=== PATIENT | male | born 1965 | race Caucasian/White ===

== ENCOUNTER → 2019-09-02 09:09 | Outpatient (CLI) | payer OTHER, SELFPAY ==
--- NOTE | 2019-09-02 | DI.MRI.S_ITS ---
PROCEDURE: MR PELIS WO/W CON INDICATIONS: PROSTATE CANCER TECHNIQUE: Coronal HASTE, axial T1 FSE with fat saturation, 3-plane nonbreath-hold T2 FSE. After the administration of contrast, dynamic axial, delayed axial and coronal VIBE or 2-D FLASH with fat saturation through the pelvis. Optional diffusion weighted imaging and ADC may be performed. COMPARISON: [facility], [place], [place] BONE SCAN WHOLE BODY, 08/22/2019, 12:28. [facility], CT, CT CHEST ABDOMEN PELVIS WITH CONTRAST, 08/26/2019, 12:52. FINDINGS: Image quality: Diffusion weighted and dynamic contrast enhanced images are diagnostic. Prostate: Gland size is 5.0 x 4.0 x 4.8 cm; ellipsoid gland volume is 50 mL. There is heterogeneous enlargement of the transition zone compatible with BPH. Lesion size(s): Lesion 1: 1.7 x 1.4 x 2.4 cm. Lesion location(s) (sector): Lesion 1: Left posterior peripheral zone within the mid prostate extending into the apex. Lesion description: Lesion 1: There is a lobulated lesion with indistinct margins. No definite extracapsular periprostatic invasion. No definite seminal vesicle invasion. T2 weighted imaging (T2WI) morphology score: Lesion 1: 5. Diffusion weighted imaging (DWI) morphology score: Lesion 1: 5. Dynamic contrast enhancement (DCE): Lesion 1: Present. Lesion PI-RADS score: Genitourinary system: Bladder wall thickness is normal. Distal ureters are non distended. Bowel and peritoneum: No pathologic free pelvic fluid. Inferior colon and small bowel loops are normal in caliber. Nodes and vessels: No pelvic or inguinal adenopathy by size criteria. Iliac vessels are normal in caliber. Soft tissues: No inguinal hernias. Bones: Marrow demonstrates normal overall signal, without suspicious lesions to suggest metastases. IMPRESSION: 1. PI-RADS 5 lesion within the left posterior peripheral zone in the mid-prostate extending into the apex consistent with patient's history of prostate cancer. No definite extracapsular periprostatic invasion. 2. No evidence of lymphadenopathy or metastatic disease in the pelvis. Dictated by: Max Daniel M.D. on 09/02/2019 at 15:58 Approved by: Max Daniel M.D. on 09/02/2019 at 16:11
== END ==
PROVIDERS: Visit Provider Specialist
DX: C61 Malignant neoplasm of prostate (principal)
CPT/HCPCS: 72197; A9579

== ENCOUNTER 2019-09-15 14:18 | Emergency (ER) | payer OTHER, SELFPAY ==
[2019-09-15 14:25] VITALS: BP 197/109; PULSE 94; RESP 18; TEMP 36.8; O2SAT 97
--- NOTE | 2019-09-15 14:32 | PC.NURSE ---
nasal clamp placed at time of triage
--- NOTE | 2019-09-15 16:30 | ED.EPISTAXIS ---
HPI - Epistaxis General Chief complaint: Nasal Problem Stated complaint: nose bleed 2 hours wont stop Time Seen by Provider: 09/15/19 15:40 Source: patient Mode of arrival: Ambulatory History of Present Illness HPI Narrative: Patient comes emergency department complaining of a nose bleed that started 2 hours ago in 1 stop. He denies trauma to his nose. He has chronic allergies but states they are not worse than usual, and that he has never had this happen before. Patient denies being on any anticoagulants. He has a history of hypertension, but states it is reasonably well controlled usually. No headache. No fevers. No other complaints at this time. No easy bruising or bleeding anywhere else. Related Data Previous Rx's Medication Instructions Recorded olopatadine [Patanol] 1 gtt OP BID #5 gtt 08/22/13 lisinopril-hydrochlorothiazide 1 tab PO QDAY #60 tab 09/06/16 omeprazole 20 mg PO Q DAY #60 cap 09/06/16 Allergies Allergy/AdvReac Type Severity Reaction Status Date / Time No Known Drug Allergies Allergy Verified 09/15/19 14:45 Review of Systems Constitutional Constitutional: Denies chills, Denies fatigue, Denies fever(s), Denies frequent falls, Denies lethargy and Denies weakness Eyes Eyes: Denies change in vision, Denies eye discharge, Denies irritation and Denies loss of vision ENT Ears, Nose, Mouth, and Throat: Denies change in voice, Denies dizziness, Reports epistaxis, Denies neck pain, Denies sore throat and Denies throat swelling Cardiovascular Cardiovascular: Denies chest pain, Denies irregular heart rhythm, Denies lightheadedness, Denies palpitations, Denies dyspnea, Denies dyspnea on exertion and Denies orthopnea Respiratory Respiratory: Denies cough, Denies dyspnea, Denies dyspnea on exertion and Denies wheezing Gastrointestinal Gastrointestinal: Denies abdominal pain, Denies change in bowel habits, Denies diarrhea, Denies nausea and Denies vomiting Genitourinary Genitourinary: Denies hematuria, Denies flank pain, Denies urinary incontinence and Denies urinary urgency Musculoskeletal Musculoskeletal: Denies back pain, Denies muscle weakness, Denies neck pain, Denies numbness and Denies tingling Integumentary/Breasts Skin/Breast: Denies pruritus, Denies erythema, Denies rash and Denies wounds Neurologic Neurologic: Denies behavioral changes, Denies confusion, Denies dizziness, Denies frequent falls, Denies loss of vision, Denies numbness, Denies tingling and Denies weakness Psychiatric Psychiatric: Denies anxiety, Denies behavioral changes, Denies confusion, Denies depression, Denies homicidal ideation and Denies suicidal ideation Endocrine Endocrine: Denies fatigue, Denies flushing and Denies palpitations Hematologic/Lymphatic Hematologic/Lymphatic: Denies easy bruising Allergic/Immunologic Allergic/Immunologic: Denies urticaria, Denies throat swelling and Denies wheezing Patient History Medical History Prostate cancer (Acute) Surgical History Status post appendectomy Social History Smoking Status: Never smoker Substance Use Type: does not use Exam Narrative Exam Narrative: Nose, continued: Blood appears to be coming from higher source in the left naris, which is not able to be visualized on exam. Initial Vital Signs Initial Vital Signs: Vital Signs Temperature 98.2 F 09/15/19 14:25 Pulse Rate 94 H 09/15/19 14:25 Respiratory Rate 18 09/15/19 14:25 Blood Pressure 197/109 H 09/15/19 14:25 Pulse Oximetry 97 09/15/19 14:25 Const General: cooperative and well developed Nutritional Appearance: well nourished Orientation: alert, awake, oriented x3 and not confused [facility] Head: normocephalic and atraumatic Ears: external ears normal Nose: external nose normal and epistaxis (Moderate, L naris) Face and sinus: face symmetric and No dry mucous membranes Mouth: oral mucosae normal and moist mucous membranes Teeth and gingiva: dentition normal Eyes General: appearance normal, both eyes and all related structures Eyelids: eyelids normal Conjunctivae: conjunctivae normal Sclera: sclerae normal Pupils: PERRL EOM: EOM intact bilaterally Neck Neck: normal visual inspection, trachea midline, No lymphadenopathy, No midline deformity and No JVD Lymphatic: No lymphedema Chest Chest: normal inspection of the chest Resp Effort & Inspection: normal respiratory effort, able to speak in complete sentences, no respiratory distress and no use of accessory muscles Back/Spine/Pelvis Back: No CVA tenderness Cervical Spine: cervical ROM normal and No pain with cervical ROM Thoracic/Lumbar Spine: thoracic and lumbar spine normal to inspection Skin General: no rashes or lesions noted, No jaundice and No petechiae Neuro General: alert, oriented x3, gait normal and no focal motor deficits Speech: speech normal Extrem General: full ROM Psych Appearance: well kempt Mental Status: mental status grossly normal Attitude: cooperative Thought Content: normal and suicidality Judgment: judgment good Course Course Course Narrative: Patient was initially treated with nasal packing with a rhino rocket 4.5 cm, which initially achieved hemostasis, but patient's bleeding began again approximately 15 minutes later. This time, a 7.5 cm rhino rocket was placed, and infused with TXA and oxymetazoline. Patient was without further bleeding after this. We have discussed home management the symptoms the need for follow-up with ENT in the next 3-4 days. Patient is agreeable to the plan. We have discussed the usual indications for return. Orders Ordered: Discontinued Medications Oxymetazoline HCl (Afrin) 2 sprays NASAL NOW ONE Stop: 09/15/19 15:48 Tranexamic Acid (Cyklokapron) 2,000 mg INJ INTRA-OP ONE Stop: 09/15/19 16:55 Vital Signs Vital signs: Vital Signs - 8 hr 09/15/19 14:25 Temperature 98.2 F Pulse Rate 94 H Respiratory Rate 18 Blood Pressure 197/109 H Pulse Oximetry 97 MDM - Epistaxis Medical Records Attestation: I reviewed the patient's medical records. Discharge Plan Departure Patient Disposition: Home Clinical Impression: Epistaxis Discharge Date/Time: 09/15/19 18:40 Instructions: DI for Nosebleed Activity Restrictions/Additional Instructions: Please follow up with ENT this week to have her packing removed and nose rechecked. Prescriptions: No Action olopatadine [Patanol] 5 ML drops 1 gtt OP BID Qty: 5 RF: 3 omeprazole 20 MG capsule,delayed release(DR/EC) 20 mg PO Q DAY Qty: 60 RF: 0 lisinopril-hydrochlorothiazide 20 MG/25 MG tablet 1 tab PO QDAY Qty: 60 RF: 0 Referrals: Mario Madison MD [Physician] -
[2019-09-15 18:40] VITALS: BP 179/101; PULSE 74; RESP 20; O2SAT 98
== END 2019-09-15 18:40 | disposition home or self-care (01) ==
PROVIDERS: Emergency Provider Emergency Medicine
DX: R04.0 Epistaxis (principal)
CPT/HCPCS: 30903; 99282

== ENCOUNTER → 2020-02-09 10:36 | Outpatient (CLI) | payer OTHER, SELFPAY ==
--- NOTE | 2020-02-09 | DI.CT.S_ITS ---
PROCEDURE: CT CHEST ABD PEL W CON INDICATIONS: Malignant neoplasm of prostate TECHNIQUE: After the administration of oral and intravenous contrast, 5 mm thick sections acquired from the lung apices to the symphysis. 5 mm coronal and sagittal reformats were performed, with additional 7 mm coronal MIP reformats through the lungs. For radiation dose reduction, the following was used: automated exposure control, adjustment of mA and/or kV according to patient size. COMPARISON: [facility], CT, CT CHEST ABDOMEN PELVIS WITH CONTRAST, 08/26/2019, 12:52. FINDINGS: Image quality: Excellent. CHEST: Lungs and pleura: No acute airspace opacities. Small amount of peripheral scar inferiorly and laterally in the left lower lobe. No suspicious nodules or masses. No pleural effusions or pneumothorax. Central and peripheral airways appear patent and normal in caliber. Mediastinum: Heart size is normal. No pericardial effusion. No mediastinal or hilar adenopathy by size criteria. Thoracic aorta and central pulmonary arteries are normal in size. Esophagus is normal in caliber. No hiatal hernia. Chest wall: No axillary or supraclavicular adenopathy by size criteria. Thyroid gland is normal. ABDOMEN: Solid organs: Liver is normal in size and enhancement. Gallbladder is normal. Biliary system is non dilated. Pancreas enhances normally. Spleen is normal in size and enhancement. No adrenal nodules. Kidneys demonstrate normal size and enhancement, without hydronephrosis. Peritoneum and bowel: Bowel loops demonstrate normal wall thickness and caliber. No free fluid or air. Nodes and vessels: No retroperitoneal or mesenteric adenopathy by size criteria. Aorta and inferior vena cava are normal in size. Miscellaneous: No ventral hernias. PELVIS: Genitourinary: Bladder wall thickness is normal. Interval prostatectomy. Miscellaneous: There is a left inguinal fluid collection measuring 3.7 x 2.5 cm. The overlying distal left rectus sheath demonstrates moderate inflammatory changes. There is slight increase in size of left inguinal lymph nodes, probably reactive.No inguinal hernias. Bones: Small sclerotic bone lesions in the left glenoid, left T7 vertebral body lamina, L5 vertebral body, bilateral iliac bones, right superior acetabulum, left femoral head appear stable, slightly more sclerotic. No vertebral body compression fractures. IMPRESSION: 1. Interval prostatectomy with small left inguinal fluid collection, likely a lymphocele or seroma. There is adjacent left inguinal adenopathy, presumably reactive. 2. Multiple small scattered sclerotic bone lesions are stable size, but have become slightly more sclerotic. This may be technical in nature. Correlate with bone scan. Osseous metastases are not excluded. Dictated by: Brittany Baker M.D. on 02/09/2020 at 13:47 Approved by: Brittany Baker M.D. on 02/09/2020 at 14:04
--- NOTE | 2020-02-09 | DI.NM.S_ITS ---
PROCEDURE: [place] BONE SCAN WHOLE BODY RADIOPHARMACEUTICAL: 20.2 mCi Tc-99m MDP IV. INDICATIONS: Malignant neoplasm of prostate TECHNIQUE: Delayed whole-body scintigrams were obtained approximately 3-4 hours after intravenous injection of radiotracer. Anterior and posterior views were acquired from vertex to feet. COMPARISON: [facility], [place], [place] BONE SCAN WHOLE BODY, 08/22/2019, 12:28. [facility], CT, CT CHEST ABD PEL W CON, 02/09/2020, 11:30. FINDINGS: As was previously seen on posterior imaging at the midthoracic spine there is right greater than left isotope uptake, equivalent on the current study with reference to the study from 08/22/19. CT scanning obtained 02/09/20 allows visualization of this area in greater detail, documenting right greater than left degenerative osteophytic spurring as the underlying cause. Additionally, there is left greater than right facet osteoarthritis at the L5-S1 articulation, also seen by posterior bone scan imaging and unchanged from the prior bone scan. Degenerative changes greater at the right a.c. joint and on the left, at the right patellofemoral joint on the left. IMPRESSION: Stable degenerative changes as discussed, with benefits of CT scanning for correlation on the current nuclear medicine bone scan. No suspicion for development of osseous metastatic disease, no change management specialist time. Dictated by: Rodolfo Unger M.D. on 02/09/2020 at 15:52 Approved by: Rodolfo Unger M.D. on 02/09/2020 at 15:56
== END ==
PROVIDERS: PCP Student in an Organized Health Care Education/Training Program; Referring Provider Specialist; Visit Provider Specialist
DX: C61 Malignant neoplasm of prostate (principal); M89.9 Disorder of bone, unspecified; R59.0 Localized enlarged lymph nodes; M47.817 Spondylosis without myelopathy or radiculopathy, lumbosacral region
CPT/HCPCS: 71260; 74177; 78306; A9503; Q9967

== ENCOUNTER → 2020-07-23 11:34 | Outpatient (CLI) | payer OTHER, SELFPAY ==
[2020-07-23 13:31] LABS: TSH w/ Reflex to FT4 1.04 uIU/mL (0.47-4.68)
== END ==
PROVIDERS: PCP Family Medicine; Referring Provider Family Medicine; Visit Provider Family Medicine
DX: Z13.29 Encounter for screening for other suspected endocrine disorder (principal); M25.559 Pain in unspecified hip; M16.0 Bilateral primary osteoarthritis of hip; M47.816 Spondylosis without myelopathy or radiculopathy, lumbar region
CPT/HCPCS: 36415; 84443

== ENCOUNTER → 2020-07-23 11:48 | Outpatient (CLI) | payer OTHER, SELFPAY ==
--- NOTE | 2020-07-23 11:50 | DI.RAD.S_ITS ---
PROCEDURE: XR HIP W PEL IF DONE LT MIN 4V INDICATIONS: hip pain TECHNIQUE: AP pelvis with lateral view(s) of the left and right hip(s). COMPARISON: None. FINDINGS: Bones: No fracture. Small right os acetabulum incidentally noted. Lower lumbar spondylosis and facet arthropathy. Mild bilateral hip joint degeneration. Soft tissues: The visualized bowel gas pattern is normal. No suspicious soft tissue calcifications. IMPRESSION: Mild bilateral hip joint degeneration. Dictated by: Dario Olivia M.D. on 07/23/2020 at 13:32 Approved by: Dario Olivia M.D. on 07/23/2020 at 13:34
== END ==
PROVIDERS: PCP Family Medicine; Referring Provider Family Medicine; Visit Provider Family Medicine
DX: M25.559 Pain in unspecified hip (principal); M16.0 Bilateral primary osteoarthritis of hip; M47.816 Spondylosis without myelopathy or radiculopathy, lumbar region; Z13.29 Encounter for screening for other suspected endocrine disorder
CPT/HCPCS: 36415; 73522; 84443

== ENCOUNTER → 2020-08-10 12:15 | Outpatient (CLI) | payer OTHER, SELFPAY ==
[2020-08-12 16:12] LABS: Prostate Specific Antigen 0.423 ng/mL (0.10-4.00)
== END ==
PROVIDERS: PCP Family Medicine; Referring Provider Specialist; Visit Provider Specialist
DX: C61 Malignant neoplasm of prostate (principal)
CPT/HCPCS: 36415; 84153

== ENCOUNTER → 2021-02-14 14:44 | Outpatient (CLI) | payer OTHER, SELFPAY ==
[2021-02-14 15:51] LABS: Prostate Specific Antigen < 0.064 ng/mL (0.10-4.00)
== END ==
PROVIDERS: PCP Family Medicine; Referring Provider Specialist; Visit Provider Specialist
DX: R97.20 Elevated prostate specific antigen [PSA] (principal)
CPT/HCPCS: 36415; 84153

== ENCOUNTER → 2021-02-23 12:12 | Outpatient (CLI) | payer OTHER, SELFPAY ==
[2021-02-23 13:03] LABS: Add Manual Diff / Slide Review NO; Basophils Absolute Auto 100 /uL (0-100); Basophils Percent Auto 0.7 % (0-2); Eosinophils Absolute Auto 200 /uL (0-450); Eosinophils Percent Auto 2.2 % (2-4); Hematocrit 39.7 % (41-53); Hemoglobin 13.9 g/dL (13.5-17.5); Lymphocytes Absolute Auto 800 /uL (1100-4500); Lymphocytes Percent Auto 10.1 % (25-40); Mean Corpuscular HGB Conc 34.9 % (30-36); Mean Corpuscular Hemoglobin 32.7 PG (26-34); Mean Corpuscular Volume 93.7 fL (80-100); Monocytes Absolute Auto 600 /uL (0-900); Monocytes Percent Auto 7.1 % (3-14); Neutrophils Absolute Auto 6600 /uL (1500-7000); Neutrophils Percent Auto 79.9 % (50-75); Platelet Count 225 X10^3/uL (150-400); Red Blood Cell Count 4.24 X10^6/uL (4.5-5.9); White Blood Cell Count 8.3 X10^3/uL (4.5-11.0)
[2021-02-23 13:39] LABS: Alanine Aminotransferase 21 IU/L (<50); Albumin 4.5 g/dL (3.5-5.0); Albumin Globulin Ratio 1.5 (1.0-2.8); Alkaline Phosphatase 96 U/L (38-126); Aspartate Aminotransferase 21 IU/L (17-59); BUN Creatinine Ratio 18.7 (6-22); Bilirubin Total 0.4 mg/dL (0.2-1.3); Blood Urea Nitrogen 14 mg/dL (9-20); Calcium 9.7 mg/dL (8.4-10.2); Carbon Dioxide 21 mmol/L (22-32); Chloride 101 mmol/L (98-107); Estimated Glomerular Filt Rate > 60.0 mL/min (>60); Glucose 365 mg/dL (70-100); HEMOLYSIS < 15 (0-50); Potassium 4.4 mmol/L (3.4-5.1); Sodium 135 mmol/L (137-145); Total Protein 7.5 g/dL (6.3-8.2)
[2021-02-23 14:26] LABS: Hemoglobin A1C% w Est Avg Glu > 14.0 % (4.0-6.0)
== END ==
PROVIDERS: PCP Family Medicine; Referring Provider Family Medicine; Visit Provider Family Medicine
DX: C61 Malignant neoplasm of prostate (principal); R73.9 Hyperglycemia, unspecified; R81 Glycosuria
CPT/HCPCS: 36415; 80053; 83036; 85025

== ENCOUNTER → 2021-05-12 10:15 | Outpatient (CLI) | payer OTHER, SELFPAY ==
[2021-05-12 12:29] LABS: Prostate Specific Antigen < 0.064 ng/mL (0.10-4.00)
== END ==
PROVIDERS: PCP Family Medicine; Referring Provider Specialist; Visit Provider Specialist
DX: R97.20 Elevated prostate specific antigen [PSA] (principal)
CPT/HCPCS: 36415; 84153

== ENCOUNTER → 2021-05-27 10:41 | Outpatient (CLI) | payer OTHER, SELFPAY ==
[2021-05-27 12:35] LABS: Hemoglobin A1C% w Est Avg Glu 7.3 % (4.0-6.0)
== END ==
PROVIDERS: PCP Family Medicine; Referring Provider Family Medicine; Visit Provider Family Medicine
DX: E11.9 Type 2 diabetes mellitus without complications (principal); Z79.4 Long term (current) use of insulin
CPT/HCPCS: 36415; 83036

== ENCOUNTER → 2021-08-19 12:52 | Outpatient (CLI) | payer OTHER, SELFPAY ==
[2021-08-19 16:06] LABS: Prostate Specific Antigen < 0.064 ng/mL (0.10-4.00)
== END ==
PROVIDERS: PCP Family Medicine; Referring Provider Specialist; Visit Provider Specialist
DX: C61 Malignant neoplasm of prostate (principal)
CPT/HCPCS: 36415; 84153

== ENCOUNTER → 2021-10-12 10:08 | Outpatient (CLI) | payer OTHER, SELFPAY ==
[2021-10-12 11:32] LABS: Hemoglobin A1C% w Est Avg Glu 6.3 % (4.0-6.0)
[2021-10-12 12:16] LABS: Alanine Aminotransferase 30 IU/L (<50); Albumin 4.5 g/dL (3.5-5.0); Albumin Globulin Ratio 1.7 (1.0-2.8); Alkaline Phosphatase 48 U/L (38-126); Aspartate Aminotransferase 27 IU/L (17-59); BUN Creatinine Ratio 21.9 (6-22); Bilirubin Total 0.4 mg/dL (0.2-1.3); Blood Urea Nitrogen 16 mg/dL (9-20); Calcium 10.3 mg/dL (8.4-10.2); Carbon Dioxide 23 mmol/L (22-32); Chloride 106 mmol/L (98-107); Cholesterol 148 mg/dL (140-199); Estimated Glomerular Filt Rate > 60.0 mL/min (>60); Globulin 2.6 g/dL (1.7-4.1); Glucose 138 mg/dL (70-100); HDL Cholesterol 47 mg/dL (40-60); HEMOLYSIS < 15 (0-50); LDL Cholesterol Calculated 82 mg/dL (<100); Potassium 4.4 mmol/L (3.4-5.1); Sodium 139 mmol/L (137-145); Total Protein 7.1 g/dL (6.3-8.2); Triglycerides 93 mg/dL (35-150)
== END ==
PROVIDERS: PCP Family Medicine; Referring Provider Internal Medicine Endocrinology, Diabetes & Metabolism; Visit Provider Internal Medicine Endocrinology, Diabetes & Metabolism
DX: E11.43 Type 2 diabetes mellitus with diabetic autonomic (poly)neuropathy (principal); Z79.4 Long term (current) use of insulin; E78.2 Mixed hyperlipidemia; I10 Essential (primary) hypertension
CPT/HCPCS: 36415; 80053; 80061; 83036

== ENCOUNTER → 2021-11-17 10:56 | Outpatient (CLI) | payer OTHER, SELFPAY ==
[2021-11-17 12:50] LABS: Prostate Specific Antigen < 0.064 ng/mL (0.10-4.00)
== END ==
PROVIDERS: PCP Family Medicine; Referring Provider Specialist; Visit Provider Specialist
DX: C61 Malignant neoplasm of prostate (principal)
CPT/HCPCS: 36415; 84153

== ENCOUNTER → 2022-02-13 13:36 | Outpatient (CLI) | payer OTHER, SELFPAY ==
[2022-02-13 15:15] LABS: Prostate Specific Antigen < 0.064 ng/mL (0.10-4.00)
== END ==
PROVIDERS: PCP Family Medicine; Referring Provider Specialist; Visit Provider Specialist
DX: C61 Malignant neoplasm of prostate (principal)
CPT/HCPCS: 36415; 84153

== ENCOUNTER → 2022-04-13 15:07 | Outpatient (CLI) | payer OTHER, SELFPAY ==
[2022-04-13 16:16] LABS: COVID19 -Nasal RAPID Negative (Negative)
== END ==
PROVIDERS: PCP Family Medicine; Visit Provider Surgery
DX: Z01.812 Encounter for preprocedural laboratory examination (principal); Z20.822 Contact with and (suspected) exposure to COVID-19
CPT/HCPCS: 87635; C9803

== ENCOUNTER 2022-04-14 09:11 | Day surgery (SDC) | payer OTHER, SELFPAY ==
--- NOTE | 2022-04-14 09:28 | P.HP_ITS ---
History of Present Illness History of Present Illness Date Patient Seen: 04/14/22 Time Patient Seen: 09:28 Chief complaint: SCREENING COLONOSCOPY Narrative: Patient has history of prostate cancer status post treatment that included radiation. Screening CT scan shows thickening in the rectum but no masses. He has had previous colonoscopies. Patient History Medical History Diabetes mellitus with insulin therapy Elevated PSA Erectile dysfunction GERD (gastroesophageal reflux disease) Glucosuria Hyperglycemia Hypertension Prostate cancer Prostate cancer Seasonal allergic rhinitis Surgical History H/O prostate biopsy H/O prostatectomy Status post appendectomy Family & Social History Family History Father Hypertension Mother Alzheimer's dementia Tobacco & Substance use: Smoking Status Never smoker alcohol intake current Substance Use Type does not use Meds Home Medications and Allergies Home Medications Medication Instructions Recorded Confirmed Type amlodipine 10 mg tablet 10 mg PO DAILY 07/23/20 04/14/22 History hydrochlorothiazide 25 mg tablet 25 mg PO DAILY 07/23/20 04/14/22 History losartan 100 mg tablet 100 mg PO DAILY 07/23/20 02/16/22 History denosumab 60 mg/mL subcutaneous 60 mg SUBCUT [id number] #1 ml 08/16/20 04/14/22 Rx syringe (Prolia) leuprolide (3 month) 22.5 mg (3 22.5 mg SUBCUT [id number] #1 each 08/16/20 04/14/22 Rx month) subcutaneous syringe (Eligard) blood-glucose meter (Accu-Chek #1 ea 03/02/21 02/16/22 Rx Guide Glucose Meter) rosuvastatin 5 mg tablet 5 mg PO DAILY 06/01/21 04/14/22 History insulin glargine 100 unit/mL (3 40 unit (0.4 mL) SUBCUT QPM #36 ml 11/10/21 04/14/22 Rx mL) subcutaneous pen (Lantus Solostar U-100 Insulin) megestrol 20 mg tablet See Rx Instructions .ROUTE 03/06/22 04/14/22 Rx .COMPLEX #180 tab metformin 1,000 mg tablet 1,000 mg PO BID #180 tab 03/06/22 Rx olopatadine 0.1 % eye drops See Rx Instructions .ROUTE 03/06/22 Rx .COMPLEX #25 ml omeprazole 20 mg capsule,delayed 20 mg PO Q DAY #90 cap 03/06/22 Rx release fluticasone propionate 50 2 spray INTRANASAL DAILY #48 ml 03/21/22 04/14/22 Rx mcg/actuation nasal spray,suspension (Flonase Allergy Relief) blood-glucose meter (FreeStyle #1 ea 04/06/22 Rx Lite Meter) pen needle, diabetic 33 gauge x #100 ea 04/06/22 Rx 5/32 (Comfort EZ Pen [place]) blood sugar diagnostic (FreeStyle #200 ea 04/08/22 Rx Lite Strips) lancets 28 gauge (FreeStyle #200 ea 04/08/22 Rx Lancets) Allergies Allergy/AdvReac Type Severity Reaction Status Date / Time lisinopril Allergy Mild cough Verified 04/14/22 09:17 Review of Systems Review of Systems ROS: Yes All systems reviewed with the patient and are negative except as otherwise documented Exam Const General: cooperative and comfortable HENMT Head: normocephalic and atraumatic Face and sinus: normal facial exam Eyes General: appearance normal, both eyes and all related structures Neck Neck: trachea midline Chest Chest: normal inspection of the chest Resp Effort & Inspection: normal respiratory effort and able to speak in complete sentences Cardio Rate: tachycardic Rhythm: regular rhythm GI Inspection: normal to inspection Back/Spine/Pelvis Back: normal to inspection Skin General: atrophy and dry skin Neuro General: patient alert, patient awake, patient oriented x3 and no focal motor deficits Extrem General: normal to inspection Psych Appearance: grossly normal Attitude: cooperative Judgment: judgment good Assessment & Plan Assessment & Plan narrative: Abnormal CT scan with thickening of rectal wall s/p radiation treatment for prostate cancer. Plan: colonoscopy with moderate sedation COVID-19 COVID-19 status: Negative Time Spent With Patient Time with patient: less than 30 minutes Critical Care time: I spent a total of [] minutes of critical care time on this patient's care today; this time is exclusive of procedural time.
[2022-04-14 09:32] VITALS: BP 146/91; PULSE 110; RESP 18; TEMP 36.3; O2SAT 98
[2022-04-14] MEDS: LACTATED RINGERS 1,000 ML 100 ML IV (09:32)
[2022-04-14 09:33] VITALS: BMI 32.5
[2022-04-14] MEDS: MIDAZOLAM 5 MG/5 ML VIAL 9 MG IV (09:49)
[2022-04-14] MEDS: fentaNYL 250 MCG/5 ML INJ 150 MCG IV (09:49)
--- NOTE | 2022-04-14 10:40 | PM.OP.COLON ---
Operative Date/Time/Diagnoses Date of procedure: 04/14/22 Time of procedure: 10:40 Pre-op diagnosis: Colon cancer screening, abnormal CT scan of thickening in the rectum Post-op diagnosis: same Procedure & Clinicians Study performed: Colonoscopy with cold snare biopsy using moderate sedation Same procedure as scheduled: Yes Indications: Colon cancer screening and evaluation of thickened area of rectum on CT Surgeon: Ruba Umaña Procedure Notes SCOAP/Timeout: Done Procedure in detail: Preop diagnosis: Colon cancer screening and evaluation of thickened area on CT of the rectum. Postop diagnosis: Same Operative procedure: Colonoscopy with cold snare polypectomy and moderate sedation Surgeon: Emilia Umaña MD Findings: Single polyp in the cecum approximately 4 mm in size taken with cold snare, mild scant diverticulosis Thickening of the rectum in the 6 o'clock position in. Benign in nature Procedure: Patient placed in lateral position. Rectal exam performed with the above findings. So ago was inserted into the rectum and advanced to ileocecal valve with significant difficulty due to the tortuous component of his colon. Abdominal pressure was applied as well as repositioning of the patient. Insufflation extraction of the scope including retroflex in the rectum had the above findings. Cold snare of polypectomy carried out in the cecum unable to retrieve polyp. Impression: Cecal polyp appeared grossly to be adenomatous. I would unable to retrieve after cold snare polypectomy. Rectal area is benign thickening related to his prior surgery Repeat colonoscopy 5 years unless change in clinical condition. Scope withdrawal time: 33 Sedation minutes: 48 Specimen(s): none sent Complications: none Impression: 4mm adenomatous cecal polyp removed in cecum, unable to retrieve. Scar tissue in the rectum no other abnormalities. Plan: repeat colonoscopy in 5 years. Post-procedure Recommendations: Colonoscopy in 5 years Follow up: as needed Disposition: PACU
[2022-04-14 10:42] VITALS: BP 133/79; PULSE 85; RESP 16; TEMP 37.3; O2SAT 97
[2022-04-14 10:48] VITALS: BP 128/80; PULSE 91; RESP 12; O2SAT 97
[2022-04-14 10:52] VITALS: BP 129/84; PULSE 90; RESP 16; O2SAT 97
[2022-04-14 10:55] VITALS: BP 134/85; PULSE 92; RESP 18; TEMP 36.4; O2SAT 96
== END 2022-04-14 11:10 | disposition home or self-care (01) ==
PROVIDERS: PCP Family Medicine; Referring Provider Surgery; Visit Provider Surgery
PROC: 0DJD8ZZ Inspection of Lower Intestinal Tract, Via Natural or Artificial Opening Endoscopic (ICD-10-PCS; CPT 45378; principal; 2022-04-14 10:00)
DX: D12.0 Benign neoplasm of cecum (principal); E11.9 Type 2 diabetes mellitus without complications; Z79.4 Long term (current) use of insulin; Z85.46 Personal history of malignant neoplasm of prostate; I10 Essential (primary) hypertension; K21.9 Gastro-esophageal reflux disease without esophagitis
CPT/HCPCS: 45385; 99152; 99153; J2250; J3010

== ENCOUNTER → 2022-05-10 13:31 | Outpatient (CLI) | payer OTHER, SELFPAY ==
[2022-05-10 14:49] LABS: Prostate Specific Antigen < 0.064 ng/mL (0.10-4.00)
== END ==
PROVIDERS: PCP Family Medicine; Referring Provider Specialist; Visit Provider Specialist
DX: R97.20 Elevated prostate specific antigen [PSA] (principal)
CPT/HCPCS: 36415; 84153

== ENCOUNTER → 2022-06-07 14:30 | Outpatient (CLI) | payer OTHER, SELFPAY ==
[2022-06-07 15:19] LABS: COVID19 -Nasal RAPID Negative (Negative)
== END ==
PROVIDERS: PCP Family Medicine; Visit Provider Specialist
DX: Z20.822 Contact with and (suspected) exposure to COVID-19 (principal)
CPT/HCPCS: 87635; C9803

== ENCOUNTER 2022-06-09 07:39 | Day surgery (SDC) | payer OTHER, SELFPAY ==
[2022-06-09] VITALS (9 sets, daily range): BP systolic 121–163; BP diastolic 38–97; PULSE 83–107; RESP 14–17; TEMP 36.1–36.6; O2SAT 94–98; BMI 31.4
[2022-06-09] MEDS: LACTATED RINGERS 1,000 ML 42 ML IV (08:28)
--- NOTE | 2022-06-09 08:59 | P.OP.PRE_ITS ---
Pre-operative Note COVID-19 Criteria for continued procedure: Expected advancement of disease process, Possibility delay results in more complex future surgery or treatment, Increased loss of function, Deterioration of the patient's condition or overall health, Delay expected to result in less-positive ultimate med/surg outcome and Non- surgical alternatives not available or appropriate per current SOC Interval Note History & Physical reviewed/Exam performed by Physician: Yes Changes to H&P: No
[2022-06-09] MEDS: CEFAZOLIN 2 GM/20 ML SYRINGE IV (09:27)
--- NOTE | 2022-06-09 09:46 | SUR.OPER ---
Lithotomy on padded OR bed, head on pillow, arms secured on padded arm boards at <90 degrees abduction. Legs secured in padded yellow fins stirrups.
[2022-06-09] MEDS: BELLADONNA/OPIUM SUPPOSITORIES 1 EACH PR (10:03)
--- NOTE | 2022-06-09 10:07 | P.OP_ITS ---
Operative Date/Time/Diagnoses Date of procedure: 06/09/22 Time of procedure: 10:07 Pre-op diagnosis: 1. Bladder neck contracture. 2. Intermittent gross hematuria. 3. Radiation cystitis Post-op diagnosis: same Procedure & Clinicians Procedure: 1. Cystoscopy/Transurethral incision and dilation of bladder neck contracture. 2. Complicated catheter placement. Same procedure as scheduled: Yes Indications: 1. Bladder neck contracture. 2. Intermittent gross hematuria. 3. Radiation cystitis. Surgeon: Patricia Wong Click Yes if Unassisted: Yes Anesthesia Type: General Operative Notes Findings: 1. Urethra-no annular stricture or lesions. 2. External sphincter-coapted with mild mucosal radiation changes. 3. Prostate-surgically absent. 4. [id number] [place]ian horizontal bladder neck contracture with poor vascularity and dense fibrosis. Bladder findings are unchanged from outpatient proximal endoscopy described at [facility] encounter. Closure Type: not applicable Specimen(s): none sent Applied: catheter (Twenty [place]ian silicone catheter fashioned into [place]ack tip.) Estimated Blood Loss (mL): 0 Procedure in detail: The patient was positioned in supine was administered general anesthesia. He was then positioned in semi lithotomy and the lower abdomen, genitalia, and groin were prepped and draped in sterile fashion. The 22 [place] visual urethral tone was then vas so lower urinary tract findings as described above up to the level of the tight bladder neck. Cold knife incisions were then made at 8, 10, 12, 2, and 4 o'clock positions. Depth was taken deeply into the densely fibrotic tissue and till vascularity of tissue was evidence by visible bleeding. The scope was then used to fulcrum and dilate the bladder neck laterally, anteriorly, and posteriorly. A stiff 0.35 guidewire was then advanced through the working channel the visual urethral tone and the scope was backloaded off the wire. Now an 18 [place]ian followed by a 20 [place]ian serpentine dilator was advanced over the wire and readily accessed into the bladder. The 20 [place] serpentine dilator was then backloaded off the wire. A 20 [place] silicone catheter was then fashioned into a [place] tip using the catheter punch device. The catheter was then advanced over the wire and passed into the bladder with mild difficulty due to relative pelvic floor fixation. The guidewire was removed and the balloon was filled to 10 cc. The catheter was then cycled with irrigant to assure patency. It was then affixed to gravity drainage. The patient was then repositioned in supine, was awakened common then was transported recovery in stable condition. Complications: none Post-operative Condition: stable Disposition: PACU Plan for aftercare: Discharge home.
[2022-06-09] MEDS: ACETAMINOPHEN 325 MG TABLET 975 MG PO (10:23)
[2022-06-09] MEDS: OXYCODONE IR 5 MG TABLET PO (10:23)
== END 2022-06-09 11:25 | disposition home or self-care (01) ==
PROVIDERS: PCP Family Medicine; Referring Provider Specialist; Visit Provider Specialist
PROC: 0TBC8ZZ Excision of Bladder Neck, Via Natural or Artificial Opening Endoscopic (ICD-10-PCS; CPT 52500; principal; 2022-06-09 09:15)
DX: N32.0 Bladder-neck obstruction (principal); R31.0 Gross hematuria; N30.41 Irradiation cystitis with hematuria; I10 Essential (primary) hypertension; E11.9 Type 2 diabetes mellitus without complications; Z79.4 Long term (current) use of insulin; Z79.84 Long term (current) use of oral hypoglycemic drugs
CPT/HCPCS: 52275; 82962; J0690; J1100; J2250; J2405; J2704; J3010

== ENCOUNTER 2022-07-02 04:51 | Emergency (ER) | payer OTHER, SELFPAY ==
[2022-07-02 05:03] VITALS: BP 183/92; PULSE 123; RESP 17; TEMP 36.9; O2SAT 98; BMI 31.0
[2022-07-02 05:15] LABS: Bilirubin Urine UA NEGATIVE (NEGATIVE); Color Urine UA RED; Glucose Urine UA TRACE g/dL (Negative); Ketones Urine UA 1+ (NEGATIVE); Leukocyte Esterase Urine UA 2+ (NEGATIVE); Nitrite Urine UA POSITIVE (Negative); Occult Blood Urine UA 3+ (Negative); Protein Urine UA 3+ (Negative); Specific Gravity Urine UA <=1.005 (1.000-1.035); pH Urine UA 7.5 (4.5-8.0)
--- NOTE | 2022-07-02 05:15 | ED.MALEGU ---
HPI - Male Genitourinary <Mateusz Milton MD - Last Filed: 07/17/22 07:33> General Chief complaint: Urogenital-Male Stated complaint: blood in urine Time Seen by Provider: 07/02/22 05:12 Source: patient Mode of arrival: Ambulatory History of Present Illness HPI Narrative: 57-year-old man with hypertension comes to the emergency department today because of bloody urine. He was treated for prostate cancer including radiation a couple of years ago and developed radiation cystitis. Couple of weeks ago 1 of the nurses was demonstrating catheterization that he was to continue twice daily to make sure the bladder was completely empty as well as to maintain the opening of the bladder neck that was accomplished couple of weeks ago surgically. There was a fair amount of bleeding but resolved after an hour over the past couple of weeks he notices a little bit of blood with catheterizations but then a couple of days ago a much more bleeding the last about an hour and he notices since then over the past 2 days that if he waits too long between attempts to void, he will have a large blood clot and will have to strain the urine to get it out. He is concerned about how long this has persisted at this point. No fever, no cough no abdominal pain, no vomiting. Related Data Home Medications Medication Instructions Recorded Confirmed amlodipine 10 mg tablet 10 mg PO DAILY 07/23/20 07/03/22 hydrochlorothiazide 25 mg tablet 25 mg PO DAILY 07/23/20 07/03/22 losartan 100 mg tablet 100 mg PO DAILY 07/23/20 07/03/22 dulaglutide 1.5 mg/0.5 mL 1.5 mg SUBCUT QWEEK 06/09/22 07/03/22 subcutaneous pen injector (Trulicity) megestrol 20 mg tablet 20 mg PO BID 07/03/22 07/03/22 Previous Rx's Medication Instructions Recorded denosumab 60 mg/mL subcutaneous 60 mg SUBCUT [id number] #1 mL 08/16/20 syringe (Prolia) insulin glargine 100 unit/mL (3 40 unit (0.4 mL) SUBCUT QPM #36 mL 11/10/21 mL) subcutaneous pen (Lantus Solostar U-100 Insulin) metformin 1,000 mg tablet 1,000 mg PO BID #180 tabs 03/06/22 olopatadine 0.1 % eye drops See Rx Instructions .Route 03/06/22 .COMPLEX #25 mL omeprazole 20 mg capsule,delayed 20 mg PO Q DAY #90 caps 03/06/22 release fluticasone propionate 50 2 spray intranasal DAILY #48 mL 03/21/22 mcg/actuation nasal spray,suspension (Flonase Allergy Relief) oxybutynin chloride 5 mg 5 mg PO DAILY #90 tabs 07/12/22 tablet,extended release 24 hr (Ditropan XL) Allergies Allergy/AdvReac Type Severity Reaction Status Date / Time lisinopril Allergy Mild cough Verified 06/09/22 07:48 Review of Systems <Mateusz Milton MD - Last Filed: 07/17/22 07:33> Review of Systems Narrative: Complete review of systems is negative other than as noted above. Patient History <Mtaeusz Milton MD - Last Filed: 07/17/22 07:33> Medical History Acquired contracture of bladder neck Diabetes mellitus with insulin therapy Elevated PSA Erectile dysfunction GERD (gastroesophageal reflux disease) Glucosuria Gross hematuria Hyperglycemia Hypertension Prostate cancer Prostate cancer Radiation cystitis Seasonal allergic rhinitis Surgical History H/O prostate biopsy H/O prostatectomy Status post appendectomy Family History Father Hypertension Mother Alzheimer's dementia Social History household members: spouse Smoking Status: Never smoker alcohol intake: current Smoking Status: Never smoker alcohol intake frequency: 3 or more drinks per day Substance Use Type: does not use Exam <Mateusz Milton MD - Last Filed: 07/17/22 07:33> Narrative Exam Narrative: GENERAL: Alert, cooperative and in no distress. HEAD: Atraumatic. Normocephalic. EYES: Sclera are clear without icterus. Extraocular movements are full. ENT: No rhinorrhea. Oropharynx is moist. Mouth exam is benign. NECK: Supple. Full range of motion. CARDIOVASCULAR: Tachycardia and rhythm without murmur gallop or rub. RESPIRATORY: Clear to auscultation. Breath sounds equal bilaterally. No wheezes, rales, or rhonchi. GASTROINTESTINAL: Abdomen soft, non-tender, nondistended. EXTREMITIES: No edema, full range of motion. No obvious trauma. BACK: Normal inspection, no CVA tenderness. NEURO: Nonfocal examination, normal speech, normal gait. SKIN: No rash or erythema of visible areas PSYCH: Normally oriented. Normal range of affect. Appropriate behavior Initial Vital Signs Initial Vital Signs: Vital Signs Temperature 98.5 F 07/02/22 05:03 Pulse Rate 123 H 07/02/22 05:03 Respiratory Rate 17 07/02/22 05:03 Blood Pressure 183/92 H 07/02/22 05:03 Pulse Oximetry 98 07/02/22 05:03 Oxygen Delivery Method 07/02/22 05:03 <Praveen Acharya DO - Last Filed: 07/04/22 11:34> Initial Vital Signs Initial Vital Signs: Vital Signs Temperature 98.5 F 07/02/22 05:03 Pulse Rate 123 H 07/02/22 05:03 Respiratory Rate 17 07/02/22 05:03 Blood Pressure 183/92 H 07/02/22 05:03 Pulse Oximetry 98 07/02/22 05:03 Oxygen Delivery Method 07/02/22 05:03 Course <Mateusz Milton MD - Last Filed: 07/17/22 07:33> Orders Ordered: Discontinued Medications Sodium Chloride (Normal Saline 0.9%) 1,000 mls @ 1,000 mls/hr IV BOLUS ONE Stop: 07/02/22 06:30 Last Admin: 07/02/22 07:03 Dose: Not Given Documented By: OLIVIA Lidocaine HCl (Lidocaine 2% (Glydo) 6 Ml Gel) 6 ml TOP NOW ONE Stop: 07/02/22 07:22 Last Admin: 07/02/22 12:18 Dose: 6 ml Documented By: KF Consultations Consultation #1: I spoke to Dr. Gonzalez at 6:45 a.m. who recommends bladder irrigation with sterile water with a 22 or 24 Irish Hoffman catheter. If we can get to run clear, we should remove the catheter and he should do no further catheterizations and follow-up with Dr. Wong in the next couple of days. The patient is amenable to this plan. Vital Signs Vital signs: Vital Signs - 8 hr 07/02/22 05:03 07/02/22 07:56 07/02/22 08:00 Temperature 98.5 F Pulse Rate 123 H 101 H Respiratory Rate 17 Blood Pressure 183/92 H 171/84 H Pulse Oximetry 98 99 Oxygen Delivery Method Room Air Room Air 07/02/22 07:56 Temperature Pulse Rate Respiratory Rate Blood Pressure Pulse Oximetry 97 Oxygen Delivery Method <Praveen Acharya DO - Last Filed: 07/04/22 11:34> Orders Ordered: Discontinued Medications Sodium Chloride (Normal Saline 0.9%) 1,000 mls @ 1,000 mls/hr IV BOLUS ONE Stop: 07/02/22 06:30 Last Admin: 07/02/22 07:03 Dose: Not Given Documented By: ERIKW Lidocaine HCl (Lidocaine 2% (Glydo) 6 Ml Gel) 6 ml TOP NOW ONE Stop: 07/02/22 07:22 Last Admin: 07/02/22 12:18 Dose: 6 ml Documented By: KF Vital Signs Vital signs: Vital Signs - 8 hr 07/02/22 05:03 07/02/22 07:56 07/02/22 08:00 Temperature 98.5 F Pulse Rate 123 H 101 H Respiratory Rate 17 Blood Pressure 183/92 H 171/84 H Pulse Oximetry 98 99 Oxygen Delivery Method Room Air Room Air 07/02/22 07:56 Temperature Pulse Rate Respiratory Rate Blood Pressure Pulse Oximetry 97 Oxygen Delivery Method MDM - Male Genitourinary <Mateusz Milton MD - Last Filed: 07/17/22 07:33> Lab Data Result diagrams: 07/02/22 10:15 07/02/22 05:15 Labs: Lab Results 07/02/22 07/02/22 07/02/22 Range/Units 05:04 05:15 05:15 WBC 5.7 (4.5-11.0) X10^3/uL RBC 3.45 L (4.5-5.9) X10^6/uL Hgb 11.7 L (13.5-17.5) g/dL Hct 33.2 L (41-53) % MCV 96.2 (80-100) fL MCH 33.9 (26-34) PG MCHC 35.2 (30-36) % RDW 13.4 (11.6-14.8) % Plt Count 206 (150-400) X10^3/uL Neut % (Auto) 61.8 (50-75) % Lymph % (Auto) 21.9 L (25-40) % [place] % (Auto) 10.7 (3-14) % Eos % (Auto) 3.9 (2-4) % Baso % (Auto) 1.7 (0-2) % Neut # (Auto) 3500 (2110-5149) /uL Lymph # (Auto) 1300 (6069-1088) /uL [place] # (Auto) 600 (0-900) /uL Eos # (Auto) 200 (0-450) /uL Baso # (Auto) 100 (0-100) /uL Sodium 138 (137-145) mmol/L Potassium 4.2 (3.4-5.1) mmol/L Chloride 107 (98-107) mmol/L Carbon Dioxide 16 L (22-32) mmol/L BUN 12 (9-20) mg/dL Creatinine 0.71 (0.66-1.25) mg/dL Estimated GFR > 60 (>60) mL/min BUN/Creatinine Ratio 16.9 (6-22) Glucose 132 H (70-100) mg/dL Calcium 9.5 (8.4-10.2) mg/dL Urine Color Red Urine Appearance Slightly cloudy Urine pH 7.5 (4.5-8.0) Ur Specific [place] <=1.005 (1.000-1.035) Urine Protein 3+ H (Negative) Urine Glucose (UA) Trace H (Negative) g/dL Urine Ketones 1+ H (NEGATIVE) Urine Occult Blood 3+ H (Negative) Urine Nitrate Positive H (Negative) Urine Bilirubin Negative (NEGATIVE) Urine Urobilinogen 2.0 H (0.2) E.U./dL Ur Leukocyte Esterase 2+ H (NEGATIVE) Urine RBC >100/hpf H (0-5/HPF) Urine WBC 1-5/hpf (0-5/HPF) Ur Squamous Epith Cells 0-1 /hpf (0-5/HPF) Urine Bacteria Occasional (0-1) (None) Ur Culture Indicated? Specimen cultured 07/02/22 Range/Units 10:15 WBC (4.5-11.0) X10^3/uL RBC (4.5-5.9) X10^6/uL Hgb 11.3 L (13.5-17.5) g/dL Hct 32.1 L (41-53) % MCV (80-100) fL MCH (26-34) PG MCHC (30-36) % RDW (11.6-14.8) % Plt Count (150-400) X10^3/uL Neut % (Auto) (50-75) % Lymph % (Auto) (25-40) % [place] % (Auto) (3-14) % Eos % (Auto) (2-4) % Baso % (Auto) (0-2) % Neut # (Auto) (9419-0197) /uL Lymph # (Auto) (0213-5816) /uL [place] # (Auto) (0-900) /uL Eos # (Auto) (0-450) /uL Baso # (Auto) (0-100) /uL Sodium (137-145) mmol/L Potassium (3.4-5.1) mmol/L Chloride (98-107) mmol/L Carbon Dioxide (22-32) mmol/L BUN (9-20) mg/dL Creatinine (0.66-1.25) mg/dL Estimated GFR (>60) mL/min BUN/Creatinine Ratio (6-22) Glucose (70-100) mg/dL Calcium (8.4-10.2) mg/dL Urine Color Urine Appearance Urine pH (4.5-8.0) Ur Specific [place] (1.000-1.035) Urine Protein (Negative) Urine Glucose (UA) (Negative) g/dL Urine Ketones (NEGATIVE) Urine Occult Blood (Negative) Urine Nitrate (Negative) Urine Bilirubin (NEGATIVE) Urine Urobilinogen (0.2) E.U./dL Ur Leukocyte Esterase (NEGATIVE) Urine RBC (0-5/HPF) Urine WBC (0-5/HPF) Ur Squamous Epith Cells (0-5/HPF) Urine Bacteria (None) Ur Culture Indicated? <Praveen Acharya, DO - Last Filed: 07/04/22 11:34> Lab Data Labs: Lab Results 07/02/22 07/02/22 07/02/22 Range/Units 05:04 05:15 05:15 WBC 5.7 (4.5-11.0) X10^3/uL RBC 3.45 L (4.5-5.9) X10^6/uL Hgb 11.7 L (13.5-17.5) g/dL Hct 33.2 L (41-53) % MCV 96.2 (80-100) fL MCH 33.9 (26-34) PG MCHC 35.2 (30-36) % RDW 13.4 (11.6-14.8) % Plt Count 206 (150-400) X10^3/uL Neut % (Auto) 61.8 (50-75) % Lymph % (Auto) 21.9 L (25-40) % [place] % (Auto) 10.7 (3-14) % Eos % (Auto) 3.9 (2-4) % Baso % (Auto) 1.7 (0-2) % Neut # (Auto) 3500 (1104-6878) /uL Lymph # (Auto) 1300 (9034-3344) /uL [place] # (Auto) 600 (0-900) /uL Eos # (Auto) 200 (0-450) /uL Baso # (Auto) 100 (0-100) /uL Sodium 138 (137-145) mmol/L Potassium 4.2 (3.4-5.1) mmol/L Chloride 107 (98-107) mmol/L Carbon Dioxide 16 L (22-32) mmol/L BUN 12 (9-20) mg/dL Creatinine 0.71 (0.66-1.25) mg/dL Estimated GFR > 60 (>60) mL/min BUN/Creatinine Ratio 16.9 (6-22) Glucose 132 H (70-100) mg/dL Calcium 9.5 (8.4-10.2) mg/dL Urine Color Red Urine Appearance Slightly cloudy Urine pH 7.5 (4.5-8.0) Ur Specific [place] <=1.005 (1.000-1.035) Urine Protein 3+ H (Negative) Urine Glucose (UA) Trace H (Negative) g/dL Urine Ketones 1+ H (NEGATIVE) Urine Occult Blood 3+ H (Negative) Urine Nitrate Positive H (Negative) Urine Bilirubin Negative (NEGATIVE) Urine Urobilinogen 2.0 H (0.2) E.U./dL Ur Leukocyte Esterase 2+ H (NEGATIVE) Urine RBC >100/hpf H (0-5/HPF) Urine WBC 1-5/hpf (0-5/HPF) Ur Squamous Epith Cells 0-1 /hpf (0-5/HPF) Urine Bacteria Occasional (0-1) (None) Ur Culture Indicated? Specimen cultured 07/02/22 Range/Units 10:15 WBC (4.5-11.0) X10^3/uL RBC (4.5-5.9) X10^6/uL Hgb 11.3 L (13.5-17.5) g/dL Hct 32.1 L (41-53) % MCV (80-100) fL MCH (26-34) PG MCHC (30-36) % RDW (11.6-14.8) % Plt Count (150-400) X10^3/uL Neut % (Auto) (50-75) % Lymph % (Auto) (25-40) % [place] % (Auto) (3-14) % Eos % (Auto) (2-4) % Baso % (Auto) (0-2) % Neut # (Auto) (8665-0592) /uL Lymph # (Auto) (1652-0239) /uL [place] # (Auto) (0-900) /uL Eos # (Auto) (0-450) /uL Baso # (Auto) (0-100) /uL Sodium (137-145) mmol/L Potassium (3.4-5.1) mmol/L Chloride (98-107) mmol/L Carbon Dioxide (22-32) mmol/L BUN (9-20) mg/dL Creatinine (0.66-1.25) mg/dL Estimated GFR (>60) mL/min BUN/Creatinine Ratio (6-22) Glucose (70-100) mg/dL Calcium (8.4-10.2) mg/dL Urine Color Urine Appearance Urine pH (4.5-8.0) Ur Specific [place] (1.000-1.035) Urine Protein (Negative) Urine Glucose (UA) (Negative) g/dL Urine Ketones (NEGATIVE) Urine Occult Blood (Negative) Urine Nitrate (Negative) Urine Bilirubin (NEGATIVE) Urine Urobilinogen (0.2) E.U./dL Ur Leukocyte Esterase (NEGATIVE) Urine RBC (0-5/HPF) Urine WBC (0-5/HPF) Ur Squamous Epith Cells (0-5/HPF) Urine Bacteria (None) Ur Culture Indicated? MDM Narrative Medical decision making narrative: Patient has been irrigated with multiple L of sterile water, he is now clear, having no pain, repeat H&H is stable. Vitals remained stable. He is having no pain, tolerating orals. Catheter will be removed per Dr. Lanier recommendation, he will contact urology office tomorrow and follow-up closely. He has been given return precautions and questions answered to his apparent satisfaction Discharge Plan Departure Patient Disposition: Home Clinical Impression: Gross hematuria, Cystitis, Gastroesophageal reflux disease Instructions: DI for Hematuria Activity Restrictions/Additional Instructions: *You have been diagnosed with [hematuria] *What to do: *Please continue to take your regular medications as directed. [ ] New medication prescriptions sent to your pharmacy: [ ] [ ] New medication written as a paper prescription [ x] No new medications given *Please follow up with your urologist this week, call tomorrow for an appointment. Let them know you were seen in the Emergency Department and that we ask that you be seen in follow up. We will electronically transmit a record of today's note if your PCP is in our system *Return to Emergency Department if you should have any new, worsening or concerning symptoms, such as [fever greater than 101 F, shaking chills, worsening pain, persistent vomiting or other bothersome symptoms] Prescriptions: No Action Lantus Solostar U-100 Insulin 100 unit/mL (3 mL) insulin pen 40 unit SUBCUT QPM Qty: 36 3RF metformin 1,000 mg tablet 1,000 mg PO BID Qty: 180 3RF omeprazole 20 mg capsule,delayed release(DR/EC) 20 mg PO Q DAY Qty: 90 3RF olopatadine 0.1 % drops See Rx Instructions .ROUTE .COMPLEX Qty: 25 2RF Dose Instruction: Place 1 drop in each eye twice daily Rx Instructions: Place 1 drop in each eye twice daily fluticasone propionate [Flonase Allergy Relief] 50 mcg/actuation spray,suspension 2 spray intranasal DAILY Qty: 48 1RF Rx Instructions: administer into each nostril Pt needs appt w/provider for further refills. amlodipine 10 mg tablet 10 mg PO DAILY Rx Instructions: Morning hydrochlorothiazide 25 mg tablet 25 mg PO DAILY losartan 100 mg tablet 100 mg PO DAILY Rx Instructions: evening megestrol 20 mg tablet 20 mg PO BID Rx Instructions: Take 1 tablet by mouth twice daily oxybutynin chloride [Ditropan XL] 5 mg tablet extended release 24hr 5 mg PO DAILY Qty: 90 3RF Trulicity 1.5 mg/0.5 mL Pen Injector 1.5 mg SUBCUT QWEEK Prolia 60 mg/mL syringe 60 mg SUBCUT [id number] Qty: 1 0RF Referrals: Patricia Wong MD [Physician] - Damaso Houston DO [Primary Care Provider] - Visit Report Forms: Patient Portal/API
[2022-07-02 05:16] LABS: Appearance Urine UA Slightly Cloudy
[2022-07-02 05:17] LABS: Bacteria Urine Occasional (0-1); Culture Indicated Urine Specimen Cultured; RBC Urine >100/HPF (0-5/HPF); Squamous Epithelial Cell Urine 0-1 /HPF (0-5/HPF); WBC Urine 1-5/HPF (0-5/HPF)
--- NOTE | 2022-07-02 05:56 | PC.NURSE ---
IV placement attempted x 3; was able to obtain blood for labs but no IV. Pt given water to drink, using restroom frequently.
[2022-07-02 06:11] LABS: Add Manual Diff / Slide Review NO; Basophils Absolute Auto 100 /uL (0-100); Basophils Percent Auto 1.7 % (0-2); Eosinophils Absolute Auto 200 /uL (0-450); Eosinophils Percent Auto 3.9 % (2-4); Hematocrit 33.2 % (41-53); Hemoglobin 11.7 g/dL (13.5-17.5); Lymphocytes Absolute Auto 1300 /uL (1100-4500); Lymphocytes Percent Auto 21.9 % (25-40); Mean Corpuscular HGB Conc 35.2 % (30-36); Mean Corpuscular Hemoglobin 33.9 PG (26-34); Mean Corpuscular Volume 96.2 fL (80-100); Monocytes Absolute Auto 600 /uL (0-900); Monocytes Percent Auto 10.7 % (3-14); Neutrophils Absolute Auto 3500 /uL (1500-7000); Neutrophils Percent Auto 61.8 % (50-75); Platelet Count 206 X10^3/uL (150-400); Red Blood Cell Count 3.45 X10^6/uL (4.5-5.9); Red Cell Distribution Width 13.4 % (11.6-14.8); White Blood Cell Count 5.7 X10^3/uL (4.5-11.0)
[2022-07-02 06:22] LABS: BUN Creatinine Ratio 16.9 (6-22); Blood Urea Nitrogen 12 mg/dL (9-20); Calcium 9.5 mg/dL (8.4-10.2); Carbon Dioxide 16 mmol/L (22-32); Chloride 107 mmol/L (98-107); Estimated Glomerular Filt Rate > 60 mL/min (>60); Glucose 132 mg/dL (70-100); HEMOLYSIS 26 (0-50); Potassium 4.2 mmol/L (3.4-5.1); Sodium 138 mmol/L (137-145)
[2022-07-02 07:56] VITALS: BP 171/84; O2SAT 97
[2022-07-02 08:00] VITALS: PULSE 101; O2SAT 99
[2022-07-02 10:28] LABS: Hematocrit 32.1 % (41-53); Hemoglobin 11.3 g/dL (13.5-17.5)
[2022-07-02] MEDS: LIDOCAINE 2% (GLYDO) 6 ML GEL TOP (12:18)
[2022-07-02 13:10] VITALS: BP 140/76; PULSE 77; O2SAT 96
== END 2022-07-02 13:19 | disposition home or self-care (01) ==
PROVIDERS: Family Medicine Addiction Medicine; Emergency Provider Emergency Medicine; PCP Family Medicine
DX: N30.91 Cystitis, unspecified with hematuria (principal); K21.9 Gastro-esophageal reflux disease without esophagitis; C61 Malignant neoplasm of prostate
CPT/HCPCS: 36415; 80048; 81001; 85014; 85018; 85025; 87086

== ENCOUNTER 2022-07-02 14:29 | Emergency (ER) | payer OTHER, SELFPAY ==
[2022-07-02 14:42] VITALS: BP 141/87; PULSE 98; RESP 20; TEMP 36.8; O2SAT 100
== END 2022-07-02 18:18 | disposition left against medical advice (07) ==
PROVIDERS: Emergency Provider Emergency Medicine; PCP Family Medicine
CPT/HCPCS: 99281

== ENCOUNTER 2022-07-02 21:22 | Inpatient (IN) | payer OTHER, SELFPAY ==
[2022-07-02 21:33] VITALS: BP 138/89; PULSE 108; RESP 24; TEMP 36.7; O2SAT 98
[2022-07-02 23:00] VITALS: BP 146/81; PULSE 85; RESP 18; O2SAT 97
[2022-07-02 23:03] LABS: COVID19 -Nasal RAPID Negative (Negative)
[2022-07-02 23:16] LABS: Appearance Urine UA SL CLOUDY; Bilirubin Urine UA NEGATIVE (NEGATIVE); Color Urine UA RED; Glucose Urine UA NEGATIVE (Negative); Ketones Urine UA NEGATIVE (NEGATIVE); Leukocyte Esterase Urine UA TRACE (NEGATIVE); Nitrite Urine UA NEGATIVE (Negative); Occult Blood Urine UA 3+ (Negative); Protein Urine UA 3+ (Negative); Specific Gravity Urine UA 1.015 (1.000-1.035); Urobilinogen Urine UA 0.2 E.U./dL (0.2); pH Urine UA 6.5 (4.5-8.0)
[2022-07-02 23:18] LABS: Bacteria Urine None Seen; RBC Urine >100/HPF (0-5/HPF); WBC Urine 0-1/HPF (0-5/HPF)
[2022-07-02 23:19] LABS: Culture Indicated Urine Specimen Cultured
[2022-07-03] VITALS (12 sets, daily range): BP systolic 135–160; BP diastolic 79–90; PULSE 69–97; RESP 16–18; TEMP 36.6; O2SAT 95–99; BMI 30.4
[2022-07-03 00:16] LABS: Add Manual Diff / Slide Review NO; Basophils Absolute Auto 0 /uL (0-100); Basophils Percent Auto 0.6 % (0-2); Eosinophils Absolute Auto 100 /uL (0-450); Eosinophils Percent Auto 1.6 % (2-4); Hemoglobin 11.3 g/dL (13.5-17.5); Lymphocytes Absolute Auto 1000 /uL (1100-4500); Lymphocytes Percent Auto 13.7 % (25-40); Mean Corpuscular HGB Conc 35.2 % (30-36); Mean Corpuscular Hemoglobin 34.1 PG (26-34); Mean Corpuscular Volume 96.9 fL (80-100); Monocytes Absolute Auto 700 /uL (0-900); Monocytes Percent Auto 9.6 % (3-14); Neutrophils Absolute Auto 5500 /uL (1500-7000); Neutrophils Percent Auto 74.5 % (50-75); Platelet Count 215 X10^3/uL (150-400); Red Cell Distribution Width 13.6 % (11.6-14.8); White Blood Cell Count 7.4 X10^3/uL (4.5-11.0)
[2022-07-03 00:20] LABS: BUN Creatinine Ratio 22.2 (6-22); Blood Urea Nitrogen 16 mg/dL (9-20); Calcium 9.2 mg/dL (8.4-10.2); Carbon Dioxide 20 mmol/L (22-32); Chloride 104 mmol/L (98-107); Estimated Glomerular Filt Rate > 60 mL/min (>60); Glucose 127 mg/dL (70-100); HEMOLYSIS 17 (0-50); Potassium 3.8 mmol/L (3.4-5.1); Sodium 136 mmol/L (137-145)
--- NOTE | 2022-07-03 01:07 | ED.GENADULT ---
HPI - General Adult <Dhara Samaniego MD - Last Filed: 07/03/22 21:43> General Chief complaint: Urogenital-Male Stated complaint: URINARY ISSUE FLARE UP Time Seen by Provider: 07/03/22 00:09 Source: patient Mode of arrival: Ambulatory History of Present Illness HPI narrative: 57-year-old gentleman with a history of hypertension, prostate cancer treated with radiation, developing radiation cystitis and bladder neck stricture that was surgically treated approximately a month ago. He has been home cathing twice daily and noted a fair amount of bleeding with the initial catheterization is post procedure but that seemed to resolve. Over the last couple of days he has had increasing bleeding and was seen in the emergency department on 07/02 and underwent catheterization, bladder irrigation with sterile water with eventual complete clearance of a blood, catheter was removed after discussion with Urology. Patient was to follow-up with Dr. Wong. Describes no fevers, chest pain, palpitations, headaches, myalgias. Once the Hoffman was placed and there were no obstructing clots he has had no abdominal pain or flank pain. Related Data Home Medications Medication Instructions Recorded Confirmed amlodipine 10 mg tablet 10 mg PO DAILY 07/23/20 07/03/22 hydrochlorothiazide 25 mg tablet 25 mg PO DAILY 07/23/20 07/03/22 losartan 100 mg tablet 100 mg PO DAILY 07/23/20 07/03/22 dulaglutide 1.5 mg/0.5 mL 1.5 mg SUBCUT QWEEK 06/09/22 07/03/22 subcutaneous pen injector (Trulicity) megestrol 20 mg tablet 20 mg PO BID 07/03/22 07/03/22 Previous Rx's Medication Instructions Recorded denosumab 60 mg/mL subcutaneous 60 mg SUBCUT [id number] #1 mL 08/16/20 syringe (Prolia) insulin glargine 100 unit/mL (3 40 unit (0.4 mL) SUBCUT QPM #36 mL 11/10/21 mL) subcutaneous pen (Lantus Solostar U-100 Insulin) metformin 1,000 mg tablet 1,000 mg PO BID #180 tabs 03/06/22 olopatadine 0.1 % eye drops See Rx Instructions .Route 03/06/22 .COMPLEX #25 mL omeprazole 20 mg capsule,delayed 20 mg PO Q DAY #90 caps 03/06/22 release fluticasone propionate 50 2 spray intranasal DAILY #48 mL 03/21/22 mcg/actuation nasal spray,suspension (Flonase Allergy Relief) Allergies Allergy/AdvReac Type Severity Reaction Status Date / Time lisinopril Allergy Mild cough Verified 06/09/22 07:48 Review of Systems <Dhara Samaniego MD - Last Filed: 07/03/22 21:43> Review of Systems Narrative: Remainder of complete review of systems is otherwise unremarkable except for that included in the HPI. Patient History <Dhara Samaniego MD - Last Filed: 07/03/22 21:43> Medical History Acquired contracture of bladder neck Diabetes mellitus with insulin therapy Elevated PSA Erectile dysfunction GERD (gastroesophageal reflux disease) Glucosuria Gross hematuria Hyperglycemia Hypertension Prostate cancer Prostate cancer Radiation cystitis Seasonal allergic rhinitis Surgical History H/O prostate biopsy H/O prostatectomy Status post appendectomy Family History Father Hypertension Mother Alzheimer's dementia Social History household members: spouse Smoking Status: Never smoker alcohol intake: current Smoking Status: Never smoker alcohol intake frequency: 3 or more drinks per day Substance Use Type: does not use Exam <Dhara Samaniego MD - Last Filed: 07/03/22 21:43> Initial Vital Signs Initial Vital Signs: Vital Signs Temperature 98.1 F 07/02/22 21:33 Pulse Rate 108 H 07/02/22 21:33 Respiratory Rate 24 07/02/22 21:33 Blood Pressure 138/89 07/02/22 21:33 Pulse Oximetry 98 07/02/22 21:33 Oxygen Delivery Method 07/02/22 21:33 General: Healthy appearing, in no acute distress. Able to give a complete and coherent history. Well-nourished well-developed HEENT: Moist mucous membranes, normal sclera with reactive pupils, Respiratory: Lungs are clear to auscultation, no wheezing no rales no rhonchi. Full and symmetrical air movement Cardiac: Regular rate and rhythm no murmurs no bruits Abdomen: Soft, nontender, good bowel tones, no flank pain Skin: Warm and dry, no rashes Neurologic: Grossly neurologically intact with no obvious asymmetries or abnormalities Extremities: No trauma, well perfused Psych: Cooperative, appropriate insight and affect Three way Hoffman catheter is placed and continues to drain pink urine with small clots. Minor clots were initially removed with irrigation. Patient is comfortable with catheter in place currently. <Praveen Acharya DO - Last Filed: 07/04/22 13:17> Initial Vital Signs Initial Vital Signs: Vital Signs Temperature 98.1 F 07/02/22 21:33 Pulse Rate 108 H 07/02/22 21:33 Respiratory Rate 24 07/02/22 21:33 Blood Pressure 138/89 07/02/22 21:33 Pulse Oximetry 98 07/02/22 21:33 Oxygen Delivery Method 07/02/22 21:33 Course <Dhara Samaniego MD - Last Filed: 07/03/22 21:43> Orders Ordered: Amlodipine Besylate (Amlodipine 5 Mg Tablet) 10 mg PO DAILY [facility] Last Admin: 07/04/22 09:45 Dose: 10 mg Documented By: ALANIS Hydrochlorothiazide (Hydrochlorothiazide 25 Mg Tablet) 25 mg PO DAILY [facility] Last Admin: 07/04/22 09:45 Dose: 25 mg Documented By: ALANIS Insulin Glargine (Insulin Glargine 100 Unit/Ml 3ml Pen) 40 unit SUBCUT QPM [facility] Losartan Potassium (Losartan 50 Mg Tablet) 100 mg PO DAILY [facility] Last Admin: 07/04/22 09:45 Dose: 100 mg Documented By: ALANIS Metformin HCl (Metformin Hcl 500 Mg Tablet) 1,000 mg PO BID [facility] Last Admin: 07/04/22 09:45 Dose: 1,000 mg Documented By: Admin: 07/03/22 22:11 Dose: 1,000 mg Documented By: ASIF Discontinued Medications Amlodipine Besylate (Amlodipine 5 Mg Tablet) 10 mg PO NOW ONE Stop: 07/03/22 15:25 Last Admin: 07/03/22 16:19 Dose: 10 mg Documented By: RADHA Fluticasone Propionate (Fluticasone 120 [place]/16 Gm [place].Susp) 1 spray NASAL NOW ONE Stop: 07/03/22 15:27 Last Admin: 07/03/22 16:19 Dose: 1 spray Documented By: RADHA Tranexamic Acid 1,000 mg/ (Sodium Chloride) 100 mls @ 200 mls/hr IV NOW ONE Stop: 07/03/22 11:37 Last Infusion: 07/03/22 12:01 Dose: 0 mls/hr Documented By: Admin: 07/03/22 11:54 Dose: 200 mls/hr Documented By: RADHA Tranexamic Acid 1,000 mg/ (Sodium Chloride) 100 mls @ 200 mls/hr IV NOW ONE Stop: 07/03/22 13:29 Last Infusion: 07/03/22 13:55 Dose: 0 mls/hr Documented By: Admin: 07/03/22 13:05 Dose: 200 mls/hr Documented By: RADHA Insulin Glargine (Insulin Glargine 100 Unit/Ml 3ml Pen) 22 unit SUBCUT DAILY [facility] Last Admin: 07/03/22 18:09 Dose: 22 unit Documented By: RADHA Co-signed By: GERHARD Ketorolac Tromethamine (Ketorolac 30 Mg/Ml Vial) 15 mg IV NOW ONE Stop: 07/03/22 02:08 Last Admin: 07/03/22 02:25 Dose: 15 mg Documented By: CHON Ketorolac Tromethamine (Ketorolac 30 Mg/Ml Vial) 15 mg IV NOW ONE Stop: 07/03/22 09:28 Last Admin: 07/03/22 09:32 Dose: 15 mg Documented By: RADHA Losartan Potassium (Losartan 50 Mg Tablet) 100 mg PO NOW ONE Stop: 07/03/22 15:24 Last Admin: 07/03/22 16:19 Dose: 100 mg Documented By: RADHA Megestrol Acetate (Megestrol 20 Mg Tablet) 20 mg PO NOW ONE Stop: 07/03/22 15:25 Last Admin: 07/03/22 16:20 Dose: 20 mg Documented By: RADHA Metformin HCl (Metformin Hcl 500 Mg Tablet) 1,000 mg PO 0800,1700 [facility] Last Admin: 07/03/22 16:19 Dose: 1,000 mg Documented By: RADHA Vital Signs Vital signs: Vital Signs - 8 hr 07/03/22 19:36 Pulse Rate 86 Respiratory Rate 18 Blood Pressure 142/79 H Pulse Oximetry 97 Oxygen Delivery Method Room Air <Praveen [place], DO - Last Filed: 07/04/22 13:17> Orders Ordered: Amlodipine Besylate (Amlodipine 5 Mg Tablet) 10 mg PO DAILY [facility] Last Admin: 07/04/22 09:45 Dose: 10 mg Documented By: ALANIS Hydrochlorothiazide (Hydrochlorothiazide 25 Mg Tablet) 25 mg PO DAILY [facility] Last Admin: 07/04/22 09:45 Dose: 25 mg Documented By: ALANIS Insulin Glargine (Insulin Glargine 100 Unit/Ml 3ml Pen) 40 unit SUBCUT QPM [facility] Losartan Potassium (Losartan 50 Mg Tablet) 100 mg PO DAILY [facility] Last Admin: 07/04/22 09:45 Dose: 100 mg Documented By: ALANIS Metformin HCl (Metformin Hcl 500 Mg Tablet) 1,000 mg PO BID [facility] Last Admin: 07/04/22 09:45 Dose: 1,000 mg Documented By: Admin: 07/03/22 22:11 Dose: 1,000 mg Documented By: ASIF Discontinued Medications Amlodipine Besylate (Amlodipine 5 Mg Tablet) 10 mg PO NOW ONE Stop: 07/03/22 15:25 Last Admin: 07/03/22 16:19 Dose: 10 mg Documented By: RADHA Fluticasone Propionate (Fluticasone 120 [place]/16 Gm [place].Susp) 1 spray NASAL NOW ONE Stop: 07/03/22 15:27 Last Admin: 07/03/22 16:19 Dose: 1 spray Documented By: RADHA Tranexamic Acid 1,000 mg/ (Sodium Chloride) 100 mls @ 200 mls/hr IV NOW ONE Stop: 07/03/22 11:37 Last Infusion: 07/03/22 12:01 Dose: 0 mls/hr Documented By: Admin: 07/03/22 11:54 Dose: 200 mls/hr Documented By: RADHA Tranexamic Acid 1,000 mg/ (Sodium Chloride) 100 mls @ 200 mls/hr IV NOW ONE Stop: 07/03/22 13:29 Last Infusion: 07/03/22 13:55 Dose: 0 mls/hr Documented By: Admin: 07/03/22 13:05 Dose: 200 mls/hr Documented By: RADHA Insulin Glargine (Insulin Glargine 100 Unit/Ml 3ml Pen) 22 unit SUBCUT DAILY [facility] Last Admin: 07/03/22 18:09 Dose: 22 unit Documented By: RADHA Co-signed By: GERHARD Ketorolac Tromethamine (Ketorolac 30 Mg/Ml Vial) 15 mg IV NOW ONE Stop: 07/03/22 02:08 Last Admin: 07/03/22 02:25 Dose: 15 mg Documented By: CHON Ketorolac Tromethamine (Ketorolac 30 Mg/Ml Vial) 15 mg IV NOW ONE Stop: 07/03/22 09:28 Last Admin: 07/03/22 09:32 Dose: 15 mg Documented By: RADHA Losartan Potassium (Losartan 50 Mg Tablet) 100 mg PO NOW ONE Stop: 07/03/22 15:24 Last Admin: 07/03/22 16:19 Dose: 100 mg Documented By: RADHA Megestrol Acetate (Megestrol 20 Mg Tablet) 20 mg PO NOW ONE Stop: 07/03/22 15:25 Last Admin: 07/03/22 16:20 Dose: 20 mg Documented By: RADHA Metformin HCl (Metformin Hcl 500 Mg Tablet) 1,000 mg PO 0800,1700 [facility] Last Admin: 07/03/22 16:19 Dose: 1,000 mg Documented By: RADHA Vital Signs Vital signs: Vital Signs - 8 hr 07/03/22 19:36 Pulse Rate 86 Respiratory Rate 18 Blood Pressure 142/79 H Pulse Oximetry 97 Oxygen Delivery Method Room Air Medical Decision Making <Dhara Samaniego MD - Last Filed: 07/03/22 21:43> Lab Data Result diagrams: 07/03/22 07:21 07/02/22 22:35 Labs: Lab Results 07/02/22 07/02/22 07/02/22 Range/Units 22:35 22:35 22:35 WBC 7.4 (4.5-11.0) X10^3/uL RBC 3.30 L (4.5-5.9) X10^6/uL Hgb 11.3 L (13.5-17.5) g/dL Hct 32.0 L (41-53) % MCV 96.9 (80-100) fL MCH 34.1 H (26-34) PG MCHC 35.2 (30-36) % RDW 13.6 (11.6-14.8) % Plt Count 215 (150-400) X10^3/uL Neut % (Auto) 74.5 (50-75) % Lymph % (Auto) 13.7 L (25-40) % [place] % (Auto) 9.6 (3-14) % Eos % (Auto) 1.6 L (2-4) % Baso % (Auto) 0.6 (0-2) % Neut # (Auto) 5500 (3864-2775) /uL Lymph # (Auto) 1000 L (6398-9908) /uL [place] # (Auto) 700 (0-900) /uL Eos # (Auto) 100 (0-450) /uL Baso # (Auto) 0 (0-100) /uL Sodium 136 L (137-145) mmol/L Potassium 3.8 (3.4-5.1) mmol/L Chloride 104 (98-107) mmol/L Carbon Dioxide 20 L (22-32) mmol/L BUN 16 (9-20) mg/dL Creatinine 0.72 (0.66-1.25) mg/dL Estimated GFR > 60 (>60) mL/min BUN/Creatinine Ratio 22.2 H (6-22) Glucose 127 H (70-100) mg/dL Calcium 9.2 (8.4-10.2) mg/dL Urine Color Urine Appearance Urine pH (4.5-8.0) Ur Specific [place] (1.000-1.035) Urine Protein (Negative) Urine Glucose (UA) (Negative) g/dL Urine Ketones (NEGATIVE) Urine Occult Blood (Negative) Urine Nitrate (Negative) Urine Bilirubin (NEGATIVE) Urine Urobilinogen (0.2) E.U./dL Ur Leukocyte Esterase (NEGATIVE) Urine RBC (0-5/HPF) Urine WBC (0-5/HPF) Urine Bacteria (None) Ur Culture Indicated? SARS-CoV-2 (PCR) Negative (Negative) 07/02/22 07/03/22 Range/Units 23:00 07:21 WBC 7.5 (4.5-11.0) X10^3/uL RBC 3.16 L (4.5-5.9) X10^6/uL Hgb 10.7 L (13.5-17.5) g/dL Hct 30.5 L (41-53) % MCV 96.5 (80-100) fL MCH 33.9 (26-34) PG MCHC 35.1 (30-36) % RDW 13.4 (11.6-14.8) % Plt Count 202 (150-400) X10^3/uL Neut % (Auto) 76.4 H (50-75) % Lymph % (Auto) 11.9 L (25-40) % [place] % (Auto) 8.9 (3-14) % Eos % (Auto) 2.2 (2-4) % Baso % (Auto) 0.6 (0-2) % Neut # (Auto) 5800 (7486-3552) /uL Lymph # (Auto) 900 L (7765-1456) /uL [place] # (Auto) 700 (0-900) /uL Eos # (Auto) 200 (0-450) /uL Baso # (Auto) 0 (0-100) /uL Sodium (137-145) mmol/L Potassium (3.4-5.1) mmol/L Chloride (98-107) mmol/L Carbon Dioxide (22-32) mmol/L BUN (9-20) mg/dL Creatinine (0.66-1.25) mg/dL Estimated GFR (>60) mL/min BUN/Creatinine Ratio (6-22) Glucose (70-100) mg/dL Calcium (8.4-10.2) mg/dL Urine Color Red Urine Appearance Sl cloudy Urine pH 6.5 (4.5-8.0) Ur Specific [place] 1.015 (1.000-1.035) Urine Protein 3+ H (Negative) Urine Glucose (UA) Negative (Negative) g/dL Urine Ketones Negative (NEGATIVE) Urine Occult Blood 3+ H (Negative) Urine Nitrate Negative (Negative) Urine Bilirubin Negative (NEGATIVE) Urine Urobilinogen 0.2 (0.2) E.U./dL Ur Leukocyte Esterase Trace H (NEGATIVE) Urine RBC >100/hpf H (0-5/HPF) Urine WBC 0-1/hpf (0-5/HPF) Urine Bacteria None seen (None) Ur Culture Indicated? Specimen cultured SARS-CoV-2 (PCR) (Negative) MDM Narrative Medical decision making narrative: 57-year-old gentleman with urinary bladder neck stricture post surgical intervention approximately 3 weeks ago, Hoffman catheter left in place for approximately week. Was removed and he had a small amount of bleeding that seemed to resolve. He had been doing self-catheterizations b.i.d. and seem to be doing well. Beginning the evening of the had increasing bleeding and clots. He was seen in the emergency department 5:00 a.m. on the with Hoffman catheter placed, bladder irrigated, after urine returned clear for a period of time in discussion with Dr. Wong, the catheter was removed. Shortly after returning home he again noticed blood in pain. He return to the emergency room during the day Sunday waited for approximately 4 hours but because of significant volumes was not immediately seen. He went home and returned again later this evening. Three-way Hoffman catheter was placed and direct irrigation removed some clots now he is undergoing continuous irrigation with continued pink urine noted. He is pain-free at this time. Care is reviewed with Dr. Gonzalez, urology. He recommended applying gentle traction to the Hoffman catheter to allow the Hoffman balloon to act as a direct compression source to the bladder neck to see if this would help control the bleeding. His recommendation was to discharge the patient home with Hoffman catheter in place and materials to irrigate himself at home. Reviewed this recommendation with the patient who was significantly anxious about this option as he has had continued episodes with bleeding and is concerned that the bleeding may be from some of the varicose sees appreciated over the area of radiation injury to his bladder mucosa rather than simply from the bladder neck after his recent procedure. We did apply some gentle traction to the Hoffman catheter with a slight decrease in over amount of blood noted. He is currently on his 3rd bag of a sterile water irrigation and continues to have moderately dark pink urine. No overt clots or appreciated. He remains pain free. Will complete this 3rd bag of fluid and re-evaluate. 630 am patient is re-evaluated. Minimal pain. Urine has only minimally cleared with significant irrigation and mild Hoffman bulb tamponade applied to the bladder neck. Patient is reluctant to go home with supplies for self irrigation given continue bleeding and known difficulty in getting hold of Dr. Wong via phone calls to the office. His care will be turned over to Dr. Ayala and will contact Dr. Wong at 8:00 a.m. this morning for further guidance. In the meantime will recheck a CBC to see how much blood has actually been lost. h/h from 11.3/32 to 10.7/30.[address] Acharya reviewed care with Dr Jones. Patient will be admitted for continued bladder irrigation and probable hyperbaric oxygen treatment for his continued gross hematuria. <Praveen cAharya, DO - Last Filed: 07/04/22 13:17> Lab Data Labs: Lab Results 07/02/22 07/02/22 07/02/22 Range/Units 22:35 22:35 22:35 WBC 7.4 (4.5-11.0) X10^3/uL RBC 3.30 L (4.5-5.9) X10^6/uL Hgb 11.3 L (13.5-17.5) g/dL Hct 32.0 L (41-53) % MCV 96.9 (80-100) fL MCH 34.1 H (26-34) PG MCHC 35.2 (30-36) % RDW 13.6 (11.6-14.8) % Plt Count 215 (150-400) X10^3/uL Neut % (Auto) 74.5 (50-75) % Lymph % (Auto) 13.7 L (25-40) % [place] % (Auto) 9.6 (3-14) % Eos % (Auto) 1.6 L (2-4) % Baso % (Auto) 0.6 (0-2) % Neut # (Auto) 5500 (1491-5596) /uL Lymph # (Auto) 1000 L (2960-1950) /uL [place] # (Auto) 700 (0-900) /uL Eos # (Auto) 100 (0-450) /uL Baso # (Auto) 0 (0-100) /uL Sodium 136 L (137-145) mmol/L Potassium 3.8 (3.4-5.1) mmol/L Chloride 104 (98-107) mmol/L Carbon Dioxide 20 L (22-32) mmol/L BUN 16 (9-20) mg/dL Creatinine 0.72 (0.66-1.25) mg/dL Estimated GFR > 60 (>60) mL/min BUN/Creatinine Ratio 22.2 H (6-22) Glucose 127 H (70-100) mg/dL Calcium 9.2 (8.4-10.2) mg/dL Urine Color Urine Appearance Urine pH (4.5-8.0) Ur Specific [place] (1.000-1.035) Urine Protein (Negative) Urine Glucose (UA) (Negative) g/dL Urine Ketones (NEGATIVE) Urine Occult Blood (Negative) Urine Nitrate (Negative) Urine Bilirubin (NEGATIVE) Urine Urobilinogen (0.2) E.U./dL Ur Leukocyte Esterase (NEGATIVE) Urine RBC (0-5/HPF) Urine WBC (0-5/HPF) Urine Bacteria (None) Ur Culture Indicated? SARS-CoV-2 (PCR) Negative (Negative) 07/02/22 07/03/22 Range/Units 23:00 07:21 WBC 7.5 (4.5-11.0) X10^3/uL RBC 3.16 L (4.5-5.9) X10^6/uL Hgb 10.7 L (13.5-17.5) g/dL Hct 30.5 L (41-53) % MCV 96.5 (80-100) fL MCH 33.9 (26-34) PG MCHC 35.1 (30-36) % RDW 13.4 (11.6-14.8) % Plt Count 202 (150-400) X10^3/uL Neut % (Auto) 76.4 H (50-75) % Lymph % (Auto) 11.9 L (25-40) % [place] % (Auto) 8.9 (3-14) % Eos % (Auto) 2.2 (2-4) % Baso % (Auto) 0.6 (0-2) % Neut # (Auto) 5800 (5634-5304) /uL Lymph # (Auto) 900 L (2067-6585) /uL [place] # (Auto) 700 (0-900) /uL Eos # (Auto) 200 (0-450) /uL Baso # (Auto) 0 (0-100) /uL Sodium (137-145) mmol/L Potassium (3.4-5.1) mmol/L Chloride (98-107) mmol/L Carbon Dioxide (22-32) mmol/L BUN (9-20) mg/dL Creatinine (0.66-1.25) mg/dL Estimated GFR (>60) mL/min BUN/Creatinine Ratio (6-22) Glucose (70-100) mg/dL Calcium (8.4-10.2) mg/dL Urine Color Red Urine Appearance Sl cloudy Urine pH 6.5 (4.5-8.0) Ur Specific [place] 1.015 (1.000-1.035) Urine Protein 3+ H (Negative) Urine Glucose (UA) Negative (Negative) g/dL Urine Ketones Negative (NEGATIVE) Urine Occult Blood 3+ H (Negative) Urine Nitrate Negative (Negative) Urine Bilirubin Negative (NEGATIVE) Urine Urobilinogen 0.2 (0.2) E.U./dL Ur Leukocyte Esterase Trace H (NEGATIVE) Urine RBC >100/hpf H (0-5/HPF) Urine WBC 0-1/hpf (0-5/HPF) Urine Bacteria None seen (None) Ur Culture Indicated? Specimen cultured SARS-CoV-2 (PCR) (Negative) Discharge Plan Departure Patient Disposition: Admitted as Observation Clinical Impression: Acquired bladder neck obstruction, Gross hematuria Post-operative haemorrhage Qualifiers: Surgical complication system/body Area: genitourinary Procedure type: genitourinary Qualified Code(s): N99.820 - Postprocedural hemorrhage of a genitourinary system organ or structure following a genitourinary system procedure Admit Date/Time: 07/03/22 20:38 Admit Provider: Patricia Wong <Praveen Acharya DO - Last Filed: 07/04/22 13:17> Cosign ED Attending Cosignature Attestation: I was immediately available in the department for consultation. This documentation has been reviewed and I agree with assessment and plan. Supervised by Praveen Acharya DO
[2022-07-03] MEDS: KETOROLAC 30 MG/ML VIAL 15 MG IV ×2 (02:25→09:32)
[2022-07-03 07:28] LABS: Add Manual Diff / Slide Review NO; Basophils Absolute Auto 0 /uL (0-100); Basophils Percent Auto 0.6 % (0-2); Eosinophils Absolute Auto 200 /uL (0-450); Eosinophils Percent Auto 2.2 % (2-4); Hematocrit 30.5 % (41-53); Hemoglobin 10.7 g/dL (13.5-17.5); Lymphocytes Absolute Auto 900 /uL (1100-4500); Lymphocytes Percent Auto 11.9 % (25-40); Mean Corpuscular HGB Conc 35.1 % (30-36); Mean Corpuscular Hemoglobin 33.9 PG (26-34); Mean Corpuscular Volume 96.5 fL (80-100); Monocytes Absolute Auto 700 /uL (0-900); Monocytes Percent Auto 8.9 % (3-14); Neutrophils Absolute Auto 5800 /uL (1500-7000); Neutrophils Percent Auto 76.4 % (50-75); Platelet Count 202 X10^3/uL (150-400); Red Blood Cell Count 3.16 X10^6/uL (4.5-5.9); Red Cell Distribution Width 13.4 % (11.6-14.8); White Blood Cell Count 7.5 X10^3/uL (4.5-11.0)
--- NOTE | 2022-07-03 09:24 | PC.NURSE ---
Pt has CBI with sterile saline. Pt continues to have cranberry colored output with occational blood clots.
--- NOTE | 2022-07-03 11:08 | DI.RAD.S_ITS ---
PROCEDURE: XR CHEST 2V INDICATIONS: pre HBO TECHNIQUE: 2 views of the chest were acquired. COMPARISON: None. FINDINGS: Surgical changes and devices: None. Lungs and pleura: Lungs are clear. No pleural effusions or pneumothorax. Mediastinum: Mediastinal contours are normal. Heart size is normal. Bones and chest wall: No suspicious bony abnormalities. Soft tissues appear unremarkable. IMPRESSION: No evidence acute pulmonary process. Dictated by: Mario Hdez M.D. on 07/03/2022 at 12:00 Approved by: Mario Hdez M.D. on 07/03/2022 at 12:00
[2022-07-03] MEDS: TRANEXAMIC ACID 1,000 MG in SODIUM CHLORIDE 0.9% 100 ML 200 MG IV ×2 (11:54→13:05)
[2022-07-03] MEDS: FLUTICASONE 120 SPRAY/16 GM SPRAY.SUSP NASAL (16:19)
[2022-07-03] MEDS: LOSARTAN 50 MG TABLET 100 MG PO (16:19)
[2022-07-03] MEDS: METFORMIN HCL 500 MG TABLET 1000 MG PO ×2 (16:19→22:11)
[2022-07-03] MEDS: AMLODIPINE 5 MG TABLET 10 MG PO (16:19)
[2022-07-03] MEDS: MEGESTROL 20 MG TABLET PO (16:20)
[2022-07-03] MEDS: INSULIN GLARGINE 100 UNIT/ML 3ML PEN 22 UNIT SUBCUT (18:09)
[2022-07-04 04:01] VITALS: BP 139/85; PULSE 82; RESP 18; TEMP 36.6; O2SAT 96
--- NOTE | 2022-07-04 07:38 | P.HP_ITS ---
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 The patient is status post cystoscopy and visual urethrotomy on 06/09/2022 for treatment of radiation induced bladder neck contracture. Recent endoscopic evaluations have confirmed diagnosis of radiation cystitis. He began having intermittent small bouts of bleeding 2-3 months ago. Evaluation led to the diagnosis of bladder neck contracture for which he underwent cold knife incision last month. The patient presented to [facility] ED on 07/02/2022, with a 2 day complaint of intermittent clot passage. Irrigation catheter was passed and after 2 L of irrigation the bleeding apparently ceased and the outflow was clear. I did not find documentation of any attempts to hand irrigate. ED provider contacted Urology on-call and was instructed to remove the catheter at that point with follow-up directed to contact Urology Clinic on 07/03/2022. However the patient return later in the evening with complaints of recurrent bleeding. The patient was reluctant to be discharged home with indwelling arnulfo ter and was irrigated over the next several hours with gravity CBI. Report was at the outflow would remain relatively clear very light pink when a low drip to moderate drip was applied but would become red again upon discontinuation. The patient remained in the ED apparently until I came sap plant maintenance consultant it 7:00 a.m. 07/03/2022. I was actually contacted by the ED while in the operating room and the patient is seen in between cases. Patient History Medical History Acquired contracture of bladder neck Diabetes mellitus with insulin therapy Elevated PSA Erectile dysfunction GERD (gastroesophageal reflux disease) Glucosuria Gross hematuria Hyperglycemia Hypertension Prostate cancer Prostate cancer Radiation cystitis Seasonal allergic rhinitis Surgical History H/O prostate biopsy H/O prostatectomy Status post appendectomy Family & Social History Family History Father Hypertension Mother Alzheimer's dementia Social History: household members spouse Prior Living Arrangements House Safety & Behavioral: Feels Safe in Current Yes Environment Been Physically Hurt or No Threatened By a Person Tobacco & Substance use: Smoking Status Never smoker alcohol intake current alcohol intake frequency 3 or more drinks per day Substance Use Type does not use Meds Home Medications and Allergies Home Medications Medication Instructions Recorded Confirmed Type amlodipine 10 mg tablet 10 mg PO DAILY 07/23/20 07/03/22 History hydrochlorothiazide 25 mg tablet 25 mg PO DAILY 07/23/20 07/03/22 History losartan 100 mg tablet 100 mg PO DAILY 07/23/20 07/03/22 History denosumab 60 mg/mL subcutaneous 60 mg SUBCUT [id number] #1 mL 08/16/20 07/03/22 Rx syringe (Prolia) insulin glargine 100 unit/mL (3 40 unit (0.4 mL) SUBCUT QPM #36 mL 11/10/21 07/03/22 Rx mL) subcutaneous pen (Lantus Solostar U-100 Insulin) metformin 1,000 mg tablet 1,000 mg PO BID #180 tabs 03/06/22 07/03/22 Rx olopatadine 0.1 % eye drops See Rx Instructions .Route 03/06/22 07/03/22 Rx .COMPLEX #25 mL omeprazole 20 mg capsule,delayed 20 mg PO Q DAY #90 caps 03/06/22 07/03/22 Rx release fluticasone propionate 50 2 spray intranasal DAILY #48 mL 03/21/22 07/03/22 Rx mcg/actuation nasal spray,suspension (Flonase Allergy Relief) dulaglutide 1.5 mg/0.5 mL 1.5 mg SUBCUT QWEEK 06/09/22 07/03/22 History subcutaneous pen injector (Trulicity) megestrol 20 mg tablet 20 mg PO BID 07/03/22 07/03/22 History Allergies Allergy/AdvReac Type Severity Reaction Status Date / Time lisinopril Allergy Mild cough Verified 06/09/22 07:48 Review of Systems Review of Systems ROS: Yes All systems reviewed with the patient and are negative except as otherwise documented Exam Vital Signs (past 8 hours): - 07/04/22 04:01 Temperature 97.9 F Pulse Rate 82 Respiratory Rate 18 Blood Pressure 139/85 Pulse Oximetry 96 Oxygen Flow Rate 0 Oxygen Delivery Method Room Air Oxygen Flow Rate 0 Narrative Exam Narrative: Patient is resting comfortably in bed awake without evidence of distress. Abdomen round and protuberant. No tenderness, rebound, or guarding. Genitalia- indwelling catheter with light pink outflow no visible clots. The catheter is hand irrigated at the bedside with return of perhaps a total of 15 cc of clot debris and flakes. No large volume. It hand irrigated clear and then was placed back to 3 way normal saline CBI. Objective Labs Result Diagrams: 07/03/22 07:21 07/02/22 22:35 Assessment & Plan Assessment & Plan narrative: Assessment: 1. Gross hematuria and clot retention secondary to radiation cystitis. Plan: 1. Urgent referral to wound care center for hyperbaric oxygen therapy. 2. Three-way Hoffman indwelling now on CBI. 3. Hand irrigate as needed to maintain catheter patency. 4. The patient was seen while in the ED by the Wound online advertising director. Appointment has been scheduled urgently 1245 on 07/04/2022. Appropriate referrals and authorization have been put in process/progress. Time Spent With Patient Critical Care time: I spent a total of [] minutes of critical care time on this patient's care today; this time is exclusive of procedural time. Quality VTE Deep Vein Thrombosis/Pulmonary Embolism Present on Admission: No
[2022-07-04 08:02] VITALS: BP 136/87; PULSE 77; RESP 16; TEMP 36.5; O2SAT 96
[2022-07-04] MEDS: LOSARTAN 50 MG TABLET 100 MG PO (09:45)
[2022-07-04] MEDS: METFORMIN HCL 500 MG TABLET 1000 MG PO ×2 (09:45→20:27)
[2022-07-04] MEDS: hydroCHLOROthiazide 25 MG TABLET PO (09:45)
--- NOTE | 2022-07-04 10:56 | CM.DANOTE ---
DCP: Case received, EMR reviewed and met with patient. Introduced self and role. Was able to obtain some information from patient regarding some of his health history, and current situation. DCP assessment completed with information currently available. Patient is a 57 year old male who admitted yesterday morning to the care of the urology team. PCP: Dr. Houston. Payer: confirmed: [facility]. Patient came to the hospital via private vehicle secondary to having some increased bleeding and clots. Patient has history of prostate cancer, and had been treated with radiation. According to patient, this was about 3 years ago. Patient then developed radiation cystitis and bladder neck stricture that was surgically treated about a month ago. Patient has been self-cathing at home as well, and came to the ER secondary to increased bleeding. He had been to the ER on 07/02 and had catheterzation, bladder irrigation with sterile water, with plans to follow up with Dr. Jones. Patient then was admitted for continued bladder irrigation, and probable hyperbaric oxygen treatment for gross hematuria. Met with Rachel from the wound clinic next door who is familiar with this case. It was noted that patient was supposed to have a 12:30 appointment with them regarding hyperbaric treatments. Rachel has already initiated authorization with patient' [facility], since it takes time, and confirmed that this can only be done on an outpatient basis. Dr. Goldberg also needs to fill out paper work before auth can be sent. Appointment was set to go over paper work for auth. Ramos confirmed that this would take some time, and she would update Dr. Jones regarding this needing to be done outpatient, and for insurance auth. Ramos also indicated that patient can't have any bladder irrigations while going through hyperbaric treatment. Met with patient in his room. He is pleasant, alert and oriented. He is frustrated with what he has had to go through, and unsure of what the next step is. At this time, he is here for bladder irrigation. He is independent at his baseline, and resides here in [place] with his spouse, Harini. He is employed with a company that is based in [place]. He is also concerned that he may need to take a medical leave from his work, instead of using all of his vacation. Patient is retired from the [employer]. P: DCP to continue to follow. As indicated, patient will need to have hyperbaric treatments on an outpatient basis once insurance auth is received. He should be able to go home once his bleeding is decreased, and his labs are stable. He most likely will need to go home with catheter. Marcia Maurer RN/Respiratory Director Discharge Planning/Care Management CM Discharge Assessment Start: 07/04/22 10:54 Freq: Status: Active Protocol: Document 07/04/22 10:54 (Rec: 07/04/22 10:56 [id number]) Discharge Planning Assessment Assigned Information Systems Coordinator Marcia Maurer RN/Respiratory Director Advance Directives? No History Provided By Patient,Medical Record Prior Living Arrangements House Household Members spouse Type of transporation used prior to Drives own vehicle admit Independent with ADL's Yes Is patient alert and oriented? Yes Caregiver for Another No Barriers to Discharge Yes Comment Barrier is that patient is passing clots, and blood, and that he has been having problems at home, and needs constant irrigation. Hyperbaric treatment can only happen on outpatient basis, which requires insurance auth after Dr. Maacrio notes are in , which can take some time. Discharge Plan Home Transportation Arrangement Spouse Referrals Initiated None needed Whiteboard Updated in Patient Room with Yes name and ext. # of Information Systems Coordinator Review Status In Process Next Review Type Continued Stay Review
[2022-07-04 12:03] VITALS: BP 132/85; PULSE 95; RESP 18; TEMP 36.4; O2SAT 96
[2022-07-04] MEDS: INSULIN GLARGINE 100 UNIT/ML 3ML PEN 40 UNIT SUBCUT (18:40)
[2022-07-04] MEDS: AMLODIPINE 5 MG TABLET 10 MG PO (20:28)
[2022-07-04 20:30] VITALS: BP 147/87; PULSE 90; RESP 18; TEMP 36.5; O2SAT 98
[2022-07-05 04:00] VITALS: BP 122/77; PULSE 87; RESP 18; TEMP 36.6; O2SAT 99
[2022-07-05 07:50] VITALS: BP 135/79; PULSE 80; RESP 16; TEMP 36.3; O2SAT 98
[2022-07-05 08:52] VITALS: BP 135/79
[2022-07-05] MEDS: METFORMIN HCL 500 MG TABLET 1000 MG PO ×2 (08:52→20:07)
[2022-07-05] MEDS: hydroCHLOROthiazide 25 MG TABLET PO (08:52)
[2022-07-05] MEDS: LOSARTAN 50 MG TABLET 100 MG PO (08:52)
[2022-07-05] MEDS: BISACODYL 10 MG SUPP PR (09:33)
--- NOTE | 2022-07-05 10:46 | PM.PN.1 ---
Subjective Subjective Date Patient Seen: 07/05/22 Time Patient Seen: 07:20 Interval history: Patient is hospitalization day 3 for management of hemorrhagic cystitis. Detail history provided before. No significant interval changes. The patient was not transported to the wound clinic yesterday nor did wound clinic staff conduct initial consultation which was scheduled at 12:45 p.m.. Exam Vital Signs (past 8 hours): - 07/05/22 04:00 07/05/22 07:50 07/05/22 08:52 Temperature 97.9 F 97.3 F L Pulse Rate 87 80 Respiratory Rate 18 16 Blood Pressure 122/77 135/79 135/79 Pulse Oximetry 99 98 Oxygen Flow Rate 0 0 Oxygen Delivery Method Room Air Oxygen Flow Rate 0 Narrative Exam Narrative: The patient is awake alert and in no acute distress resting in bed. Abdomen-round and protuberant. Mildly tender over pubis. No rebound or guarding. Objective Labs Result Diagrams: 07/03/22 07:21 07/02/22 22:35 [facility] Medical History Acquired contracture of bladder neck Diabetes mellitus with insulin therapy Elevated PSA Erectile dysfunction GERD (gastroesophageal reflux disease) Glucosuria Gross hematuria Hyperglycemia Hypertension Prostate cancer Prostate cancer Radiation cystitis Seasonal allergic rhinitis Surgical History H/O prostate biopsy H/O prostatectomy Status post appendectomy Family History Father Hypertension Mother Alzheimer's dementia Social History household members: spouse Smoking Status: Never smoker alcohol intake: current Assessment & Plan Assessment & Plan narrative: Assessment: 1. Hemorrhagic cystitis with detail history as previously provided and available in [facility] EHR. 2. Wound center/HBO consultation pending. Plan: 1. Continue CBI and hand irrigation for catheter patency as needed. 2. Await wound center evaluations/HBO therapy. 3. Hospitalist consultation-assistance in management and oversight of multiple medical comorbidities and insulin-dependent diabetes mellitus. Time Spent With Patient Critical Care time: I spent a total of [] minutes of critical care time on this patient's care today; this time is exclusive of procedural time. Quality VTE Deep Vein Thrombosis/Pulmonary Embolism Present on Admission: No
--- NOTE | 2022-07-05 13:34 | CM.DPC ---
DCP Cont: DCP spoke to Rachel @ Wound Center. Dr. Goldberg is coming to assess patient today on the floor. Once the assessment is done, Rachel can submit her paperwork to the [employer] for auth. Rachel expressed that there is no doctor scheduled for next week in the clinic for treatments. DCP to continue to follow and will assist where needed. Lindsay Padron RN/GEORGEP
[2022-07-05 15:46] VITALS: BP 144/81; PULSE 75; RESP 17; TEMP 35.8; O2SAT 97
--- NOTE | 2022-07-05 16:39 | P.CONS_ITS ---
History of Present Illness Consult details Date Patient Seen: 07/05/22 Time Patient Seen: 15:30 Chief complaint: URINARY ISSUE FLARE UP Reason for consult: Consideration of hyperbaric oxygen therapy Narrative: 57-year-old male with DM II and history of radiation therapy (IMRT) for prostate cancer. From 08/17/20 to 09/03/20, he received 2,520 cGy total dose over 14 fractions to the prostatic fossa. About 2 to 3 months ago he noted the d evelopment of intermittent gross painless hematuria. His symptoms worsened to the point where he is now requiring continuous bladder irrigation (CBI) at 3L/hr to keep his output clear. He states that attempts to stop CBI results in the quick formation of additional clots. Cystoscopy on 06/01/22 demonstrated radiation changes of the proximal bulbar urethral mucosa, a coapted external sphincter with urothelial radiation changes, bladder neck contracture with associated radiation changes of the mucosa, and mucosal and vascular radiation changes of the bladder neck and anterior wall of the bladder. Meds Home Medications and Allergies Home Medications Medication Instructions Recorded Confirmed Type amlodipine 10 mg tablet 10 mg PO DAILY 07/23/20 07/03/22 History hydrochlorothiazide 25 mg tablet 25 mg PO DAILY 07/23/20 07/03/22 History losartan 100 mg tablet 100 mg PO DAILY 07/23/20 07/03/22 History denosumab 60 mg/mL subcutaneous 60 mg SUBCUT [id number] #1 mL 08/16/20 07/03/22 Rx syringe (Prolia) insulin glargine 100 unit/mL (3 40 unit (0.4 mL) SUBCUT QPM #36 mL 11/10/2106/13 Rx mL) subcutaneous pen (Lantus Solostar U-100 Insulin) metformin 1,000 mg tablet 1,000 mg PO BID #180 tabs 03/06/22 07/03/22 Rx olopatadine 0.1 % eye drops See Rx Instructions .Route 03/06/22 07/03/22 Rx .COMPLEX #25 mL omeprazole 20 mg capsule,delayed 20 mg PO Q DAY #90 caps 03/06/22 07/03/22 Rx release fluticasone propionate 50 2 spray intranasal DAILY #48 mL 03/21/22 07/03/22 Rx mcg/actuation nasal spray,suspension (Flonase Allergy Relief) dulaglutide 1.5 mg/0.5 mL 1.5 mg SUBCUT QWEEK 06/09/22 07/03/22 History subcutaneous pen injector (Trulicity) megestrol 20 mg tablet 20 mg PO BID 07/03/22 07/03/22 History Allergies Allergy/AdvReac Type Severity Reaction Status Date / Time lisinopril Allergy Mild cough Verified 06/09/22 07:48 Review of Systems Review of Systems Narrative: He denies c/o fevers, chills, body aches, night sweats, fatigue. Denies nasal congestion, runny nose, or sore throat. Denies cough or difficulty breathing. Exam Vital Signs (past 8 hours): - 07/05/22 08:52 07/05/22 15:46 Temperature 96.4 F L Pulse Rate 75 Respiratory Rate 17 Blood Pressure 135/79 144/81 H Pulse Oximetry 97 Oxygen Flow Rate 0 Oxygen Delivery Method Room Air Oxygen Flow Rate 0 Narrative Exam Narrative: Constitutional: Conversant/NAD. Eyes: Sclerae anicteric. Conjunctiva pink and moist. PERRLA. Ears, Nose, Mouth, and Throat: Ear canals are clear, TMs intact, and good LR demonstrated bilaterally. Oropharynx clear; no pharyngeal erythema/exudate. No dentures. Neck: Non-tender. No masses. No thyromegaly. Respiratory: Normal respiratory effort. CTA. Cardiovascular: RRR, no MRGs. No LE edema. Gastrointestinal (GI): No masses. No TTP. No HSM. Musculoskeletal: Ambulates without assistance. Steady. No digital cyanosis or clubbing. No prior amputations. Neurological: CN II-XII intact. No focal deficits. Psychiatric: Insight and judgment intact. A&OX3. Mood good and affect congruent. Integumentary: No rashes or lesions noted. Objective Labs Result Diagrams: 07/03/22 07:21 07/02/22 22:35 Labs: 07/02/22: A1c 9.2 CBC noted for mild normocytic anemia. Otherwise, unremarkable. CMP without significant abnormality. UA noted for red color and >100 RBCs/hpf. [facility] Medical History Acquired contracture of bladder neck Diabetes mellitus with insulin therapy Elevated PSA Erectile dysfunction GERD (gastroesophageal reflux disease) Glucosuria Gross hematuria Hyperglycemia Hypertension Prostate cancer Prostate cancer Radiation cystitis Seasonal allergic rhinitis Surgical History H/O prostate biopsy H/O prostatectomy Status post appendectomy Family History Father Hypertension Mother Alzheimer's dementia Comment: HBO-specific past medical history: Patient has no history of untreated pneumothorax, claustrophobia, congenital spherocytosis, asthma, COPD, eustachean tube dysfunction, pacemaker or epidural pain pump implant, seizures, past or current treatment with bleomycin, or current treatment with cisplatin, disulfiram, doxorubicin, or sulfamylon. Social History household members: spouse Tobacco & Substance Use Smoking Status: Never smoker alcohol intake: current Assessment & Plan Assessment & Plan narrative: Radiation cystitis/Late effects of radiation. The vast majority of published series applying hyperbaric oxygen to radiation cystitis are positive reports. This success rate is especially noteworthy when compared to published research demonstrating a poor outcome and significant mortality rate when HBOT is not administered, even when radical surgical intervention is employed. Research has also demonstrated the importance of early intervention. He is an excellent candidate for HBOT. The impact of hyperbaric oxygen in terms of its beneficial effects is likely to involve at least 3 mechanisms in radi ation damaged tissues: 1. Hyperbaric oxygen stimulates angiogenesis and secondarily improves tissue oxygenation. 2. Hyperbaric oxygen reduces fibrosis 3. Hyperbaric oxygen immobilizes and induces an increase of stem cells within irradiated tissues that can differentiate, as needed, by that tissue. He has no absolute contraindication to HBO therapy. The risks of HBO are far outweighed by the benefits in his situation. His situation is complicated by current requirement for CBI to prevent further clot formation. HBO2 treatments generally last 90-120 minutes. In patients requiring CBI, this length of time can cause blood clot accumulation and urethral obstruction unless adequate CBI flows are maintained during the course of the treatment. If there is obstruction, the bladder may distend leading to further hemorrhage. In addition, there is a potential for bladder perforation. The ability to perform CBI in a monoplace chamber, such as in our department, requires a special set up that is not available. This would include a specialized external hyperbaric IV pump and tubing capable of overcoming the pressure gradient of HBOT and control the flow rate. A specialized catheter ada pter would also be needed to connect the hyperbaric IV tubing to the irrigation port. If possible, I would recommend transfer to a hyperbaric center with a multiplace chamber (such as [facility]) that would obviate the need for specialized equipment. If that is not possible, treatment should be initiated in our chamber once he is not requiring CBI. HBO side effects were discussed with the patient including various forms of barotrauma (middle ear, sinus/paranasal, dental, and pulmonary), which could result in ear pain, ear drum rupture with resultant hearing loss, sinus pain and bleeding, tooth pain or cracking, difficulty breathing with decreased blood pressure that can result in (if untreated); worsening myopia (usually transient) and maturation of pre-existing cataracts; central nervous system oxygen toxicity (seizure); pulmonary oxygen toxicity (chest pain, difficulty marika athing, respiratory failure); claustrophobia; blood pressure effects; pulmonary edema; and hypoglycemia (in diabetics). Time Spent With Patient Critical Care time: I spent a total of [] minutes of critical care time on this patient's care today; this time is exclusive of procedural time.
--- NOTE | 2022-07-05 17:31 | PM.CN ---
History of Present Illness Consult details Date Patient Seen: 07/05/22 Time Patient Seen: 17:00 Chief complaint: URINARY ISSUE FLARE UP Reason for consult: Medical management of diabetes mellitus type 2 Narrative: 57-year-old gentleman with previous prostate cancer status post treatment with radical prostatectomy in October of 2019 as well as postoperative prostatic fossa and pelvic radiation, subsequent radiation cystitis, type 2 diabetes, insulin dependent, hypertension, gastroesophageal reflux disease, and allergic rhinitis who was admitted to the urology service on July 03 with gross hematuria felt to be secondary to radiation cystitis. He had onset of hematuria on July 02. CBI catheter was placed and after 2 L of irrigation, his urine output cleared. He was discharged home without a catheter. However, he returned later in the evening with recurrent gross hematuria. CBI catheter was subsequently placed and CBI was initiated. Patient was subsequently admitted for further care. He has continued to require CBI due to ongoing hematuria. Plans were in place to attempt [facility] treatment [facility]. However, he was advised the CBI needs to be completed before that be accomplished. Evidently, the hyperbaric chamber at [facility] could be used even with the CBI catheter in place, but there are no beds available. Hospitalist consult was requested today to assist with management of his insulin-dependent diabetes and other medical management inclusive of his hypertension. Patient expresses frustration with the hospital's visitation policy. He reports he is otherwise feeling physically quite well. He is tolerating CBI. No pain. No nausea or vomiting. No fevers or chills. Meds Home Medications and Allergies Home Medications Medication Instructions Recorded Confirmed Type amlodipine 10 mg tablet 10 mg PO DAILY 07/23/20 07/03/22 History hydrochlorothiazide 25 mg tablet 25 mg PO DAILY 07/23/20 07/03/22 History losartan 100 mg tablet 100 mg PO DAILY 07/23/20 07/03/22 History denosumab 60 mg/mL subcutaneous 60 mg SUBCUT [id number] #1 mL 08/16/20 07/03/22 Rx syringe (Prolia) insulin glargine 100 unit/mL (3 40 unit (0.4 mL) SUBCUT QPM #36 mL 11/10/21 07/03/22 Rx mL) subcutaneous pen (Lantus Solostar U-100 Insulin) metformin 1,000 mg tablet 1,000 mg PO BID #180 tabs 03/06/22 07/03/22 Rx olopatadine 0.1 % eye drops See Rx Instructions .Route 03/06/22 07/03/22 Rx .COMPLEX #25 mL omeprazole 20 mg capsule,delayed 20 mg PO Q DAY #90 caps 03/06/22 07/03/22 Rx release fluticasone propionate 50 2 spray intranasal DAILY #48 mL 03/21/22 07/03/22 Rx mcg/actuation nasal spray,suspension (Flonase Allergy Relief) dulaglutide 1.5 mg/0.5 mL 1.5 mg SUBCUT QWEEK 06/09/22 07/03/22 History subcutaneous pen injector (Trulicity) megestrol 20 mg tablet 20 mg PO BID 07/03/22 07/03/22 History Allergies Allergy/AdvReac Type Severity Reaction Status Date / Time lisinopril Allergy Mild cough Verified 06/09/22 07:48 Review of Systems Review of Systems Narrative: All other systems were reviewed negative Exam Vital Signs (past 8 hours): - 07/05/22 15:46 Temperature 96.4 F L Pulse Rate 75 Respiratory Rate 17 Blood Pressure 144/81 H Pulse Oximetry 97 Oxygen Flow Rate 0 Oxygen Delivery Method Room Air Oxygen Flow Rate 0 Narrative Exam Narrative: GEN: Very pleasant middle-aged male, Alert and oriented x3, no acute distress HEENT: Normocephalic, face symmetric, pupils equal round reactive to light, extraocular movements intact, sclerae anicteric, conjunctiva clear, nares patent, oropharynx reveals an intact soft and hard palate with moist mucous membranes, dentition is fair NECK: Supple, no lymphadenopathy, thyroid without enlargement or nodularity, carotids no bruits CHEST: Respiratory excursions symmetric, clear to auscultation bilaterally CV: Regular rate and rhythm, no murmurs, rubs, gallops, PMI nondisplaced ABD: Soft, nontender, nondistended, bowel sounds present in all 4 quadrants, no organomegaly or masses appreciated EXTR: Warm, well perfused, no clubbing/cyanosis/edema SKIN: Warm and dry, without rash NEURO: Alert and oriented x3, grossly intact PSYCH: Mood and affect is within normal limits, judgment and insight are appropriate : Persistent red tinged urine noted in catheter bag Objective Labs Result Diagrams: 07/03/22 07:21 07/02/22 22:35 [facility] Medical History Acquired contracture of bladder neck Diabetes mellitus with insulin therapy Elevated PSA Erectile dysfunction GERD (gastroesophageal reflux disease) Glucosuria Gross hematuria Hyperglycemia Hypertension Prostate cancer Prostate cancer Radiation cystitis Seasonal allergic rhinitis Surgical History H/O prostate biopsy H/O prostatectomy Status post appendectomy Family History Father Hypertension Mother Alzheimer's dementia Social History household members: spouse Tobacco & Substance Use Smoking Status: Never smoker alcohol intake: current Assessment & Plan Assessment & Plan narrative: 1. Insulin-dependent diabetes mellitus Patient reports he is followed by endocrinology and has excellent blood sugar control. Since he has been in the hospital, all blood sugars have been less than 144. He remains on his usual outpatient dose of Lantus 40 units subQ each evening, as well as metformin a 1000 mg twice daily. He has been receiving a regular diet. Will place on a controlled carb diet for now. Continue fingersticks and sliding scale. 2. Hypertension Blood pressures are mildly elevated. He remains on amlodipine 10 mg daily, hydrochlorothiazide 25 mg daily. 3. Radiation cystitis with hemorrhage Continue CBI per Urology's discretion. Awaits discontinuation of CBI to pursue hyperbaric tx. 4. Acute blood loss anemia Hemoglobin was 11.7 on admission. It did drop down to 10.7 on July 03. Will repeat labs tomorrow. Code status Full Prophylaxis Chemical prophylaxis contraindicated in the setting of gross hematuria Disposition Per Urology Time Spent With Patient Critical Care time: I spent a total of [] minutes of critical care time on this patient's care today; this time is exclusive of procedural time.
[2022-07-05] MEDS: INSULIN GLARGINE 100 UNIT/ML 3ML PEN 40 UNIT SUBCUT (18:13)
[2022-07-05] MEDS: AMLODIPINE 5 MG TABLET 10 MG PO (20:07)
[2022-07-05 21:00] VITALS: BP 140/79; PULSE 90; RESP 18; TEMP 35.8; O2SAT 98
[2022-07-06 05:09] VITALS: BP 135/71; PULSE 90; RESP 17; TEMP 36.2; O2SAT 97
[2022-07-06 06:29] LABS: Add Manual Diff / Slide Review NO; Basophils Absolute Auto 100 /uL (0-100); Basophils Percent Auto 1.2 % (0-2); Eosinophils Absolute Auto 200 /uL (0-450); Eosinophils Percent Auto 3.8 % (2-4); Hematocrit 28.9 % (41-53); Hemoglobin 10.3 g/dL (13.5-17.5); Lymphocytes Absolute Auto 1000 /uL (1100-4500); Lymphocytes Percent Auto 16.3 % (25-40); Mean Corpuscular HGB Conc 35.5 % (30-36); Mean Corpuscular Hemoglobin 34.2 PG (26-34); Mean Corpuscular Volume 96.2 fL (80-100); Monocytes Absolute Auto 600 /uL (0-900); Monocytes Percent Auto 9.6 % (3-14); Neutrophils Absolute Auto 4200 /uL (1500-7000); Neutrophils Percent Auto 69.1 % (50-75); Platelet Count 198 X10^3/uL (150-400); Red Cell Distribution Width 13.3 % (11.6-14.8); White Blood Cell Count 6.1 X10^3/uL (4.5-11.0)
[2022-07-06 06:43] LABS: BUN Creatinine Ratio 22.8 (6-22); Blood Urea Nitrogen 18 mg/dL (9-20); Calcium 9.6 mg/dL (8.4-10.2); Carbon Dioxide 24 mmol/L (22-32); Chloride 104 mmol/L (98-107); Estimated Glomerular Filt Rate > 60 mL/min (>60); Glucose 119 mg/dL (70-100); HEMOLYSIS < 15 (0-50); Potassium 4.2 mmol/L (3.4-5.1); Sodium 136 mmol/L (137-145)
[2022-07-06 08:55] VITALS: BP 135/71
[2022-07-06] MEDS: hydroCHLOROthiazide 25 MG TABLET PO (08:55)
[2022-07-06] MEDS: BISACODYL 10 MG SUPP PR (08:55)
[2022-07-06] MEDS: METFORMIN HCL 500 MG TABLET 1000 MG PO ×2 (08:55→20:12)
[2022-07-06] MEDS: LOSARTAN 50 MG TABLET 100 MG PO (08:55)
[2022-07-06 09:15] VITALS: BP 128/80; PULSE 99; RESP 18; TEMP 36.3; O2SAT 97
--- NOTE | 2022-07-06 09:33 | P.PN_ITS ---
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 Will change to regular diet. No other new complaints Exam Vital Signs (past 8 hours): - 07/06/22 05:09 07/06/22 08:55 07/06/22 09:15 Temperature 97.1 F L 97.4 F L Pulse Rate 90 99 H Respiratory Rate 17 18 Blood Pressure 135/71 135/71 128/80 Pulse Oximetry 97 97 Oxygen Flow Rate 0 0 Oxygen Delivery Method Room Air Oxygen Flow Rate 0 Narrative Exam Narrative: GEN:? Alert and oriented x3, no acute distress HEENT:? Normocephalic, face symmetric, pupils equal round reactive to light, extraocular movements intact, sclerae anicteric, conjunctiva clear, nares patent, oropharynx reveals an intact soft and hard palate with moist mucous membranes, dentition is fair NECK:? Supple, no lymphadenopathy, thyroid without enlargement or nodularity, c arotids no bruits CHEST:? Respiratory excursions symmetric, clear to auscultation bilaterally CV:? Regular rate and rhythm, no murmurs, rubs, gallops, PMI nondisplaced ABD:? Soft, nontender, nondistended, bowel sounds present in all 4 quadrants, no organomegaly or masses appreciated EXTR:? Warm, well perfused, no clubbing/cyanosis/edema SKIN:? Warm and dry, without rash. No new lesions. NEURO:? Alert and oriented x3, grossly intact PSYCH:? Mood and affect is within normal limits, judgment and insight are appropriate :? Persistent red tinged urine noted in catheter bag. Continuing with CBI. Objective Labs Result Diagrams: 07/06/22 06:11 07/06/22 06:11 Labs: Laboratory Results - last 24 hr 07/06/22 07/06/22 06:11 06:11 WBC 6.1 RBC 3.00 L Hgb 10.3 L Hct 28.9 L MCV 96.2 MCH 34.2 H MCHC 35.5 RDW 13.3 Plt Count 198 Neut % (Auto) 69.1 Lymph % (Auto) 16.3 L [place] % (Auto) 9.6 Eos % (Auto) 3.8 Baso % (Auto) 1.2 Neut # (Auto) 4200 Lymph # (Auto) 1000 L [place] # (Auto) 600 Eos # (Auto) 200 Baso # (Auto) 100 Sodium 136 L Potassium 4.2 Chloride 104 Carbon Dioxide 24 BUN 18 Creatinine 0.79 Estimated GFR > 60 BUN/Creatinine Ratio 22.8 H Glucose 119 H Calcium 9.6 PFSH Medical History Acquired contracture of bladder neck Diabetes mellitus with insulin therapy Elevated PSA Erectile dysfunction GERD (gastroesophageal reflux disease) Glucosuria Gross hematuria Hyperglycemia Hypertension Prostate cancer Prostate cancer Radiation cystitis Seasonal allergic rhinitis Surgical History H/O prostate biopsy H/O prostatectomy Status post appendectomy Family History Father Hypertension Mother Alzheimer's dementia Social History household members: spouse Smoking Status: Never smoker alcohol intake: current Assessment & Plan Assessment & Plan narrative: 1. Insulin-dependent diabetes mellitus Patient reports he is followed by endocrinology and has excellent blood sugar control.? Blood sugar this morning blood draw is 119.? He remains on his usual outpatient dose of Lantus 40 units subQ each evening, as well as metformin a 1000 mg twice daily.? Was place on a controlled carb diet for now.? Patient is able to pick and choose carbohydrates appropriately on his regular diet. Continue fingersticks and sliding scale. 2. Hypertension Blood pressures are adequately controlled with morning BP of 128/80.? He remains on amlodipine 10 mg daily, hydrochlorothiazide 25 mg daily. 3. Radiation cystitis with hemorrhage Continue CBI per Urology's discretion.? Awaits discontinuation of CBI to pursue hyperbaric tx. 4. Acute blood loss anemia Hemoglobin was 11.7 on admission.? It did drop down to 10.7 on July 03. ? Currently 10.3 today and stable. Will repeat labs tomorrow. Code status Full Prophylaxis Chemical prophylaxis contraindicated in the setting of gross hematuria Disposition Per Urology Time Spent With Patient Critical Care time: I spent a total of [] minutes of critical care time on this patient's care today; this time is exclusive of procedural time. Quality VTE Deep Vein Thrombosis/Pulmonary Embolism Present on Admission: No
--- NOTE | 2022-07-06 09:50 | P.PN_ITS ---
Subjective Subjective Date Patient Seen: 07/06/22 Time Patient Seen: 09:30 Interval history: Hospital day for management gross hematuria clot retention secondary to radiation cystitis. He required hand irrigation of a small number of clots last evening and also during daytime hours yesterday. Otherwise drip rate remains at low to moderate with light pink outflow. Patient denies pain. Consultations from Dr. Jones and Dr. Goldberg greatly appreciated. Exam Vital Signs (past 8 hours): - 07/06/22 05:09 07/06/22 08:55 07/06/22 09:15 Temperature 97.1 F L 97.4 F L Pulse Rate 90 99 H Respiratory Rate 17 18 Blood Pressure 135/71 135/71 128/80 Pulse Oximetry 97 97 Oxygen Flow Rate 0 0 Oxygen Delivery Method Room Air Oxygen Flow Rate 0 Narrative Exam Narrative: Sitting upright in bedside chair in no distress. Abdomen remains round and protuberant, soft, nontender. Three way Hoffman catheter is pink tinge to light yip without clots Objective Labs Result Diagrams: 07/06/22 06:11 07/06/22 06:11 Labs: Laboratory Results - last 24 hr 07/06/22 07/06/22 06:11 06:11 WBC 6.1 RBC 3.00 L Hgb 10.3 L Hct 28.9 L MCV 96.2 MCH 34.2 H MCHC 35.5 RDW 13.3 Plt Count 198 Neut % (Auto) 69.1 Lymph % (Auto) 16.3 L [place] % (Auto) 9.6 Eos % (Auto) 3.8 Baso % (Auto) 1.2 Neut # (Auto) 4200 Lymph # (Auto) 1000 L [place] # (Auto) 600 Eos # (Auto) 200 Baso # (Auto) 100 Sodium 136 L Potassium 4.2 Chloride 104 Carbon Dioxide 24 BUN 18 Creatinine 0.79 Estimated GFR > 60 BUN/Creatinine Ratio 22.8 H Glucose 119 H Calcium 9.6 PFSH Medical History Acquired contracture of bladder neck Diabetes mellitus with insulin therapy Elevated PSA Erectile dysfunction GERD (gastroesophageal reflux disease) Glucosuria Gross hematuria Hyperglycemia Hypertension Prostate cancer Prostate cancer Radiation cystitis Seasonal allergic rhinitis Surgical History H/O prostate biopsy H/O prostatectomy Status post appendectomy Family History Father Hypertension Mother Alzheimer's dementia Social History household members: spouse Smoking Status: Never smoker alcohol intake: current Assessment & Plan Assessment & Plan narrative: Assessment: 1. Radiation cystitis with associated hematuria and clot retention-stable sterile normal saline CBI. 2. Acute blood-loss anemia. Currently clinically stable. Plan: 1. Continue normal saline CBI. 2. Will discuss with management and administration efforts to secure transfer to facility such as [facility] with a multi place hyperbaric oxygen chamber. Alternatively, I will discuss with pharmacy availability alum irrigation. Time Spent With Patient Critical Care time: I spent a total of [] minutes of critical care time on this patient's care today; this time is exclusive of procedural time. Quality VTE Deep Vein Thrombosis/Pulmonary Embolism Present on Admission: No
[2022-07-06 16:50] VITALS: BP 146/85; PULSE 102; RESP 18; TEMP 36; O2SAT 97
[2022-07-06] MEDS: INSULIN GLARGINE 100 UNIT/ML 3ML PEN 40 UNIT SUBCUT (18:22)
[2022-07-06] MEDS: AMLODIPINE 5 MG TABLET 10 MG PO (20:12)
[2022-07-06 20:50] VITALS: BP 130/79; PULSE 87; RESP 14; TEMP 35.8; O2SAT 96
[2022-07-07 06:00] VITALS: BP 126/74; PULSE 82; RESP 14; TEMP 35.9; O2SAT 96
[2022-07-07 06:20] LABS: Add Manual Diff / Slide Review NO; Basophils Absolute Auto 100 /uL (0-100); Basophils Percent Auto 1.1 % (0-2); Eosinophils Absolute Auto 200 /uL (0-450); Eosinophils Percent Auto 4.1 % (2-4); Hematocrit 28.4 % (41-53); Hemoglobin 10.1 g/dL (13.5-17.5); Lymphocytes Absolute Auto 1100 /uL (1100-4500); Lymphocytes Percent Auto 17.9 % (25-40); Mean Corpuscular HGB Conc 35.7 % (30-36); Mean Corpuscular Hemoglobin 34.3 PG (26-34); Monocytes Absolute Auto 500 /uL (0-900); Monocytes Percent Auto 8.9 % (3-14); Neutrophils Absolute Auto 4100 /uL (1500-7000); Platelet Count 208 X10^3/uL (150-400); Red Blood Cell Count 2.95 X10^6/uL (4.5-5.9)
[2022-07-07 06:48] LABS: Alanine Aminotransferase 19 IU/L (<50); Albumin 3.9 g/dL (3.5-5.0); Albumin Globulin Ratio 1.3 (1.0-2.8); Alkaline Phosphatase 40 U/L (38-126); Aspartate Aminotransferase 19 IU/L (17-59); BUN Creatinine Ratio 24.3 (6-22); Bilirubin Total 0.3 mg/dL (0.2-1.3); Blood Urea Nitrogen 18 mg/dL (9-20); Calcium 9.6 mg/dL (8.4-10.2); Carbon Dioxide 22 mmol/L (22-32); Chloride 105 mmol/L (98-107); Estimated Glomerular Filt Rate > 60 mL/min (>60); Globulin 2.9 g/dL (1.7-4.1); Glucose 106 mg/dL (70-100); HEMOLYSIS < 15 (0-50); Sodium 136 mmol/L (137-145); Total Protein 6.8 g/dL (6.3-8.2)
--- NOTE | 2022-07-07 07:31 | PM.PN.1 ---
Subjective Subjective Date Patient Seen: 07/07/22 Interval history: 57-year-old gentleman with previous prostate cancer status post treatment with radical prostatectomy in October of 2019 as well as postoperative prostatic fossa and pelvic radiation, subsequent radiation cystitis, type 2 diabetes, insulin dependent, hypertension, gastroesophageal reflux disease, and allergic rhinitis who was admitted to the urology service on July 03 with gross hematuria felt to be secondary to radiation cystitis. Pt reports there are plans for an alum trial tomorrow. He continue to have red urine draining via CBI catheter. He notes yesterday he went 11 hours w/o needing the catheter to be irrigated for clots. He also notes he has had constipation since admission. Has used dulcolax suppository x 2. Exam Vital Signs (past 8 hours): - 07/07/22 06:00 Temperature 96.7 F L Pulse Rate 82 Respiratory Rate 14 Blood Pressure 126/74 Pulse Oximetry 96 Oxygen Flow Rate 0 Oxygen Delivery Method Room Air Oxygen Flow Rate 0 Narrative Exam Narrative: GEN:? Very pleasant middle-aged male, Alert and oriented x3, no acute distress HEENT:? Normocephalic, face symmetric CHEST:? Respiratory excursions symmetric, clear to auscultation bilaterally CV:? Regular rate and rhythm, no murmurs, rubs, gallops, PMI nondisplaced ABD:? Soft, nontender, nondistended, bowel sounds present in all 4 quadrants, no organomegaly or masses appreciated EXTR:? Warm, well perfused, no clubbing/cyanosis/edema SKIN:? Warm and dry, without rash NEURO:? Alert and oriented x3, grossly intact :? Persistent red tinged urine noted in catheter bag Objective Labs Result Diagrams: 07/07/22 06:03 07/07/22 06:03 Labs: Laboratory Results - last 24 hr 07/07/22 07/07/22 06:03 06:03 WBC 6.0 RBC 2.95 L Hgb 10.1 L Hct 28.4 L MCV 96.0 MCH 34.3 H MCHC 35.7 RDW 13.0 Plt Count 208 Neut % (Auto) 68.0 Lymph % (Auto) 17.9 L [place] % (Auto) 8.9 Eos % (Auto) 4.1 H Baso % (Auto) 1.1 Neut # (Auto) 4100 Lymph # (Auto) 1100 [place] # (Auto) 500 Eos # (Auto) 200 Baso # (Auto) 100 Sodium 136 L Potassium 4.0 Chloride 105 Carbon Dioxide 22 BUN 18 Creatinine 0.74 Estimated GFR > 60 BUN/Creatinine Ratio 24.3 H Glucose 106 H Calcium 9.6 Total Bilirubin 0.3 AST 19 ALT 19 Alkaline Phosphatase 40 Total Protein 6.8 Albumin 3.9 Globulin 2.9 Albumin/Globulin Ratio 1.3 PFSH Medical History Acquired contracture of bladder neck Diabetes mellitus with insulin therapy Elevated PSA Erectile dysfunction GERD (gastroesophageal reflux disease) Glucosuria Gross hematuria Hyperglycemia Hypertension Prostate cancer Prostate cancer Radiation cystitis Seasonal allergic rhinitis Surgical History H/O prostate biopsy H/O prostatectomy Status post appendectomy Family History Father Hypertension Mother Alzheimer's dementia Social History household members: spouse Smoking Status: Never smoker alcohol intake: current Assessment & Plan Assessment & Plan narrative: 1. Insulin-dependent diabetes mellitus Excellent blood glucose control over the past 24 hours. He remains on his usual outpatient dose of Lantus 40 units subQ each evening, as well as metformin 1000 mg twice daily.?Continue controlled carb diet. 2. Hypertension Blood pressures are overall well-controlled.? He remains on amlodipine 10 mg daily, hydrochlorothiazide 25 mg daily. 3. Radiation cystitis with hemorrhage Continue CBI per Urology's discretion.? Awaits discontinuation of CBI to pursue hyperbaric tx. 4. Acute blood loss anemia Hemoglobin was 11.7 on admission.? It is downtrending a bit each day, from 10.7 on 07/03 to 10.3 yesterday and 10.1 today. No indication for transfusion. 5. Constipation Will add senna and colace. Code status Full Prophylaxis Chemical prophylaxis contraindicated in the setting of gross hematuria Disposition Per Urology Time Spent With Patient Critical Care time: I spent a total of [] minutes of critical care time on this patient's care today; this time is exclusive of procedural time. Quality VTE Deep Vein Thrombosis/Pulmonary Embolism Present on Admission: No
[2022-07-07 08:19] VITALS: BP 126/74; PULSE 82
[2022-07-07] MEDS: DOCUSATE 100 MG CAPSULE PO ×2 (08:19→20:13)
[2022-07-07] MEDS: BISACODYL 10 MG SUPP PR (08:19)
[2022-07-07] MEDS: hydroCHLOROthiazide 25 MG TABLET PO (08:19)
[2022-07-07] MEDS: LOSARTAN 50 MG TABLET 100 MG PO (08:19)
[2022-07-07] MEDS: METFORMIN HCL 500 MG TABLET 1000 MG PO ×2 (08:19→17:32)
[2022-07-07] MEDS: SENNOSIDES 8.6 MG TABLET PO ×2 (08:36→20:13)
[2022-07-07 14:30] VITALS: BP 132/76; PULSE 83; RESP 16; TEMP 36.5; O2SAT 98
[2022-07-07] MEDS: INSULIN GLARGINE 100 UNIT/ML 3ML PEN 40 UNIT SUBCUT (17:27)
--- NOTE | 2022-07-07 18:00 | CM.DPC ---
CM Spoke with SOAKER HELPER Alisa chatman and Current Hospitalist provider Dr. Dave about plan of care - current plan of care is patient will start receiving alum trial tomorrow as a intermediate treatment to get the patient to be able to control there bleeding patient and DC home and follow up with Out patient Hyperbaric treatment at the wound care center the day after day which was communicated with Dr. Dave and she stated understanding of plan. Malka the Acute care mgr is working with the wound care center on making sure all the needed information is completed for the patients prior authorization for out patient Hyperbaric treatment is completed prior to patients appointment. Caitlin Garcia RNterrazzo tile setter
[2022-07-07] MEDS: AMLODIPINE 5 MG TABLET 10 MG PO (20:13)
[2022-07-07 20:41] VITALS: BP 129/86; PULSE 94; RESP 18; TEMP 35.7; O2SAT 97
[2022-07-08 05:05] VITALS: BP 139/76; PULSE 97; RESP 16; TEMP 36; O2SAT 96
--- NOTE | 2022-07-08 08:23 | P.PN_ITS ---
Subjective Subjective Date Patient Seen: 07/08/22 Interval history: 57-year-old gentleman with previous prostate cancer status post treatment with radical prostatectomy in October of 2019 as well as postoperative prostatic fossa and pelvic radiation, subsequent radiation cystitis, type 2 diabetes, insulin dependent, hypertension, gastroesophageal reflux disease, and allergic rhinitis who was admitted to the urology service on July 03 with gross hematuria felt to be secondary to radiation cystitis. Pt anticipates alum irrigation will be initiated today. He reports his longest time between needing his catheter hand irrigated was about 6 hours yesterday. He will notice the bleeding taper off, but then when he gets up and moves around, it increases. Sleeping poorly overall. delivered his body pillow yesterday but he still had difficulty getting comfortable. No other c/o. Exam Vital Signs (past 8 hours): - 07/08/22 05:05 Temperature 96.8 F L Pulse Rate 97 H Respiratory Rate 16 Blood Pressure 139/76 Pulse Oximetry 96 Oxygen Delivery Method Room Air Oxygen Flow Rate 0 Narrative Exam Narrative: GEN:? Very pleasant middle-aged male, Alert and oriented x3, no acute distress HEENT:? Normocephalic, face symmetric CHEST:? Respiratory excursions symmetric, clear to auscultation bilaterally CV:? Regular rate and rhythm, no murmurs, rubs, gallops, PMI nondisplaced ABD:? Soft, nontender, nondistended, bowel sounds present in all 4 quadrants, no organomegaly or masses appreciated EXTR:? Warm, well perfused, no clubbing/cyanosis/edema SKIN:? Warm and dry, without rash NEURO:? Alert and oriented x3, grossly intact :? red tinged urine noted in catheter bag, no visible clots Objective Labs Result Diagrams: 07/07/22 06:03 07/07/22 06:03 REPLACED BY [facility] Medical History Acquired contracture of bladder neck Diabetes mellitus with insulin therapy Elevated PSA Erectile dysfunction GERD (gastroesophageal reflux disease) Glucosuria Gross hematuria Hyperglycemia Hypertension Prostate cancer Prostate cancer Radiation cystitis Seasonal allergic rhinitis Surgical History H/O prostate biopsy H/O prostatectomy Status post appendectomy Family History Father Hypertension Mother Alzheimer's dementia Social History household members: spouse Smoking Status: Never smoker alcohol intake: current Assessment & Plan Assessment & Plan narrative: 1. Insulin-dependent diabetes mellitus Good blood glucose control over the past 24 hours. He remains on his usual outpatient dose of Lantus 40 units subQ each evening, as well as metformin 1000 mg twice daily. He is back on a regular diet per his request. 2. Hypertension Blood pressures are overall well-controlled.? He remains on amlodipine 10 mg daily, hydrochlorothiazide 25 mg daily. 3. Radiation cystitis with hemorrhage Continue CBI per Urology's discretion.? Alum irrigation trial to start today once alum arrives. Awaits discontinuation of CBI to pursue hyperbaric tx. 4. Acute blood loss anemia Hemoglobin was 11.7 on admission.? It was down to 10.1 yesterday.? No indication for transfusion. Repeat CBC tomorrow. 5.? Constipation Continue senna and colace. Code status Full Prophylaxis Chemical prophylaxis contraindicated in the setting of gross hematuria Disposition Per Urology Time Spent With Patient Critical Care time: I spent a total of [] minutes of critical care time on this patient's care today; this time is exclusive of procedural time. Quality VTE Deep Vein Thrombosis/Pulmonary Embolism Present on Admission: No
[2022-07-08] MEDS: DOCUSATE 100 MG CAPSULE PO ×2 (08:53→21:47)
[2022-07-08 08:54] VITALS: BP 139/76; PULSE 97
[2022-07-08] MEDS: LOSARTAN 50 MG TABLET 100 MG PO (08:54)
[2022-07-08] MEDS: hydroCHLOROthiazide 25 MG TABLET PO (08:54)
[2022-07-08] MEDS: SENNOSIDES 8.6 MG TABLET PO ×2 (08:54→21:47)
[2022-07-08] MEDS: METFORMIN HCL 500 MG TABLET 1000 MG PO ×2 (08:54→16:48)
[2022-07-08] MEDS: BISACODYL 10 MG SUPP PR (08:58)
[2022-07-08 12:15] VITALS: BP 136/79; RESP 18; TEMP 35.8; O2SAT 97
[2022-07-08] MEDS: [UNRECOGNIZED DRUG - OTHER] IRR (13:59)
[2022-07-08] MEDS: WATER FOR IRRIGATION STERILE IRR (13:59)
[2022-07-08] MEDS: INSULIN GLARGINE 100 UNIT/ML 3ML PEN 40 UNIT SUBCUT (16:48)
--- NOTE | 2022-07-08 17:42 | PC.NURSE ---
Pt is AxOx4, independent and cooperative. VSS, pt denies pain. BG is in good range-119/115/112 and pt recieved his Metformin in the evening. Pt is eating well. Potassium Alum started today and pt is doing well but still needed irrigation sometimes. Otherwise, no problem. Continue monitor.
[2022-07-08 20:00] VITALS: BP 133/78; PULSE 93; RESP 16; TEMP 36.1; O2SAT 93
[2022-07-08] MEDS: AMLODIPINE 5 MG TABLET 10 MG PO (21:47)
--- NOTE | 2022-07-08 22:45 | PC.NURSE ---
Addendum entered by Rosa Isela Garcia R.N. 07/09/22 06:55: Pt has needed to be manually irrigated almost hourly, c/o bladder spasm (pt having some small clots when being iirrigated). At the times there was a lot of ressistance during irrigation. Pt started on Pyridium and oxybutinin per Dr. Pickering. Pt not getting much relief from any of these. Pt now has an order for belladona suppository (at the moment the pharmacy only has 3 more left). Original Note: Pt has been having increased bladder spasm, pt has been manually twice so far during the shifts. pt having some small clots when irrigated.
[2022-07-08] MEDS: PHENAZOPYRIDINE 100 MG TABLET PO (23:00)
[2022-07-08] MEDS: OXYBUTYNIN 5 MG TABLET PO (23:00)
[2022-07-09] MEDS: WATER FOR IRRIGATION STERILE IRR ×2 (02:37→16:35)
[2022-07-09] MEDS: [UNRECOGNIZED DRUG - OTHER] IRR ×2 (02:37→16:35)
[2022-07-09 07:09] LABS: Add Manual Diff / Slide Review NO; Basophils Absolute Auto 100 /uL (0-100); Basophils Percent Auto 0.8 % (0-2); Eosinophils Absolute Auto 200 /uL (0-450); Eosinophils Percent Auto 2.3 % (2-4); Hematocrit 26.2 % (41-53); Hemoglobin 9.4 g/dL (13.5-17.5); Lymphocytes Absolute Auto 800 /uL (1100-4500); Lymphocytes Percent Auto 10.3 % (25-40); Mean Corpuscular Hemoglobin 34.3 PG (26-34); Mean Corpuscular Volume 95.4 fL (80-100); Monocytes Absolute Auto 700 /uL (0-900); Monocytes Percent Auto 8.7 % (3-14); Neutrophils Absolute Auto 6400 /uL (1500-7000); Neutrophils Percent Auto 77.9 % (50-75); Platelet Count 217 X10^3/uL (150-400); Red Blood Cell Count 2.75 X10^6/uL (4.5-5.9); Red Cell Distribution Width 13.3 % (11.6-14.8); White Blood Cell Count 8.2 X10^3/uL (4.5-11.0)
[2022-07-09] MEDS: BELLADONNA/OPIUM SUPPOSITORIES 1 EACH PR (07:24)
--- NOTE | 2022-07-09 08:05 | P.PN_ITS ---
Subjective Subjective Date Patient Seen: 07/09/22 Time Patient Seen: 11:00 Interval history: Patient having bladder spasms which have improved on oxybutinin, azo and brandon marcelino suppository. He is requesting to increase the frequency as they work well but wear off within 2 hours. Continues to have dark hematuria in nash. Exam Vital Signs (past 8 hours): Oxygen Delivery Method Room Air Oxygen Flow Rate 0 Narrative Exam Narrative: GEN:? Very pleasant middle-aged male, Alert and oriented x3, no acute distress HEENT:? Normocephalic, face symmetric CHEST:? Respiratory excursions symmetric, clear to auscultation bilaterally CV:? Regular rate and rhythm, no murmurs, rubs, gallops, PMI nondisplaced ABD:? Soft, nontender, nondistended, bowel sounds present in all 4 quadrants, no organomegaly or masses appreciated EXTR:? Warm, well perfused, no clubbing/cyanosis/edema SKIN:? Warm and dry, without rash NEURO:? Alert and oriented x3, grossly intact :? dark red urine noted in catheter bag, no visible clots Objective Labs Result Diagrams: 07/09/22 06:55 07/07/22 06:03 Labs: Laboratory Results - last 24 hr 07/09/22 06:55 WBC 8.2 RBC 2.75 L Hgb 9.4 L Hct 26.2 L MCV 95.4 MCH 34.3 H MCHC 36.0 RDW 13.3 Plt Count 217 Neut % (Auto) 77.9 H Lymph % (Auto) 10.3 L [place] % (Auto) 8.7 Eos % (Auto) 2.3 Baso % (Auto) 0.8 Neut # (Auto) 6400 Lymph # (Auto) 800 L [place] # (Auto) 700 Eos # (Auto) 200 Baso # (Auto) 100 PFSH Medical History Acquired contracture of bladder neck Diabetes mellitus with insulin therapy Elevated PSA Erectile dysfunction GERD (gastroesophageal reflux disease) Glucosuria Gross hematuria Hyperglycemia Hypertension Prostate cancer Prostate cancer Radiation cystitis Seasonal allergic rhinitis Surgical History H/O prostate biopsy H/O prostatectomy Status post appendectomy Family History Father Hypertension Mother Alzheimer's dementia Social History household members: spouse Smoking Status: Never smoker alcohol intake: current Assessment & Plan Assessment & Plan narrative: 1. Insulin-dependent diabetes mellitus Good blood glucose control over the past 24 hours. He remains on his usual outpatient dose of Lantus 40 units subQ each evening, as well as metformin 1000 mg twice daily. He is back on a regular diet per his request. A1c 5.5%. Can dc ACHS glucose checks and sliding scale and go to BID checks. 2. Hypertension Blood pressures are overall well-controlled.? He remains on amlodipine 10 mg daily, hydrochlorothiazide 25 mg daily. 3. Radiation cystitis with hemorrhage Continue CBI per Urology's discretion.? Alum irrigation continues. Awaits discontinuation of CBI to pursue hyperbaric tx which he has scheduled as outpatient for 07/17. 4. Acute blood loss anemia Hemoglobin was 11.7 on admission.? It was down to 10.1 yesterday.? No indication for transfusion. Repeat CBC tomorrow. 5.? Constipation Continue senna and colace. 6. Acute bladder spasms Patinent notes painful spasms. Started on oxybutinin, azo and brandon marcelino suppository. Will increase frequency of the oxybutinin and azo for better relief. Code status Full Prophylaxis Chemical prophylaxis contraindicated in the setting of gross hematuria Disposition Per Urology Time Spent With Patient Critical Care time: I spent a total of [] minutes of critical care time on this patient's care today; this time is exclusive of procedural time. Quality VTE Deep Vein Thrombosis/Pulmonary Embolism Present on Admission: No
[2022-07-09 08:49] VITALS: BP 120/64; PULSE 100; RESP 18; TEMP 36.7; O2SAT 97
[2022-07-09] MEDS: hydroCHLOROthiazide 25 MG TABLET PO (08:53)
[2022-07-09] MEDS: DOCUSATE 100 MG CAPSULE PO ×2 (08:53→21:27)
[2022-07-09] MEDS: SENNOSIDES 8.6 MG TABLET PO ×2 (08:53→21:27)
[2022-07-09] MEDS: LOSARTAN 50 MG TABLET 100 MG PO (08:53)
[2022-07-09] MEDS: METFORMIN HCL 500 MG TABLET 1000 MG PO ×2 (08:54→17:13)
[2022-07-09] MEDS: PHENAZOPYRIDINE 100 MG TABLET PO (08:54)
[2022-07-09] MEDS: OXYBUTYNIN 5 MG TABLET PO ×4 (08:54→21:27)
[2022-07-09 08:57] LABS: Hemoglobin A1C% w Est Avg Glu 5.5 % (4.0-6.0)
[2022-07-09] MEDS: BISACODYL 10 MG SUPP PR (10:42)
--- NOTE | 2022-07-09 10:48 | PC.NURSE ---
Addendum entered by Conchita Barroso R.N. 07/09/22 18:55: [address] Manual irrigation performed. Clots now brown in colorations. CBI drip at 42/min. Addendum entered by Conchita Barroso R.N. 07/09/22 16:41: 1635 new bag of potassium aluminum hung to CBI. Drip rate @ 41/minute Addendum entered by Conchita Barroso R.N. 07/09/22 15:50: 1530 pt states improvement is bladder spasms. Manually irrigating nash approx Q 1-2 hours. Minimal clots irrigated out. Urine brown in coloration r/t medication. Potassium/Aluminum drip now at 39 and infusing without difficulty. Original Note: shift overview 1045 K+ Alum drip now at 43/min to CBI. Have manually irrigated at least hourly producing small to medium clots. pt states B&O suppository effective to minimize pain. educated pt that drinking coffee also contributes to bladder spasms. Pt alert and oriented and able to make needs known and instructed to continue with the same.
[2022-07-09] MEDS: PHENAZOPYRIDINE 100 MG TABLET 200 MG PO ×2 (15:12→21:26)
[2022-07-09] MEDS: INSULIN GLARGINE 100 UNIT/ML 3ML PEN 40 UNIT SUBCUT (17:14)
--- NOTE | 2022-07-09 17:33 | DI.CT.S_ITS ---
PROCEDURE: CT PEL WO CON INDICATIONS: clot retention in bladder TECHNIQUE: Noncontrast 3 mm axial sections acquired through the bony pelvis, with coronal and sagittal reformatting. COMPARISON: [facility], MR, MR PELVIS PROSTATE RADIATION TREATMENT PROTOCOL, 06/17/2020, 14:36. FINDINGS: Image quality: Excellent. Bones: No fracture or osseous lesion. Soft tissues: No regional adenopathy. No focal fluid collections bowel loops are normal in caliber. A Hoffman catheter is present. There is moderate thickening of the urinary bladder which is decompressed. Moderate amount of debris within the urinary bladder is present. There is moderate fat stranding surrounding the urinary bladder. IMPRESSION: 1. Cystitis. 2. Debris within the urinary bladder. Dictated by: Donna Sellers M.D. on 07/09/2022 at 18:27 Approved by: Donna Sellers M.D. on 07/09/2022 at 18:28
[2022-07-09] MEDS: AMLODIPINE 5 MG TABLET 10 MG PO (21:27)
[2022-07-09 22:17] VITALS: BP 119/76; PULSE 105; RESP 18; TEMP 35.8; O2SAT 98
[2022-07-10 05:59] VITALS: BP 120/70; PULSE 89; RESP 19; TEMP 35.8; O2SAT 97
[2022-07-10 07:19] LABS: Add Manual Diff / Slide Review NO; Basophils Absolute Auto 100 /uL (0-100); Basophils Percent Auto 0.9 % (0-2); Eosinophils Absolute Auto 200 /uL (0-450); Eosinophils Percent Auto 2.6 % (2-4); Hematocrit 26.9 % (41-53); Hemoglobin 9.6 g/dL (13.5-17.5); Lymphocytes Absolute Auto 1500 /uL (1100-4500); Lymphocytes Percent Auto 17.7 % (25-40); Mean Corpuscular HGB Conc 35.8 % (30-36); Mean Corpuscular Hemoglobin 34.2 PG (26-34); Mean Corpuscular Volume 95.4 fL (80-100); Monocytes Absolute Auto 800 /uL (0-900); Monocytes Percent Auto 10.2 % (3-14); Neutrophils Absolute Auto 5700 /uL (1500-7000); Neutrophils Percent Auto 68.6 % (50-75); Platelet Count 266 X10^3/uL (150-400); Red Blood Cell Count 2.82 X10^6/uL (4.5-5.9); Red Cell Distribution Width 13.2 % (11.6-14.8); White Blood Cell Count 8.2 X10^3/uL (4.5-11.0)
[2022-07-10 07:31] LABS: BUN Creatinine Ratio 21.4 (6-22); Blood Urea Nitrogen 18 mg/dL (9-20); Calcium 8.4 mg/dL (8.4-10.2); Carbon Dioxide 28 mmol/L (22-32); Chloride 95 mmol/L (98-107); Estimated Glomerular Filt Rate > 60 mL/min (>60); Glucose 107 mg/dL (70-100); HEMOLYSIS < 15 (0-50); Potassium 3.6 mmol/L (3.4-5.1); Sodium 130 mmol/L (137-145)
[2022-07-10] MEDS: BELLADONNA/OPIUM SUPPOSITORIES 1 EACH PR (07:37)
--- NOTE | 2022-07-10 07:58 | P.PN_ITS ---
Subjective Subjective Date Patient Seen: 07/10/22 Time Patient Seen: 11:00 Interval history: Patient continuing to receive CBI and urine is dark red. No large clots seen. Bladder spasms greatly helped with oxybutinin, azo and brandon marcelino suppository. Exam Vital Signs (past 8 hours): - 07/10/22 05:59 Temperature 96.5 F L Pulse Rate 89 Respiratory Rate 19 Blood Pressure 120/70 Pulse Oximetry 97 Oxygen Delivery Method Room Air Oxygen Flow Rate 0 Narrative Exam Narrative: GEN:? Very pleasant middle-aged male, Alert and oriented x3, no acute distress HEENT:? Normocephalic, face symmetric CHEST:? Respiratory excursions symmetric, clear to auscultation bilaterally CV:? Regular rate and rhythm, no murmurs, rubs, gallops, PMI nondisplaced ABD:? Soft, nontender, nondistended, bowel sounds present in all 4 quadrants, no organomegaly or masses appreciated EXTR:? Warm, well perfused, no clubbing/cyanosis/edema SKIN:? Warm and dry, without rash NEURO:? Alert and oriented x3, grossly intact :? dark red urine noted in catheter bag, no visible clots Objective Labs Result Diagrams: 07/10/22 06:55 07/10/22 06:55 Labs: Laboratory Results - last 24 hr 07/09/22 07/10/22 07/10/22 08:33 06:55 06:55 WBC 8.2 RBC 2.82 L Hgb 9.6 L Hct 26.9 L MCV 95.4 MCH 34.2 H MCHC 35.8 RDW 13.2 Plt Count 266 Neut % (Auto) 68.6 Lymph % (Auto) 17.7 L [place] % (Auto) 10.2 Eos % (Auto) 2.6 Baso % (Auto) 0.9 Neut # (Auto) 5700 Lymph # (Auto) 1500 [place] # (Auto) 800 Eos # (Auto) 200 Baso # (Auto) 100 Sodium 130 L Potassium 3.6 Chloride 95 L Carbon Dioxide 28 BUN 18 Creatinine 0.84 Estimated GFR > 60 BUN/Creatinine Ratio 21.4 Glucose 107 H Hemoglobin A1c 5.5 Calcium 8.4 PFSH Medical History Acquired contracture of bladder neck Diabetes mellitus with insulin therapy Elevated PSA Erectile dysfunction GERD (gastroesophageal reflux disease) Glucosuria Gross hematuria Hyperglycemia Hypertension Prostate cancer Prostate cancer Radiation cystitis Seasonal allergic rhinitis Surgical History H/O prostate biopsy H/O prostatectomy Status post appendectomy Family History Father Hypertension Mother Alzheimer's dementia Social History household members: spouse Smoking Status: Never smoker alcohol intake: current Assessment & Plan Assessment & Plan narrative: 1. Insulin-dependent diabetes mellitus Good blood glucose control over the past 24 hours. He remains on his usual outpatient dose of Lantus 40 units subQ each evening, as well as metformin 1000 mg twice daily. He is back on a regular diet per his request. A1c 5.5%. Can dc ACHS glucose checks and sliding scale and go to BID checks. 2. Hypertension Blood pressures are overall well-controlled.? He remains on amlodipine 10 mg daily, hydrochlorothiazide 25 mg daily. 3. Radiation cystitis with hemorrhage Continue CBI per Urology's discretion.? Alum irrigation continues. Awaits discontinuation of CBI to pursue hyperbaric tx which he has scheduled as outpatient for 07/17. 4. Acute blood loss anemia Hemoglobin was 11.7 on admission.? Now down to 9's but stable. 5.? Constipation Continue senna and colace. 6. Acute bladder spasms Patient notes painful spasms. Has received vast relief on oxybutinin, azo and brandon marcelino suppository. Code status Full Prophylaxis Chemical prophylaxis contraindicated in the setting of gross hematuria Disposition Per Urology, likely home in 1-2 days Time Spent With Patient Critical Care time: I spent a total of [] minutes of critical care time on this patient's care today; this time is exclusive of procedural time. Quality VTE Deep Vein Thrombosis/Pulmonary Embolism Present on Admission: No
[2022-07-10] MEDS: hydroCHLOROthiazide 25 MG TABLET PO (08:53)
[2022-07-10] MEDS: OXYBUTYNIN 5 MG TABLET PO ×4 (08:53→20:55)
[2022-07-10] MEDS: METFORMIN HCL 500 MG TABLET 1000 MG PO ×2 (08:53→17:28)
[2022-07-10] MEDS: DOCUSATE 100 MG CAPSULE PO ×2 (08:54→20:55)
[2022-07-10] MEDS: SENNOSIDES 8.6 MG TABLET PO ×2 (08:54→20:55)
[2022-07-10 08:55] VITALS: BP 129/71; PULSE 89; RESP 19; TEMP 36.2; O2SAT 96
[2022-07-10] MEDS: BISACODYL 10 MG SUPP PR (08:55)
[2022-07-10] MEDS: PHENAZOPYRIDINE 100 MG TABLET 200 MG PO ×3 (08:58→20:55)
[2022-07-10 09:00] VITALS: BP 120/70
[2022-07-10] MEDS: LOSARTAN 50 MG TABLET 100 MG PO (09:00)
[2022-07-10] MEDS: WATER FOR IRRIGATION STERILE IRR ×2 (09:18→20:56)
[2022-07-10] MEDS: [UNRECOGNIZED DRUG - OTHER] IRR ×2 (09:18→20:56)
--- NOTE | 2022-07-10 12:30 | PM.PN.1 ---
Subjective Subjective Date Patient Seen: 07/10/22 Time Patient Seen: 12:15 Interval history: The patient is hospital day 7 for management of gross hematuria and clot retention secondary to radiation cystitis. Alum continuous bladder irrigation has been received, prepared, and instituted over the last 48 hours. Requirement for catheter and irrigation has decreased. CT of pelvis without contrast 07/09/2022 demonstrated some residual debris within the bladder lumen and intact placement of the Hoffman. No other significant findings. Patient is in good spirits and reports no pain he is encouraged by the interval progress. He states that for the last 24 hours the outflow has been yellow to tea-colored and with associated alum clot sand. No fresh clots. Exam Vital Signs (past 8 hours): - 07/10/22 05:59 07/10/22 08:55 07/10/22 09:00 Temperature 96.5 F L 97.1 F L Pulse Rate 89 89 Respiratory Rate 19 19 Blood Pressure 120/70 129/71 120/70 Pulse Oximetry 97 96 Oxygen Flow Rate 0 Oxygen Delivery Method Room Air Oxygen Flow Rate 0 Narrative Exam Narrative: Well-developed moderately over nourished male resting comfortably in bed in no distress. Abdomen is round and protuberant. Soft. Nontender. Three-way Hoffman catheter indwelling with light tea-colored outflow no clots. Some alum sand seen in the tubing. Objective Labs Result Diagrams: 07/10/22 06:55 07/10/22 06:55 Labs: Laboratory Results - last 24 hr 07/10/22 07/10/22 06:55 06:55 WBC 8.2 RBC 2.82 L Hgb 9.6 L Hct 26.9 L MCV 95.4 MCH 34.2 H MCHC 35.8 RDW 13.2 Plt Count 266 Neut % (Auto) 68.6 Lymph % (Auto) 17.7 L [place] % (Auto) 10.2 Eos % (Auto) 2.6 Baso % (Auto) 0.9 Neut # (Auto) 5700 Lymph # (Auto) 1500 [place] # (Auto) 800 Eos # (Auto) 200 Baso # (Auto) 100 Sodium 130 L Potassium 3.6 Chloride 95 L Carbon Dioxide 28 BUN 18 Creatinine 0.84 Estimated GFR > 60 BUN/Creatinine Ratio 21.4 Glucose 107 H Calcium 8.4 PFSH Medical History Acquired contracture of bladder neck Diabetes mellitus with insulin therapy Elevated PSA Erectile dysfunction GERD (gastroesophageal reflux disease) Glucosuria Gross hematuria Hyperglycemia Hypertension Prostate cancer Prostate cancer Radiation cystitis Seasonal allergic rhinitis Surgical History H/O prostate biopsy H/O prostatectomy Status post appendectomy Family History Father Hypertension Mother Alzheimer's dementia Social History household members: spouse Smoking Status: Never smoker alcohol intake: current Assessment & Plan Assessment & Plan narrative: Assessment: 1. Gross hematuria and clot retention-improved on alum CBI. Plan: 1. Continue alum CBI. 2. Increase activity to ad lina ambulation. 3. Patient is scheduled to begin hyperbaric oxygen therapy in approximately 1 week. Hopefully we can trial catheter removal in the next 24-48 hours and he may be fit for discharge and return for outpatient HBO. Time Spent With Patient Critical Care time: I spent a total of [] minutes of critical care time on this patient's care today; this time is exclusive of procedural time. Quality VTE Deep Vein Thrombosis/Pulmonary Embolism Present on Admission: No
[2022-07-10 14:00] VITALS: BP 118/86; PULSE 110; RESP 18; TEMP 36.4; O2SAT 97
--- NOTE | 2022-07-10 14:59 | PC.NURSE ---
Addendum entered by Yamil Sierra R.N. 07/10/22 17:38: Lantus 40 units due at mealtime. RN brought ordered dose of 40 units to give to pt. Pt became agitated at staff nurse for dose, explaining 40 is too much for him and he needs only 22 units. Pt started turning lantus pen to 22 units. Rn tried to explain this is the ordered dose. Pt became more adamant that with 40 units is not right for him. Pt demanded he give himself insulin injection, 2 staff attorney checked 22 units of Lantus and gave himself the injection. Addendum entered by Yamil Sierra R.N. 07/10/22 16:17: Pt requested another irrigation. Original Note: Pt has Potassium alum CBI, has needed 3 manual irrigations so far. Urine ranges from orange to pink coloring. Dr saini for pt to walk around unit. Pt denies pain except for when irrigating nash. Pt helpful and cooperative with care.
[2022-07-10] MEDS: INSULIN GLARGINE 100 UNIT/ML 3ML PEN 40 UNIT SUBCUT (17:29)
[2022-07-10 20:04] VITALS: BP 126/72; PULSE 94; RESP 17; TEMP 36.2; O2SAT 97
[2022-07-10] MEDS: AMLODIPINE 5 MG TABLET 10 MG PO (20:55)
[2022-07-11] MEDS: BELLADONNA/OPIUM SUPPOSITORIES 1 EACH PR (03:33)
[2022-07-11 05:32] VITALS: BP 104/69; PULSE 87; RESP 16; TEMP 36.6; O2SAT 98
[2022-07-11 07:45] LABS: Add Manual Diff / Slide Review NO; Basophils Absolute Auto 200 /uL (0-100); Basophils Percent Auto 2.4 % (0-2); Eosinophils Absolute Auto 400 /uL (0-450); Eosinophils Percent Auto 4.1 % (2-4); Hematocrit 26.6 % (41-53); Hemoglobin 9.4 g/dL (13.5-17.5); Lymphocytes Absolute Auto 1700 /uL (1100-4500); Lymphocytes Percent Auto 17.1 % (25-40); Mean Corpuscular HGB Conc 35.5 % (30-36); Mean Corpuscular Hemoglobin 33.5 PG (26-34); Mean Corpuscular Volume 94.5 fL (80-100); Monocytes Absolute Auto 800 /uL (0-900); Monocytes Percent Auto 8.7 % (3-14); Neutrophils Absolute Auto 6600 /uL (1500-7000); Neutrophils Percent Auto 67.7 % (50-75); Platelet Count 240 X10^3/uL (150-400); Red Blood Cell Count 2.82 X10^6/uL (4.5-5.9); Red Cell Distribution Width 12.9 % (11.6-14.8); White Blood Cell Count 9.7 X10^3/uL (4.5-11.0)
--- NOTE | 2022-07-11 07:47 | P.PN_ITS ---
Subjective Subjective Date Patient Seen: 07/11/22 Time Patient Seen: 10:00 Interval history: Feeling well today and bleeding has slowed in nash quite a bit. Dr. Wong to remove catheter today and trail for 24 hours. Exam Vital Signs (past 8 hours): - 07/11/22 05:32 Temperature 97.9 F Pulse Rate 87 Respiratory Rate 16 Blood Pressure 104/69 Pulse Oximetry 98 Oxygen Flow Rate 0 Oxygen Delivery Method Room Air Oxygen Flow Rate 0 Narrative Exam Narrative: GEN:? Very pleasant middle-aged male, Alert and oriented x3, no acute distress HEENT:? Normocephalic, face symmetric CHEST:? Respiratory excursions symmetric, clear to auscultation bilaterally CV:? Regular rate and rhythm, no murmurs, rubs, gallops, PMI nondisplaced ABD:? Soft, nontender, nondistended, bowel sounds present in all 4 quadrants, no organomegaly or masses appreciated EXTR:? Warm, well perfused, no clubbing/cyanosis/edema SKIN:? Warm and dry, without rash NEURO:? Alert and oriented x3, grossly intact :? dark red urine noted in catheter bag, no visible clots Objective Labs Result Diagrams: 07/11/22 07:30 07/11/22 07:30 [facility] Medical History Acquired contracture of bladder neck Diabetes mellitus with insulin therapy Elevated PSA Erectile dysfunction GERD (gastroesophageal reflux disease) Glucosuria Gross hematuria Hyperglycemia Hypertension Prostate cancer Prostate cancer Radiation cystitis Seasonal allergic rhinitis Surgical History H/O prostate biopsy H/O prostatectomy Status post appendectomy Family History Father Hypertension Mother Alzheimer's dementia Social History household members: spouse Smoking Status: Never smoker alcohol intake: current Assessment & Plan Assessment & Plan narrative: 1. Insulin-dependent diabetes mellitus Good blood glucose control. He remains on his usual outpatient dose of Lantus 40 units subQ each evening, as well as metformin 1000 mg twice daily. He is back on a regular diet per his request. A1c 5.5%. Can dc ACHS glucose checks and sliding scale and go to BID checks. 2. Hypertension Blood pressures are overall well-controlled.? He remains on amlodipine 10 mg daily, hydrochlorothiazide 25 mg daily. 3. Radiation cystitis with hemorrhage Finished CBI with Alum on 07/11. Nash cath now removed by Dr. Wong and will trial without it for 24 hours. If patient tolerates will dc on 07/12 to pursue hyperbaric tx which he has scheduled as outpatient for 07/17. 4. Acute blood loss anemia Hemoglobin was 11.7 on admission.? Now down to 9's but stable. 5.? Constipation Continue senna and colace. 6. Acute bladder spasms Patient notes painful spasms. Has received vast relief on oxybutinin, azo and brandon marcelino suppository. Will titrate these down now that nash cath out. Code status Full Prophylaxis Chemical prophylaxis contraindicated in the setting of gross hematuria Disposition Per Urology, home on 07/12. Time Spent With Patient Critical Care time: I spent a total of [] minutes of critical care time on this patient's care t carlos; this time is exclusive of procedural time. Quality VTE Deep Vein Thrombosis/Pulmonary Embolism Present on Admission: No
[2022-07-11 08:17] LABS: BUN Creatinine Ratio 21.8 (6-22); Blood Urea Nitrogen 19 mg/dL (9-20); Calcium 8.2 mg/dL (8.4-10.2); Carbon Dioxide 23 mmol/L (22-32); Chloride 96 mmol/L (98-107); Estimated Glomerular Filt Rate > 60 mL/min (>60); Glucose 104 mg/dL (70-100); HEMOLYSIS 17 (0-50); Potassium 3.7 mmol/L (3.4-5.1); Sodium 126 mmol/L (137-145)
[2022-07-11] MEDS: SENNOSIDES 8.6 MG TABLET PO ×2 (08:43→21:45)
[2022-07-11] MEDS: OXYBUTYNIN 5 MG TABLET PO ×3 (08:43→16:42)
[2022-07-11] MEDS: DOCUSATE 100 MG CAPSULE PO ×2 (08:43→21:45)
[2022-07-11] MEDS: BISACODYL 10 MG SUPP PR (08:43)
[2022-07-11] MEDS: METFORMIN HCL 500 MG TABLET 1000 MG PO ×2 (08:43→16:42)
[2022-07-11 08:47] VITALS: BP 127/72; PULSE 94
[2022-07-11] MEDS: LOSARTAN 50 MG TABLET 100 MG PO (08:47)
[2022-07-11] MEDS: hydroCHLOROthiazide 25 MG TABLET PO (08:47)
[2022-07-11] MEDS: PHENAZOPYRIDINE 100 MG TABLET 200 MG PO ×2 (08:47→15:35)
--- NOTE | 2022-07-11 09:11 | PC.NURSE ---
Per Dr. Judith lunsford on nash to observe urine collection color and he will be up to see the pt today.
--- NOTE | 2022-07-11 12:47 | P.PN_ITS ---
Subjective Subjective Date Patient Seen: 07/11/22 Time Patient Seen: 12:52 Interval history: Hospital day 8 for gross hematuria and clot retention secondary to hemorrhagic cystitis. He continues to be a free of obstruction on alum irrigation. The inflow irrigant has been discontinued since about 9:30 a.m. today. There has been no evidence of any significant recurrent bleeding. He continues to report no significant pain other than mild catheter irritation. Exam Vital Signs (past 8 hours): - 07/11/22 05:32 07/11/22 08:47 Temperature 97.9 F Pulse Rate 87 94 H Respiratory Rate 16 Blood Pressure 104/69 127/72 Pulse Oximetry 98 Oxygen Flow Rate 0 Oxygen Delivery Method Room Air Oxygen Flow Rate 0 Narrative Exam Narrative: He sitting upright in bedside chair in no distress. Hoffman intact in outflow is clear yellow/orange (use of Pyridium), and a small amount of alum sand. Objective Labs Result Diagrams: 07/11/22 07:30 07/11/22 07:30 Labs: Laboratory Results - last 24 hr 07/11/22 07/11/22 07:30 07:30 WBC 9.7 RBC 2.82 L Hgb 9.4 L Hct 26.6 L MCV 94.5 MCH 33.5 MCHC 35.5 RDW 12.9 Plt Count 240 Neut % (Auto) 67.7 Lymph % (Auto) 17.1 L [place] % (Auto) 8.7 Eos % (Auto) 4.1 H Baso % (Auto) 2.4 H Neut # (Auto) 6600 Lymph # (Auto) 1700 [place] # (Auto) 800 Eos # (Auto) 400 Baso # (Auto) 200 H Sodium 126 L Potassium 3.7 Chloride 96 L Carbon Dioxide 23 BUN 19 Creatinine 0.87 Estimated GFR > 60 BUN/Creatinine Ratio 21.8 Glucose 104 H Calcium 8.2 L PFSH Medical History Acquired contracture of bladder neck Diabetes mellitus with insulin therapy Elevated PSA Erectile dysfunction GERD (gastroesophageal reflux disease) Glucosuria Gross hematuria Hyperglycemia Hypertension Prostate cancer Prostate cancer Radiation cystitis Seasonal allergic rhinitis Surgical History H/O prostate biopsy H/O prostatectomy Status post appendectomy Family History Father Hypertension Mother Alzheimer's dementia Social History household members: spouse Smoking Status: Never smoker alcohol intake: current Assessment & Plan Assessment & Plan narrative: Assessment: 1. Gross hematuria and clot retention secondary to radiation cystitis-improved Plan: 1. Discontinue Hoffman catheter and observe for voiding dysfunction or recurrent hematuria. 2. Obtain midstream urine specimen from 1st void following catheter removal. 3. Begin Cipro 250 mg p.o. b.i.d. for catheter removal prophylaxis pending post catheter removal culture. 4. Anticipate initiation of hyperbaric chamber therapy in approximately 1 week. Time Spent With Patient Critical Care time: I spent a total of [] minutes of critical care time on this patient's care today; this time is exclusive of procedural time. Quality VTE Deep Vein Thrombosis/Pulmonary Embolism Present on Admission: No
--- NOTE | 2022-07-11 13:28 | PC.NURSE ---
12:54 Day shift- nash catheter removed per Dr. Wong, nash intact upon removal. Pt tolerated nash catheter removal well and denied pain.
[2022-07-11 13:52] VITALS: BP 133/71; PULSE 85; RESP 17; TEMP 35.8; O2SAT 98
[2022-07-11 14:30] LABS: Appearance Urine UA CLOUDY
[2022-07-11 14:31] LABS: Color Urine UA ORANGE
[2022-07-11 14:41] LABS: Bacteria Urine None Seen; Culture Indicated Urine Cult Not Indicated; RBC Urine >100/HPF (0-5/HPF); Squamous Epithelial Cell Urine None Seen (0-5/HPF); WBC Urine 1-5/HPF (0-5/HPF)
[2022-07-11] MEDS: INSULIN GLARGINE 100 UNIT/ML 3ML PEN 40 UNIT SUBCUT (16:52)
--- NOTE | 2022-07-11 18:51 | PC.NURSE ---
Day shift: Pt urinated 1,450 mls orange urine with sediment since nash catheter removal at 12:54, pt taking pyridium. Pt states, few bladder spasms and burning with urination.
[2022-07-11 19:15] VITALS: BP 138/76; PULSE 91; RESP 18; TEMP 36.6; O2SAT 97
[2022-07-11] MEDS: CIPROFLOXACIN 250 MG TABLET PO (21:45)
[2022-07-11] MEDS: AMLODIPINE 5 MG TABLET 10 MG PO (21:45)
[2022-07-12] MEDS: BELLADONNA/OPIUM SUPPOSITORIES 1 EACH PR (05:31)
[2022-07-12] MEDS: CIPROFLOXACIN 250 MG TABLET PO (05:37)
--- NOTE | 2022-07-12 08:09 | PM.PN.1 ---
Subjective Subjective Date Patient Seen: 07/12/22 Time Patient Seen: 12:53 Interval history: Had some clots overnight but none now for 12 hours. Exam Vital Signs (past 8 hours): Oxygen Delivery Method Room Air Oxygen Flow Rate 0 Narrative Exam Narrative: GEN:? Very pleasant middle-aged male, Alert and oriented x3, no acute distress HEENT:? Normocephalic, face symmetric CHEST:? Respiratory excursions symmetric, clear to auscultation bilaterally CV:? Regular rate and rhythm, no murmurs, rubs, gallops, PMI nondisplaced ABD:? Soft, nontender, nondistended, bowel sounds present in all 4 quadrants, no organomegaly or masses appreciated EXTR:? Warm, well perfused, no clubbing/cyanosis/edema SKIN:? Warm and dry, without rash NEURO:? Alert and oriented x3, grossly intact :? dark red urine noted in catheter bag, no visible clots Objective Labs Result Diagrams: 07/12/22 08:10 07/12/22 08:10 Labs: Laboratory Results - last 24 hr 07/11/22 07/11/22 07/11/22 07:30 07:30 14:23 WBC 9.7 RBC 2.82 L Hgb 9.4 L Hct 26.6 L MCV 94.5 MCH 33.5 MCHC 35.5 RDW 12.9 Plt Count 240 Neut % (Auto) 67.7 Lymph % (Auto) 17.1 L [place] % (Auto) 8.7 Eos % (Auto) 4.1 H Baso % (Auto) 2.4 H Neut # (Auto) 6600 Lymph # (Auto) 1700 [place] # (Auto) 800 Eos # (Auto) 400 Baso # (Auto) 200 H Sodium 126 L Potassium 3.7 Chloride 96 L Carbon Dioxide 23 BUN 19 Creatinine 0.87 Estimated GFR > 60 BUN/Creatinine Ratio 21.8 Glucose 104 H Calcium 8.2 L Urine Color [place] Urine Appearance Cloudy Urine pH TNP Ur Specific [place] TNP Urine Protein TNP Urine Glucose (UA) TNP Urine Ketones TNP Urine Occult Blood TNP Urine Nitrate TNP Urine Bilirubin TNP Urine Urobilinogen TNP Ur Leukocyte Esterase TNP Urine RBC >100/hpf H Urine WBC 1-5/hpf Ur Squamous Epith Cells None seen Urine Bacteria None seen Ur Culture Indicated? Cult not indicated PFSH Medical History Acquired contracture of bladder neck Diabetes mellitus with insulin therapy Elevated PSA Erectile dysfunction GERD (gastroesophageal reflux disease) Glucosuria Gross hematuria Hyperglycemia Hypertension Prostate cancer Prostate cancer Radiation cystitis Seasonal allergic rhinitis Surgical History H/O prostate biopsy H/O prostatectomy Status post appendectomy Family History Father Hypertension Mother Alzheimer's dementia Social History household members: spouse Smoking Status: Never smoker alcohol intake: current Assessment & Plan Assessment & Plan narrative: 1. Insulin-dependent diabetes mellitus Good blood glucose control. He remains on his usual outpatient dose of Lantus 40 units subQ each evening, as well as metformin 1000 mg twice daily. He is back on a regular diet per his request. A1c 5.5%. Can dc ACHS glucose checks and sliding scale and go to BID checks. 2. Hypertension Blood pressures are overall well-controlled.? He remains on amlodipine 10 mg daily, hydrochlorothiazide 25 mg daily. 3. Radiation cystitis with hemorrhage Finished CBI with Alum on 07/11. Nash cath now removed by Dr. Wong and will trial without it for 24 hours. If patient tolerates will dc on 07/12 to pursue hyperbaric tx which he has scheduled as outpatient for 07/17. 4. Acute blood loss anemia Hemoglobin was 11.7 on admission.? Now down to 9's but stable. 5.? Constipation Continue senna and colace. 6. Acute bladder spasms Patient notes painful spasms. Has received vast relief on oxybutinin, azo and brandon marcelino suppository. Will titrate these down now that nash cath out. Code status Full Prophylaxis Chemical prophylaxis contraindicated in the setting of gross hematuria Disposition Home today 07/12. Medicine will sign off today. Thank you for allowing us to participate in the care of this patient. Should you have any further questions, do not hesitate to speak with us directly or call us. Time Spent With Patient Critical Care time: I spent a total of [] minutes of critical care time on this patient's care today; this time is exclusive of procedural time. Quality VTE Deep Vein Thrombosis/Pulmonary Embolism Present on Admission: No
[2022-07-12 08:33] LABS: Add Manual Diff / Slide Review NO; Basophils Absolute Auto 100 /uL (0-100); Basophils Percent Auto 1.4 % (0-2); Eosinophils Absolute Auto 300 /uL (0-450); Eosinophils Percent Auto 4.7 % (2-4); Hematocrit 24.4 % (41-53); Hemoglobin 8.8 g/dL (13.5-17.5); Lymphocytes Absolute Auto 1000 /uL (1100-4500); Lymphocytes Percent Auto 15.8 % (25-40); Mean Corpuscular HGB Conc 35.8 % (30-36); Mean Corpuscular Hemoglobin 33.6 PG (26-34); Mean Corpuscular Volume 93.8 fL (80-100); Monocytes Absolute Auto 600 /uL (0-900); Neutrophils Absolute Auto 4300 /uL (1500-7000); Neutrophils Percent Auto 69.1 % (50-75); Platelet Count 285 X10^3/uL (150-400); Red Blood Cell Count 2.61 X10^6/uL (4.5-5.9); Red Cell Distribution Width 12.7 % (11.6-14.8); White Blood Cell Count 6.2 X10^3/uL (4.5-11.0)
[2022-07-12 08:48] LABS: BUN Creatinine Ratio 17.4 (6-22); Blood Urea Nitrogen 15 mg/dL (9-20); Calcium 8.2 mg/dL (8.4-10.2); Carbon Dioxide 23 mmol/L (22-32); Chloride 94 mmol/L (98-107); Estimated Glomerular Filt Rate > 60 mL/min (>60); Glucose 99 mg/dL (70-100); HEMOLYSIS < 15 (0-50); Potassium 3.7 mmol/L (3.4-5.1); Sodium 125 mmol/L (137-145)
[2022-07-12] MEDS: METFORMIN HCL 500 MG TABLET 1000 MG PO (09:00)
[2022-07-12 09:04] VITALS: BP 144/77; PULSE 78
[2022-07-12] MEDS: BISACODYL 10 MG SUPP PR (09:04)
[2022-07-12] MEDS: DOCUSATE 100 MG CAPSULE PO (09:04)
[2022-07-12] MEDS: hydroCHLOROthiazide 25 MG TABLET PO (09:04)
[2022-07-12] MEDS: LOSARTAN 50 MG TABLET 100 MG PO (09:04)
[2022-07-12] MEDS: SENNOSIDES 8.6 MG TABLET PO (09:04)
[2022-07-12] MEDS: PHENAZOPYRIDINE 100 MG TABLET 200 MG PO (09:10)
[2022-07-12] MEDS: SODIUM CHLORIDE 1,000 MG TABLET 1000 MG PO (09:18)
--- NOTE | 2022-07-12 12:46 | PM.DS.1 ---
History of Present Illness History of Present Illness Date Patient Seen: 07/12/22 Time Patient Seen: 12:46 Chief complaint: URINARY ISSUE FLARE UP Narrative: Roger is a 57-year-old gentleman with history of GROUP 5, pT2, N0 FINE SANDER status post radical prostatectomy 10/31/2019, and postop prostate fossa and pelvic radiation completed in 2019. The patient is status post cystoscopy and visual urethrotomy on 06/09/2022 for treatment of radiation induced bladder neck contracture. Recent endoscopic evaluations have confirmed diagnosis of radiation cystitis. He began having intermittent small bouts of bleeding 2-3 months ago. Evaluation led to the diagnosis of bladder neck contracture for which he underwent cold knife incision last month. The patient presented to [facility] ED on 07/02/2022, with a 2 day complaint of intermittent clot passage. Irrigation catheter was passed and after 2 L of irrigation the bleeding apparently ceased and the outflow was clear. I did not find documentation of any attempts to hand irrigate. ED provider contacted Urology on-call and was instructed to remove the catheter at that point with follow-up directed to contact Urology Clinic on 07/03/2022. However the patient return later in the evening with complaints of recurrent bleeding. The patient was reluctant to be discharged home with indwelling catheter and was irrigated over the next several hours with gravity CBI. Report was at the outflow would remain relatively clear very light pink when a low drip to moderate drip was applied but would become red again upon discontinuation. The patient remained in the ED apparently until I came coordinator of rehabilitation services it 7:00 a.m. 07/03/2022. I was actually contacted by the ED while in the operating room and the patient is seen in between cases. Discharge Providers Provider Date of admission: 07/03/22 20:38 Discharge Date: 07/12/22 Primary care physician: Damaso Houston DO Consults: 07/03/22 21:43 Consult to Debt Recovery Officer Routine Comment: Discharge provider: Patricia Wong MD Summary Hospital Course Discharge Diagnosis: 1. Gross hematuria. 2. Clot retention. 3. Radiation cystitis. Hospital Course: The patient was admitted through the ED on 07/03/2022 for further management of gross hematuria and clot retention secondary to radiation cystitis. Degree and frequency of bleeding was not significantly improved on normal saline continuous bladder irrigation with and without tranexamic acid. Consultation by Dr. Jaime Goldberg, director of the wound clinic was requested during the patient's hospitalization. Much conversation, planning, and coordination were conducted to make initial arrangements for initiation of hyperbaric oxygen chamber treatment, which must be done in the outpatient setting, and must be done when patient not on irrigation. Much conversation, planning, and coordinated efforts with inpatient pharmacy undertaken to secure a supply of alum, for alum irrigation. The supplied did not arrive until 07/08/2022, at which time irrigation was begun. Within 24 hours outflow improved greatly with evidence of chemical coagulation. On 07/10/2022 irrigation inflow was discontinued and outflow observed. The Hoffman catheter was removed proximally 24 hours ago and thereafter the patient has been able to void without recurrent obstruction. His initial to voided volumes per his report did have visible blood. Outflow is remain clear since approximately 1999 last evening. A 1st void urine specimen for culture and sensitivity shows no indicators of hospital-acquired UTI. Culture was not indicated. CT of pelvis without contrast 07/09/2022. revealed some retained clot material. I hand irrigated the catheter at the bedside to clear on 07/10/2022. On the morning of 07/12/2022 the patient was stable for discharge. Exam Vital Signs (past 8 hours): - 07/12/22 09:04 Pulse Rate 78 Blood Pressure 144/77 H Oxygen Delivery Method Room Air Oxygen Flow Rate 0 Narrative Exam Narrative: The patient is sitting up right in bed and in no acute distress. Abdomen round and protuberant. No tenderness. Objective Labs Result Diagrams: 07/12/22 08:10 07/12/22 08:10 Labs: Laboratory Results - last 24 hr 07/11/22 07/12/22 07/12/22 14:23 08:10 08:10 WBC 6.2 RBC 2.61 L Hgb 8.8 L Hct 24.4 L MCV 93.8 MCH 33.6 MCHC 35.8 RDW 12.7 Plt Count 285 Neut % (Auto) 69.1 Lymph % (Auto) 15.8 L [place] % (Auto) 9.0 Eos % (Auto) 4.7 H Baso % (Auto) 1.4 Neut # (Auto) 4300 Lymph # (Auto) 1000 L [place] # (Auto) 600 Eos # (Auto) 300 Baso # (Auto) 100 Sodium 125 L Potassium 3.7 Chloride 94 L Carbon Dioxide 23 BUN 15 Creatinine 0.86 Estimated GFR > 60 BUN/Creatinine Ratio 17.4 Glucose 99 Calcium 8.2 L Urine Color [place] Urine Appearance Cloudy Urine pH TNP Ur Specific [place] TNP Urine Protein TNP Urine Glucose (UA) TNP Urine Ketones TNP Urine Occult Blood TNP Urine Nitrate TNP Urine Bilirubin TNP Urine Urobilinogen TNP Ur Leukocyte Esterase TNP Urine RBC >100/hpf H Urine WBC 1-5/hpf Ur Squamous Epith Cells None seen Urine Bacteria None seen Ur Culture Indicated? Cult not indicated PFSH Medical History Acquired contracture of bladder neck Diabetes mellitus with insulin therapy Elevated PSA Erectile dysfunction GERD (gastroesophageal reflux disease) Glucosuria Gross hematuria Hyperglycemia Hypertension Prostate cancer Prostate cancer Radiation cystitis Seasonal allergic rhinitis Surgical History H/O prostate biopsy H/O prostatectomy Status post appendectomy Family History Father Hypertension Mother Alzheimer's dementia Social History household members: spouse Smoking Status: Never smoker alcohol intake: current Discharge Assessment & Plan Assessment and Plan Assessment: 1. Radiation cystitis with secondary gross hematuria and clot retention-improved. 2. History of high-volume, high-grade adenocarcinoma the prostate. Plan of Treatment: 1. Discharge home today. 2. The patient is tentatively scheduled to begin HBO and the next 5-7 days pending insurance authorization which has been submitted. 3. Patient will follow-up in Urology Clinic as previously scheduled in August 2022 with PSA, PVR, and repeat Eligard administration, or as needed. Discharge Plan Discharge Plan Patient Disposition: Home Discharge orders & Medications Prescriptions: New oxybutynin chloride [Ditropan XL] 5 mg tablet extended release 24hr 5 mg PO DAILY Qty: 90 3RF Continued Lantus Solostar U-100 Insulin 100 unit/mL (3 mL) insulin pen 40 unit SUBCUT QPM Qty: 36 3RF metformin 1,000 mg tablet 1,000 mg PO BID Qty: 180 3RF omeprazole 20 mg capsule,delayed release(DR/EC) 20 mg PO Q DAY Qty: 90 3RF olopatadine 0.1 % drops See Rx Instructions .ROUTE .COMPLEX Qty: 25 2RF Dose Instruction: Place 1 drop in each eye twice daily Rx Instructions: Place 1 drop in each eye twice daily fluticasone propionate [Flonase Allergy Relief] 50 mcg/actuation spray,suspension 2 spray intranasal DAILY Qty: 48 1RF Rx Instructions: administer into each nostril Pt needs appt w/provider for further refills. amlodipine 10 mg tablet 10 mg PO DAILY Rx Instructions: Morning hydrochlorothiazide 25 mg tablet 25 mg PO DAILY losartan 100 mg tablet 100 mg PO DAILY Rx Instructions: evening megestrol 20 mg tablet 20 mg PO BID Rx Instructions: Take 1 tablet by mouth twice daily Trulicity 1.5 mg/0.5 mL Pen Injector 1.5 mg SUBCUT QWEEK Prolia 60 mg/mL syringe 60 mg SUBCUT [id number] Qty: 1 0RF Follow up/Referrals: Damaso Houston DO [Primary Care Provider] - Diet/Activity/Treatments Diet: Diet as Tolerated Activity: No lifting greater than 15 lb x 6 weeks. Skin/Wound/Dressing Care Report to your healthcare provider any signs of infection, such as:: chills, fever, night sweats, increased pain and unusual drainage Discharge Data Primary Care Provider: Damaso Houston Quality VTE Deep Vein Thrombosis/Pulmonary Embolism Present on Admission: No
--- NOTE | 2022-07-12 14:20 | PC.NURSE ---
Pt received this a.m. A&OX3, sitting up in chair. He denies pain but reports some discomfort to urethra itching and cramping Medicated with scheduled medications and prn pyridium. Pt is evaluated by hospitalist and cleared for medical discharge. MD Wong notified and arrived to evaluate patient and discharge patient home early this afternoon. Pt is voiding without difficulty and denies hematuria this a.m. Pt verbalizes understanding of discharge medications,activity, diet, s/sx of worsening symptoms and what to do as well as follow up care and plan for hyper baric chamber. Pt is escorted with all of his belonings to his private vehicle for discharge home this afternoon at 1400.
== END 2022-07-12 14:00 | disposition home or self-care (01) | DRG 699 ==
LOC: ED 07-03 07:02 → AC 07-04 09:01
PROVIDERS: Emergency Medicine; Family Medicine; Neuromusculoskeletal Medicine, Sports Medicine; Student in an Organized Health Care Education/Training Program; Admitting Provider Specialist; Emergency Provider Emergency Medicine; PCP Family Medicine; Visit Provider Specialist
DX: N30.41 Irradiation cystitis with hematuria (principal); D62 Acute posthemorrhagic anemia; K21.9 Gastro-esophageal reflux disease without esophagitis; E11.9 Type 2 diabetes mellitus without complications; I10 Essential (primary) hypertension; K59.00 Constipation, unspecified; N32.89 Other specified disorders of bladder; J30.9 Allergic rhinitis, unspecified; Z85.46 Personal history of malignant neoplasm of prostate; Z79.899 Other long term (current) drug therapy; Z20.822 Contact with and (suspected) exposure to COVID-19; Z79.84 Long term (current) use of oral hypoglycemic drugs; Z79.4 Long term (current) use of insulin
CPT/HCPCS: 36415; 51700; 71046; 72192; 80048; 80053; 81001; 82962; 83036; 85014; 85018; 85025; 87086; 87635; 96365; 96372; 96375; 96376; 99222; 99232; 99238; 99282; 99283; 99284; C9803; J1815; J1885

== ENCOUNTER → 2022-07-18 13:23 | Outpatient (CLI) | payer OTHER, SELFPAY ==
[2022-07-03 21:24] VITALS: BMI 30.4
== END ==
PROVIDERS: PCP Family Medicine; Referring Provider Specialist; Visit Provider Family Medicine
DX: L59.8 Other specified disorders of the skin and subcutaneous tissue related to radiation (principal); N30.41 Irradiation cystitis with hematuria
CPT/HCPCS: 99183; G0277

== ENCOUNTER → 2022-07-19 13:24 | Outpatient (CLI) | payer OTHER, SELFPAY ==
[2022-07-03 21:24] VITALS: BMI 30.4
== END ==
PROVIDERS: PCP Family Medicine; Referring Provider Specialist; Visit Provider Family Medicine
DX: L59.8 Other specified disorders of the skin and subcutaneous tissue related to radiation (principal); N30.41 Irradiation cystitis with hematuria
CPT/HCPCS: 99183; G0277

== ENCOUNTER → 2022-07-20 15:28 | Outpatient (CLI) | payer OTHER, SELFPAY ==
[2022-07-03 21:24] VITALS: BMI 30.4
== END ==
PROVIDERS: PCP Family Medicine; Referring Provider Specialist; Visit Provider Family Medicine
DX: L59.8 Other specified disorders of the skin and subcutaneous tissue related to radiation (principal); N30.41 Irradiation cystitis with hematuria
CPT/HCPCS: 99183; G0277

== ENCOUNTER → 2022-07-21 11:13 | Outpatient (CLI) | payer OTHER, SELFPAY ==
[2022-07-03 21:24] VITALS: BMI 30.4
== END ==
PROVIDERS: PCP Family Medicine; Referring Provider Specialist; Visit Provider Nurse Practitioner Family
DX: L59.8 Other specified disorders of the skin and subcutaneous tissue related to radiation (principal); N30.41 Irradiation cystitis with hematuria
CPT/HCPCS: 99183; G0277

== ENCOUNTER → 2022-07-24 14:05 | Outpatient (CLI) | payer OTHER, SELFPAY ==
[2022-07-03 21:24] VITALS: BMI 30.4
== END ==
PROVIDERS: PCP Family Medicine; Referring Provider Family Medicine; Visit Provider Family Medicine
DX: L59.8 Other specified disorders of the skin and subcutaneous tissue related to radiation (principal); N30.41 Irradiation cystitis with hematuria
CPT/HCPCS: 99183; G0277

== ENCOUNTER → 2022-07-25 13:26 | Outpatient (CLI) | payer OTHER, SELFPAY ==
[2022-07-03 21:24] VITALS: BMI 30.4
== END ==
PROVIDERS: PCP Family Medicine; Referring Provider Specialist; Visit Provider Family Medicine
DX: L59.8 Other specified disorders of the skin and subcutaneous tissue related to radiation (principal); N30.41 Irradiation cystitis with hematuria
CPT/HCPCS: 99183; G0277

== ENCOUNTER → 2022-07-26 14:48 | Outpatient (CLI) | payer OTHER, SELFPAY ==
[2022-07-03 21:24] VITALS: BMI 30.4
== END ==
PROVIDERS: PCP Family Medicine; Referring Provider Family Medicine; Visit Provider Family Medicine
DX: L59.8 Other specified disorders of the skin and subcutaneous tissue related to radiation (principal); N30.41 Irradiation cystitis with hematuria
CPT/HCPCS: 99183; G0277

== ENCOUNTER → 2022-07-27 14:59 | Outpatient (CLI) | payer OTHER, SELFPAY ==
[2022-07-03 21:24] VITALS: BMI 30.4
== END ==
PROVIDERS: PCP Family Medicine; Referring Provider Family Medicine; Visit Provider Family Medicine
DX: N30.41 Irradiation cystitis with hematuria (principal); L59.8 Other specified disorders of the skin and subcutaneous tissue related to radiation
CPT/HCPCS: 99183; G0277

== ENCOUNTER → 2022-07-28 14:17 | Outpatient (CLI) | payer OTHER, SELFPAY ==
[2022-07-03 21:24] VITALS: BMI 30.4
== END ==
PROVIDERS: PCP Family Medicine; Referring Provider Specialist; Visit Provider Nurse Practitioner Family
DX: N30.41 Irradiation cystitis with hematuria (principal); L59.8 Other specified disorders of the skin and subcutaneous tissue related to radiation
CPT/HCPCS: 99183; G0277

== ENCOUNTER → 2022-07-31 14:08 | Outpatient (CLI) | payer OTHER, SELFPAY ==
[2022-07-03 21:24] VITALS: BMI 30.4
== END ==
PROVIDERS: PCP Family Medicine; Referring Provider Specialist; Visit Provider Family Medicine
DX: L59.8 Other specified disorders of the skin and subcutaneous tissue related to radiation (principal); N30.41 Irradiation cystitis with hematuria
CPT/HCPCS: 99183; G0277

== ENCOUNTER → 2022-08-01 13:35 | Outpatient (CLI) | payer OTHER, SELFPAY ==
[2022-07-03 21:24] VITALS: BMI 30.4
== END ==
PROVIDERS: PCP Family Medicine; Referring Provider Specialist; Visit Provider Family Medicine
DX: L59.8 Other specified disorders of the skin and subcutaneous tissue related to radiation (principal); N30.41 Irradiation cystitis with hematuria
CPT/HCPCS: 99183; G0277

== ENCOUNTER → 2022-08-02 13:09 | Outpatient (CLI) | payer OTHER, SELFPAY ==
[2022-07-03 21:24] VITALS: BMI 30.4
== END ==
PROVIDERS: PCP Family Medicine; Referring Provider Specialist; Visit Provider Family Medicine
DX: L59.8 Other specified disorders of the skin and subcutaneous tissue related to radiation (principal); N30.41 Irradiation cystitis with hematuria
CPT/HCPCS: 99183; G0277

== ENCOUNTER → 2022-08-03 14:34 | Outpatient (CLI) | payer OTHER, SELFPAY ==
[2022-07-03 21:24] VITALS: BMI 30.4
== END ==
PROVIDERS: PCP Family Medicine; Referring Provider Specialist; Visit Provider Family Medicine
DX: L59.8 Other specified disorders of the skin and subcutaneous tissue related to radiation (principal); N30.41 Irradiation cystitis with hematuria
CPT/HCPCS: 99183; G0277

== ENCOUNTER → 2022-08-04 13:57 | Outpatient (CLI) | payer OTHER, SELFPAY ==
[2022-07-03 21:24] VITALS: BMI 30.4
== END ==
PROVIDERS: PCP Family Medicine; Referring Provider Specialist; Visit Provider Nurse Practitioner Family
DX: L59.8 Other specified disorders of the skin and subcutaneous tissue related to radiation (principal); N30.41 Irradiation cystitis with hematuria
CPT/HCPCS: 99183; G0277

== ENCOUNTER → 2022-08-07 14:16 | Outpatient (CLI) | payer OTHER, SELFPAY ==
[2022-07-03 21:24] VITALS: BMI 30.4
== END ==
PROVIDERS: PCP Family Medicine; Referring Provider Specialist; Visit Provider Family Medicine
DX: L59.8 Other specified disorders of the skin and subcutaneous tissue related to radiation (principal); N30.41 Irradiation cystitis with hematuria
CPT/HCPCS: 99183; G0277

== ENCOUNTER → 2022-08-08 13:47 | Outpatient (CLI) | payer OTHER, SELFPAY ==
[2022-07-03 21:24] VITALS: BMI 30.4
== END ==
PROVIDERS: PCP Family Medicine; Referring Provider Family Medicine; Visit Provider Family Medicine
DX: L59.8 Other specified disorders of the skin and subcutaneous tissue related to radiation (principal); N30.41 Irradiation cystitis with hematuria
CPT/HCPCS: 99183; G0277

== ENCOUNTER → 2022-08-09 14:08 | Outpatient (CLI) | payer OTHER, SELFPAY ==
[2022-07-03 21:24] VITALS: BMI 30.4
== END ==
PROVIDERS: PCP Family Medicine; Referring Provider Specialist; Visit Provider Family Medicine
DX: L59.8 Other specified disorders of the skin and subcutaneous tissue related to radiation (principal); N30.41 Irradiation cystitis with hematuria
CPT/HCPCS: 99183; G0277

== ENCOUNTER → 2022-08-10 15:06 | Outpatient (CLI) | payer OTHER, SELFPAY ==
[2022-07-03 21:24] VITALS: BMI 30.4
== END ==
PROVIDERS: PCP Family Medicine; Referring Provider Family Medicine; Visit Provider Family Medicine
DX: L59.8 Other specified disorders of the skin and subcutaneous tissue related to radiation (principal); N30.41 Irradiation cystitis with hematuria
CPT/HCPCS: 99183; G0277

== ENCOUNTER → 2022-08-11 13:49 | Outpatient (CLI) | payer OTHER, SELFPAY ==
[2022-07-03 21:24] VITALS: BMI 30.4
== END ==
PROVIDERS: PCP Family Medicine; Referring Provider Specialist; Visit Provider Nurse Practitioner Family
DX: N30.41 Irradiation cystitis with hematuria (principal); L59.8 Other specified disorders of the skin and subcutaneous tissue related to radiation
CPT/HCPCS: 99183; G0277

== ENCOUNTER → 2022-08-14 13:07 | Outpatient (CLI) | payer OTHER, SELFPAY ==
[2022-07-03 21:24] VITALS: BMI 30.4
== END ==
PROVIDERS: PCP Family Medicine; Referring Provider Specialist; Visit Provider Family Medicine
DX: L59.8 Other specified disorders of the skin and subcutaneous tissue related to radiation (principal); N30.41 Irradiation cystitis with hematuria
CPT/HCPCS: 99183; 99211; 99213; G0277

== ENCOUNTER → 2022-08-15 10:08 | Outpatient (CLI) | payer OTHER, SELFPAY ==
[2022-07-03 21:24] VITALS: BMI 30.4
[2022-08-15 11:30] LABS: Prostate Specific Antigen < 0.064 ng/mL (0.10-4.00)
== END ==
PROVIDERS: PCP Family Medicine; Referring Provider Specialist; Visit Provider Specialist
DX: C61 Malignant neoplasm of prostate (principal); N30.40 Irradiation cystitis without hematuria; R31.0 Gross hematuria
CPT/HCPCS: 36415; 84153

== ENCOUNTER → 2022-08-15 13:50 | Outpatient (CLI) | payer OTHER, SELFPAY ==
[2022-07-03 21:24] VITALS: BMI 30.4
== END ==
PROVIDERS: PCP Family Medicine; Referring Provider Specialist; Visit Provider Family Medicine
DX: N30.41 Irradiation cystitis with hematuria (principal); L59.8 Other specified disorders of the skin and subcutaneous tissue related to radiation
CPT/HCPCS: 99183; G0277

== ENCOUNTER → 2022-08-16 13:52 | Outpatient (CLI) | payer OTHER, SELFPAY ==
[2022-07-03 21:24] VITALS: BMI 30.4
== END ==
PROVIDERS: PCP Family Medicine; Referring Provider Internal Medicine Cardiovascular Disease; Visit Provider Family Medicine
DX: L59.8 Other specified disorders of the skin and subcutaneous tissue related to radiation (principal); N30.41 Irradiation cystitis with hematuria; C61 Malignant neoplasm of prostate; N30.40 Irradiation cystitis without hematuria; N32.0 Bladder-neck obstruction
CPT/HCPCS: 51798; 81002; 96402; 99183; 99215; G0277; J9217

== ENCOUNTER → 2022-08-17 12:59 | Outpatient (CLI) | payer OTHER, SELFPAY ==
[2022-07-03 21:24] VITALS: BMI 30.4
== END ==
PROVIDERS: PCP Family Medicine; Referring Provider Specialist; Visit Provider Family Medicine
DX: N30.41 Irradiation cystitis with hematuria (principal); L59.8 Other specified disorders of the skin and subcutaneous tissue related to radiation
CPT/HCPCS: 99183; G0277

== ENCOUNTER → 2022-08-18 13:09 | Outpatient (CLI) | payer OTHER, SELFPAY ==
[2022-07-03 21:24] VITALS: BMI 30.4
== END ==
PROVIDERS: PCP Family Medicine; Referring Provider Specialist; Visit Provider Family Medicine
DX: N30.41 Irradiation cystitis with hematuria (principal); L59.8 Other specified disorders of the skin and subcutaneous tissue related to radiation
CPT/HCPCS: 99183; G0277

== ENCOUNTER → 2022-08-21 13:19 | Outpatient (CLI) | payer OTHER, SELFPAY ==
[2022-07-03 21:24] VITALS: BMI 30.4
== END ==
PROVIDERS: PCP Family Medicine; Referring Provider Specialist; Visit Provider Family Medicine
DX: N30.41 Irradiation cystitis with hematuria (principal); L59.8 Other specified disorders of the skin and subcutaneous tissue related to radiation
CPT/HCPCS: 99183; G0277

== ENCOUNTER → 2022-08-22 14:01 | Outpatient (CLI) | payer OTHER, SELFPAY ==
[2022-07-03 21:24] VITALS: BMI 30.4
== END ==
PROVIDERS: PCP Family Medicine; Referring Provider Specialist; Visit Provider Family Medicine
DX: L59.8 Other specified disorders of the skin and subcutaneous tissue related to radiation (principal); N30.41 Irradiation cystitis with hematuria
CPT/HCPCS: 99183; G0277

== ENCOUNTER → 2022-08-23 12:57 | Outpatient (CLI) | payer OTHER, SELFPAY ==
[2022-07-03 21:24] VITALS: BMI 30.4
== END ==
PROVIDERS: PCP Family Medicine; Referring Provider Specialist; Visit Provider Family Medicine
DX: L59.8 Other specified disorders of the skin and subcutaneous tissue related to radiation (principal); N30.41 Irradiation cystitis with hematuria
CPT/HCPCS: 99183; G0277

== ENCOUNTER → 2022-08-24 13:27 | Outpatient (CLI) | payer OTHER, SELFPAY ==
[2022-07-03 21:24] VITALS: BMI 30.4
== END ==
PROVIDERS: PCP Family Medicine; Referring Provider Specialist; Visit Provider Family Medicine
DX: L59.8 Other specified disorders of the skin and subcutaneous tissue related to radiation (principal); N30.41 Irradiation cystitis with hematuria
CPT/HCPCS: 99183; G0277

== ENCOUNTER → 2022-08-25 14:23 | Outpatient (CLI) | payer OTHER, SELFPAY ==
[2022-07-03 21:24] VITALS: BMI 30.4
== END ==
PROVIDERS: PCP Family Medicine; Referring Provider Specialist; Visit Provider Nurse Practitioner Family
DX: N30.41 Irradiation cystitis with hematuria (principal)
CPT/HCPCS: 99183; G0277

== ENCOUNTER → 2022-08-28 14:14 | Outpatient (CLI) | payer OTHER, SELFPAY ==
[2022-07-03 21:24] VITALS: BMI 30.4
== END ==
PROVIDERS: PCP Family Medicine; Referring Provider Specialist; Visit Provider Family Medicine
DX: L59.8 Other specified disorders of the skin and subcutaneous tissue related to radiation (principal); N30.41 Irradiation cystitis with hematuria
CPT/HCPCS: 99183; G0277

== ENCOUNTER 2022-10-30 10:30 | Outpatient (RCR) | payer OTHER, SELFPAY ==
[2022-07-03 21:24] VITALS: BMI 30.4
--- NOTE | 2022-09-29 12:00 | PT.OPPOC ---
Physical, Occupational & Speech Therapy At [facility] Current Diagnoses Malignant neoplasm of prostate (09/29/22) Bladder-neck obstruction (09/29/22) Stress incontinence (female) (male) (09/29/22) Visit Care Team Role Provider Type Damaso Houston DO Family Provider Physician Primary Care Provider Specialty: Family Practice Address: [address] [place] [address], [id number] Email: [email or web address] Patricia Wong MD Attending Provider Physician Referring Provider Specialty: Urology Address: [address] [place] [address], [id number] Email: Plan Of Care PT-OP-T Assessment and Plan Start: 09/22/22 12:02 Freq: Status: Active Protocol: Document 09/29/22 10:30 AMB (Rec: 10/01/22 11:58 AMB [id number]) Physical Therapy Assessment Rehab Potential Rehabilitation Potential Good Evaluation Complexity Number of Personal Factors/Comorbidities 1-2 Number of Body Systems Impaired 1-2 Clinical Presentation at Evaluation Stable Impairments Impairments Functional Activities,Strength Goals Two Impairment Continence Short Term Goal (STG) Roger will move from sit to stand without leaking urine. STG Duration 5 weeks Work Order Detailer Goal (LTG) Roger will workout on the elliptical for 30 minutes without leaking urine. LTG Duration 10 weeks One Impairment Pelvic floor strength Short Term Goal (STG) Roger will contract his pelvic floor for 10 seconds in standing. STG Duration 5 weeks Nursing Home Goal (LTG) Roger will contract his pelvic floor while moving from sit to stand. LTG Duration 12 weeks Assessment Summary Assessment Roger attends physical therapy with stress urinary incontinence symptoms after radiation induced hemorrhagic cystitis and 12 days of hospitalization and catheterization. He states after prostate surgery he tried to do Kegels and felt that he was able to do them, now he feels very weak. He does think that things are slightly better, as the hospitalization was back in June, but he continues to leak with any exercise, squatting,etc. Pt declined internal assessment at this visit, but will consider sEMG at next visit. Instructed in beginning strengthening program and pt does think he is able to contract pelvic floor, but subjectively feels weaker now than before most recent hospitalization. Physical Therapy Plan Frequency and Duration Frequency of Treatment 1x/Week Duration of treatment (weeks) 12 Plan of Care Start Date 09/29/22 Plan of Care End Date 12/22/22 Therapeutic Interventions Therapeutic Interventions Home Exercise Program,Manual Therapy,Neuromuscular Re- education,Self-Care/Home Management,Therapeutic Activities,Therapeutic Exercises Modalities Biofeedback,Electric Stimulation Next Visit Focus/Plan Next Note Type Treatment Note Next Visit Plan sEMG, progress strengthening into standing as tolerated Plan of Care Dates Plan of Care Start Date 09/29/22 Plan of Care End Date 12/22/22 Electronically Signed by: Natalia Serrano, PT 10/02/22 0932 If you are in agreement with this Plan of Care, please return a signed and dated copy. I have reviewed this Plan of Care and certify that the skilled therapy services above are required to meet the patient?s needs. Physician Signature Date Printed Name and Credentials Clinical Instructor Signature Printed Name and Credentials
--- NOTE | 2022-09-29 12:00 | PT.OIE ---
Current Diagnoses Malignant neoplasm of prostate (09/29/22) Bladder-neck obstruction (09/29/22) Stress incontinence (female) (male) (09/29/22) Past Medical History (Last Reviewed 08/17/22 @ 08:03 by Patricia Wong MD) Acquired contracture of bladder neck Diabetes mellitus with insulin therapy Elevated PSA Erectile dysfunction GERD (gastroesophageal reflux disease) Glucosuria Gross hematuria Hyperglycemia Hypertension Prostate cancer Prostate cancer Radiation cystitis Seasonal allergic rhinitis Past Surgical History (Last Reviewed 08/17/22 @ 08:03 by Patricia Wong MD) H/O prostate biopsy H/O prostatectomy Status post appendectomy Visit Care Team Role Provider Type Damaso Houston DO Family Provider Physician Primary Care Provider Specialty: Family Practice Address: [address] [place] [address], [facility] Email: [email or web address] Patricia Wong MD Attending Provider Physician Referring Provider Specialty: Urology Address: [address] [place] [address], [id number] Email: Physical Therapy Initial Evaluation PT-OP-A Visit Information Start: 09/22/22 12:02 Freq: Status: Active Protocol: Document 09/29/22 10:37 AMB (Rec: 09/29/22 11:02 AMB [id number]) Out-Patient Physical Therapy Visit Information Visit Information Visit Type Initial Evaluation Visit Start Time 10:30 Visit Stop Time 11:15 Total Visit Minutes 45 Visit Number 1 PT-OP-B Current Condition Start: 09/22/22 12:02 Freq: Status: Active Protocol: Document 09/29/22 10:37 AMB (Rec: 09/29/22 11:02 AMB [id number]) Current Condition History of Current Condition Onset Date 3 years ago Current Complaints Prostate cancer History of Current Condition RAdiation induced hemorrhagic cystitis. 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 Started peeing blood. 4 months ago, opened up the neck of the bladder now has less control. After catheterization was peeing straight blood. Was self cathing to make sure he didn't have retention, but then started bleeding to the point where he had to be hospitalized for 12 days and was catheterized the entire time. Exercise, standing, squatting all increase leaking , and sleeping and sitting are ok. Gets up multiple times at night. PSA undetectable for last 1.5 years. Personal Factors Other Personal Factors That May Effect DMII (began after hormone Therapy/Recovery therapy to reduce testosterone ), HTN, LBP, hx appendix removal PT-OP-C Subjective Start: 09/22/22 12:02 Freq: Status: Active Protocol: Document 09/29/22 10:30 AMB (Rec: 10/01/22 11:47 AMB [id number]) Patient Questionnaires Pelvic Pain and Urgency/Frequency Patient Symptom Scale Pelvic Pain Score 8 PT-OP-I Pelvic Floor Start: 09/22/22 12:02 Freq: Status: Active Protocol: Document 09/29/22 10:30 AMB (Rec: 10/01/22 11:48 AMB [id number]) Pelvic Floor Assessment Urine Pelvic Floor Surgery Yes: prostate Leakage Cause Exercise,Lifting Other Leakage Causes squats Voiding Frequency 7/day Nocturia 3 Urine Pad Type Depends Comments Pelvic Floor Comments pt declined pelvic floor assessment at this visit, will benefit from sEMG and possibly NMES at later visit. PT-OP-T Assessment and Plan Start: 09/22/22 12:02 Freq: Status: Active Protocol: Document 09/29/22 10:30 AMB (Rec: 10/01/22 11:58 AMB [id number]) Physical Therapy Assessment Rehab Potential Rehabilitation Potential Good Evaluation Complexity Number of Personal Factors/Comorbidities 1-2 Number of Body Systems Impaired 1-2 Clinical Presentation at Evaluation Stable Impairments Impairments Functional Activities,Strength Goals Two Impairment Continence Short Term Goal (STG) Roger will move from sit to stand without leaking urine. STG Duration 5 weeks Fdc Goal (LTG) Roger will workout on the elliptical for 30 minutes without leaking urine. LTG Duration 10 weeks One Impairment Pelvic floor strength Short Term Goal (STG) Roger will contract his pelvic floor for 10 seconds in standing. STG Duration 5 weeks Molder Fitting Goal (LTG) Roger will contract his pelvic floor while moving from sit to stand. LTG Duration 12 weeks Assessment Summary Assessment Roger attends physical therapy with stress urinary incontinence symptoms after radiation induced hemorrhagic cystitis and 12 days of hospitalization and catheterization. He states after prostate surgery he tried to do Kegels and felt that he was able to do them, now he feels very weak. He does think that things are slightly better, as the hospitalization was back in [place], but he continues to leak with any exercise, squatting,etc. Pt declined internal assessment at this visit, but will consider sEMG at next visit. Instructed in beginning strengthening program and pt does think he is able to contract pelvic floor, but subjectively feels weaker now than before most recent hospitalization. Physical Therapy Plan Frequency and Duration Frequency of Treatment 1x/Week Duration of treatment (weeks) 12 Plan of Care Start Date 09/29/22 Plan of Care End Date 12/22/22 Therapeutic Interventions Therapeutic Interventions Home Exercise Program,Manual Therapy,Neuromuscular Re- education,Self-Care/Home Management,Therapeutic Activities,Therapeutic Exercises Modalities Biofeedback,Electric Stimulation Next Visit Focus/Plan Next Note Type Treatment Note Next Visit Plan sEMG, progress strengthening into standing as tolerated
--- NOTE | 2022-10-13 15:56 | PT.OTN ---
Current Diagnoses Malignant neoplasm of prostate (10/13/22) Bladder-neck obstruction (10/13/22) Stress incontinence (female) (male) (10/13/22) Physical Therapy Treatment Note PT-OP-A Visit Information Start: 09/22/22 12:02 Freq: Status: Active Protocol: Document 10/13/22 11:26 AMB (Rec: 10/13/22 13:01 AMB [id number]) Out-Patient Physical Therapy Visit Information Visit Information Visit Type Treatment Note Visit Start Time 11:20 Visit Stop Time 12:00 Total Visit Minutes 40 Visit Number 2 PT-OP-B Current Condition Start: 09/22/22 12:02 Freq: Status: Active Protocol: Document 09/29/22 10:37 AMB (Rec: 09/29/22 11:02 AMB [id number]) Current Condition History of Current Condition Onset Date 3 years ago Current Complaints Prostate cancer History of Current Condition 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 Started peeing blood. 4 months ago, opened up the neck of the bladder now has less control. After catheterization was peeing straight blood. Was self cathing to make sure he didn't have retention, but then started bleeding to the point where he had to be hospitalized for 12 days and was catheterized the entire time. Exercise, standing, squatting all increase leaking , and sleeping and sitting are ok. Gets up multiple times at night. PSA undetectable for last 1.5 years. Personal Factors Other Personal Factors That May Effect DMII (began after hormone Therapy/Recovery therapy to reduce testosterone ), HTN, LBP, hx appendix removal PT-OP-C Subjective Start: 09/22/22 12:02 Freq: Status: Active Protocol: Document 10/13/22 11:26 AMB (Rec: 10/13/22 13:01 AMB [id number]) OP-PT Subjective Patient Comments Patient Comments Pt reports he is feeling better with continence with ambulation, but continued leaking on elliptical and squats. PT-OP-I Pelvic Floor Start: 09/22/22 12:02 Freq: Status: Active Protocol: Document 09/29/22 10:30 AMB (Rec: 10/01/22 11:48 AMB [id number]) Pelvic Floor Assessment Urine Pelvic Floor Surgery Yes: prostate Leakage Cause Exercise,Lifting Other Leakage Causes squats Voiding Frequency 7/day Nocturia 3 Urine Pad Type Depends Comments Pelvic Floor Comments pt declined pelvic floor assessment at this visit, will benefit from sEMG and possibly NMES at later visit. PT-OP-Q Treatments Start: 09/22/22 12:02 Freq: Status: Active Protocol: Document 10/13/22 11:20 AMB (Rec: 10/13/22 15:55 AMB [id number]) Neuro Re-Education Treatment Other Activities sEMG Details 40 min Comments See assessment. PT-OP-T Assessment and Plan Start: 09/22/22 12:02 Freq: Status: Active Protocol: Document 10/13/22 11:26 AMB (Rec: 10/13/22 13:01 AMB [id number]) Physical Therapy Assessment Goals Two Impairment Continence Short Term Goal (STG) Roger will move from sit to stand without leaking urine. STG Duration 5 weeks Security Solutions Architect Goal (LTG) Roger will workout on the elliptical for 30 minutes without leaking urine. LTG Duration 10 weeks One Impairment Pelvic floor strength Short Term Goal (STG) Roger will contract his pelvic floor for 10 seconds in standing. STG Duration 5 weeks Assisted Goal (LTG) Roger will contract his pelvic floor while moving from sit to stand. LTG Duration 12 weeks Assessment Summary Assessment Avg 26, max 46, baseline 7 for 5 second hold. 10 seond hold : 45 max avg 21. 10 second hold was more challenging, discussed try to add in movement to holds for more strengthening. Physical Therapy Plan Frequency and Duration Frequency of Treatment 1x/Week Duration of treatment (weeks) 12 Plan of Care Start Date 09/29/22 Plan of Care End Date 12/22/22 Therapeutic Interventions Therapeutic Interventions Home Exercise Program,Manual Therapy,Neuromuscular Re- education,Self-Care/Home Management,Therapeutic Activities,Therapeutic Exercises Modalities Biofeedback,Electric Stimulation Next Visit Focus/Plan Next Note Type Treatment Note Next Visit Plan sEMG, progress strengthening into standing as tolerated
--- NOTE | 2022-10-18 09:42 | PT-OP ANOTE ---
No show-- televox down, pt thought appt was on Sunday, confirmed next week's appt.
--- NOTE | 2022-10-23 21:33 | PT.OTN ---
Current Diagnoses Malignant neoplasm of prostate (10/23/22) Bladder-neck obstruction (10/23/22) Stress incontinence (female) (male) (10/23/22) Physical Therapy Treatment Note PT-OP-A Visit Information Start: 09/22/22 12:02 Freq: Status: Active Protocol: Document 10/23/22 10:32 AMB (Rec: 10/23/22 11:10 AMB [id number]) Out-Patient Physical Therapy Visit Information Visit Information Visit Type Treatment Note Visit Start Time 10:30 Visit Stop Time 11:15 Total Visit Minutes 45 Visit Number 3 PT-OP-B Current Condition Start: 09/22/22 12:02 Freq: Status: Active Protocol: Document 09/29/22 10:37 AMB (Rec: 09/29/22 11:02 AMB [id number]) Current Condition History of Current Condition Onset Date 3 years ago Current Complaints Prostate cancer History of Current Condition 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 Started peeing blood. 4 months ago, opened up the neck of the bladder now has less control. After catheterization was peeing straight blood. Was self cathing to make sure he didn't have retention, but then started bleeding to the point where he had to be hospitalized for 12 days and was catheterized the entire time. Exercise, standing, squatting all increase leaking , and sleeping and sitting are ok. Gets up multiple times at night. PSA undetectable for last 1.5 years. Personal Factors Other Personal Factors That May Effect DMII (began after hormone Therapy/Recovery therapy to reduce testosterone ), HTN, LBP, hx appendix removal PT-OP-C Subjective Start: 09/22/22 12:02 Freq: Status: Active Protocol: Document 10/23/22 10:32 AMB (Rec: 10/23/22 11:10 AMB [id number]) OP-PT Subjective Patient Comments Patient Comments About the same. If up all day does leak. PT-OP-I Pelvic Floor Start: 09/22/22 12:02 Freq: Status: Active Protocol: Document 09/29/22 10:30 AMB (Rec: 10/01/22 11:48 AMB [id number]) Pelvic Floor Assessment Urine Pelvic Floor Surgery Yes: prostate Leakage Cause Exercise,Lifting Other Leakage Causes squats Voiding Frequency 7/day Nocturia 3 Urine Pad Type Depends Comments Pelvic Floor Comments pt declined pelvic floor assessment at this visit, will benefit from sEMG and possibly NMES at later visit. PT-OP-Q Treatments Start: 09/22/22 12:02 Freq: Status: Active Protocol: Document 10/23/22 10:32 AMB (Rec: 10/23/22 11:10 AMB [id number]) Therapeutic Exercises Sitting Exercises long holds Reps/Minutes 2x10 quick flicks Reps/Minutes 30 january t ball Sitting Exercise Name focus on pelvic floor Reps/Minutes 30 Standing Exercises 1 Standing Exercise Name sit to stand Reps/Minutes 10 Comments challenging Other Exercises quadruped Comments pelvic floor contraction quick vs long PT-OP-T Assessment and Plan Start: 09/22/22 12:02 Freq: Status: Active Protocol: Document 10/23/22 10:32 AMB (Rec: 10/23/22 11:10 AMB [id number]) Physical Therapy Assessment Goals Two Impairment Continence Short Term Goal (STG) Roger will move from sit to stand without leaking urine. STG Duration 5 weeks [employer] Goal (LTG) Roger will workout on the elliptical for 30 minutes without leaking urine. LTG Duration 10 weeks One Impairment Pelvic floor strength Short Term Goal (STG) Roger will contract his pelvic floor for 10 seconds in standing. STG Duration 5 weeks Long-Term Goal (LTG) Roger will contract his pelvic floor while moving from sit to stand. LTG Duration 12 weeks Assessment Summary Assessment Roger was challenged by all exercises in standing, did better with sitting. Continued to encouraged standing exercises as that is where he is noticing the most leaking. Physical Therapy Plan Frequency and Duration Frequency of Treatment 1x/Week Duration of treatment (weeks) 12 Plan of Care Start Date 09/29/22 Plan of Care End Date 12/22/22 Therapeutic Interventions Therapeutic Interventions Home Exercise Program,Manual Therapy,Neuromuscular Re- education,Self-Care/Home Management,Therapeutic Activities,Therapeutic Exercises Modalities Biofeedback,Electric Stimulation Next Visit Focus/Plan Next Note Type Treatment Note Next Visit Plan sEMG, progress strengthening into standing as tolerated
--- NOTE | 2022-10-30 15:56 | PT.OTN ---
Current Diagnoses Malignant neoplasm of prostate (10/30/22) Bladder-neck obstruction (10/30/22) Stress incontinence (female) (male) (10/30/22) Physical Therapy Treatment Note PT-OP-A Visit Information Start: 09/22/22 12:02 Freq: Status: Active Protocol: Document 10/30/22 10:41 AMB (Rec: 10/30/22 11:06 AMB [id number]) Out-Patient Physical Therapy Visit Information Visit Information Visit Type Treatment Note Visit Start Time 10:30 Visit Stop Time 11:10 Total Visit Minutes 45 Visit Number 4 PT-OP-B Current Condition Start: 09/22/22 12:02 Freq: Status: Active Protocol: Document 09/29/22 10:37 AMB (Rec: 09/29/22 11:02 AMB [id number]) Current Condition History of Current Condition Onset Date 3 years ago Current Complaints Prostate cancer History of Current Condition 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 Started peeing blood. 4 months ago, opened up the neck of the bladder now has less control. After catheterization was peeing straight blood. Was self cathing to make sure he didn't have retention, but then started bleeding to the point where he had to be hospitalized for 12 days and was catheterized the entire time. Exercise, standing, squatting all increase leaking , and sleeping and sitting are ok. Gets up multiple times at night. PSA undetectable for last 1.5 years. Personal Factors Other Personal Factors That May Effect DMII (began after hormone Therapy/Recovery therapy to reduce testosterone ), HTN, LBP, hx appendix removal PT-OP-C Subjective Start: 09/22/22 12:02 Freq: Status: Active Protocol: Document 10/30/22 10:41 AMB (Rec: 10/30/22 11:06 AMB [id number]) OP-PT Subjective Patient Comments Patient Comments Feeling like making some sx PT-OP-I Pelvic Floor Start: 09/22/22 12:02 Freq: Status: Active Protocol: Document 09/29/22 10:30 AMB (Rec: 10/01/22 11:48 AMB [id number]) Pelvic Floor Assessment Urine Pelvic Floor Surgery Yes: prostate Leakage Cause Exercise,Lifting Other Leakage Causes squats Voiding Frequency 7/day Nocturia 3 Urine Pad Type Depends Comments Pelvic Floor Comments pt declined pelvic floor assessment at this visit, will benefit from sEMG and possibly NMES at later visit. PT-OP-Q Treatments Start: 09/22/22 12:02 Freq: Status: Active Protocol: Document 10/30/22 10:41 AMB (Rec: 10/30/22 11:06 AMB [id number]) Therapeutic Exercises Sitting Exercises long holds Reps/Minutes 2x10 quick flicks Reps/Minutes 30 january t ball Sitting Exercise Name focus on pelvic floor Reps/Minutes 30 Standing Exercises 1 Standing Exercise Name sit to stand Reps/Minutes 10 Comments challenging Other Exercises quadruped Comments pelvic floor contraction quick vs long PT-OP-T Assessment and Plan Start: 09/22/22 12:02 Freq: Status: Active Protocol: Document 10/30/22 10:41 AMB (Rec: 10/30/22 11:06 AMB [id number]) Physical Therapy Assessment Goals Two Impairment Continence Short Term Goal (STG) Roger will move from sit to stand without leaking urine. STG Duration MET [employer] Goal (LTG) Roger will workout on the elliptical for 30 minutes without leaking urine. LTG Duration NOT MET One Impairment Pelvic floor strength Short Term Goal (STG) Roger will contract his pelvic floor for 10 seconds in standing. STG Duration MET [employer] Goal (LTG) Roger will contract his pelvic floor while moving from sit to stand. LTG Duration MET Assessment Summary Assessment Roger feels ready for discharge at this point. Discussed at length times when he can practice his exercises . Encouraged when brushing teeth, while cooking, washing hands etc. generally standing encouraged. Pt is feeling like he needs time to work on it, and is seeing urologist this spring and if needs more help at that point he can ask for another referral. Physical Therapy Plan Frequency and Duration Frequency of Treatment 1x/Week Duration of treatment (weeks) 12 Plan of Care Start Date 09/29/22 Plan of Care End Date 12/22/22 Therapeutic Interventions Therapeutic Interventions Home Exercise Program,Manual Therapy,Neuromuscular Re- education,Self-Care/Home Management,Therapeutic Activities,Therapeutic Exercises Modalities Biofeedback,Electric Stimulation Next Visit Focus/Plan Next Note Type Treatment Note Next Visit Plan sEMG, progress strengthening into standing as tolerated
== END 2022-11-01 09:30 | disposition home or self-care (01) ==
LOC: PHYS 10:30
PROVIDERS: Family Provider Family Medicine; PCP Family Medicine; Referring Provider Specialist; Visit Provider Specialist
DX: C61 Malignant neoplasm of prostate (principal); N32.0 Bladder-neck obstruction; N39.3 Stress incontinence (female) (male)
CPT/HCPCS: 97110; 97112; 97161

== ENCOUNTER → 2023-02-07 09:13 | Outpatient (CLI) | payer OTHER, SELFPAY ==
[2022-07-03 21:24] VITALS: BMI 30.4
[2023-02-07 11:30] LABS: Prostate Specific Antigen < 0.064 ng/mL (0.10-4.00)
== END ==
PROVIDERS: Family Provider Family Medicine; PCP Family Medicine; Referring Provider Specialist; Visit Provider Specialist
DX: C61 Malignant neoplasm of prostate (principal)
CPT/HCPCS: 36415; 84153

== ENCOUNTER → 2023-03-09 09:26 | Outpatient (CLI) | payer OTHER, SELFPAY ==
[2022-07-03 21:24] VITALS: BMI 30.4
--- NOTE | 2023-03-09 09:28 | DI.RAD.S_ITS ---
PROCEDURE: XR KNEE LT 3V INDICATIONS: L knee pain TECHNIQUE: 3 views of the knee were acquired. COMPARISON: None. FINDINGS: Bones: No fractures or dislocations. No suspicious bony lesions. Soft tissues: No joint effusion. No suspicious soft tissue calcifications. IMPRESSION: Unremarkable left knee radiographs Approved by: Deni Rossi M.D. on 03/09/2023 at 13:47
== END ==
PROVIDERS: Family Provider Family Medicine; PCP Family Medicine; Referring Provider Family Medicine; Visit Provider Family Medicine
DX: M25.562 Pain in left knee (principal)
CPT/HCPCS: 73562

== ENCOUNTER → 2023-06-05 13:24 | Outpatient (CLI) | payer OTHER, SELFPAY ==
[2022-07-03 21:24] VITALS: BMI 30.4
[2023-06-05 15:37] LABS: Add Manual Diff / Slide Review NO; Basophils Absolute Auto 100 /uL (0-100); Basophils Percent Auto 0.9 % (0-2); Eosinophils Absolute Auto 100 /uL (0-450); Eosinophils Percent Auto 1.4 % (2-4); Hematocrit 33.9 % (41-53); Hemoglobin 11.5 g/dL (13.5-17.5); Lymphocytes Absolute Auto 1200 /uL (1100-4500); Lymphocytes Percent Auto 17.8 % (25-40); Mean Corpuscular Hemoglobin 28.9 PG (26-34); Mean Corpuscular Volume 85.3 fL (80-100); Monocytes Absolute Auto 500 /uL (0-900); Monocytes Percent Auto 8.3 % (3-14); Neutrophils Absolute Auto 4600 /uL (1500-7000); Neutrophils Percent Auto 71.6 % (50-75); Platelet Count 268 X10^3/uL (150-400); Red Blood Cell Count 3.97 X10^6/uL (4.5-5.9); Red Cell Distribution Width 14.4 % (11.6-14.8); White Blood Cell Count 6.5 X10^3/uL (4.5-11.0)
[2023-06-05 15:45] LABS: Reticulocyte Count, Percent 0.8 % (0.9-2.6)
[2023-06-05 16:12] LABS: HEMOLYSIS < 15 (0-50); Iron 49 ug/dL (49-181)
[2023-06-05 16:17] LABS: Alanine Aminotransferase 24 IU/L (<50); Albumin 4.6 g/dL (3.5-5.0); Albumin Globulin Ratio 1.7 (1.0-2.8); Alkaline Phosphatase 139 U/L (38-126); Aspartate Aminotransferase 26 IU/L (17-59); BUN Creatinine Ratio 16.4 (6-22); Bilirubin Total 0.4 mg/dL (0.2-1.3); Blood Urea Nitrogen 12 mg/dL (9-20); Calcium 9.9 mg/dL (8.4-10.2); Carbon Dioxide 29 mmol/L (22-32); Chloride 98 mmol/L (98-107); Estimated Glomerular Filt Rate > 60 mL/min (>60); Globulin 2.7 g/dL (1.7-4.1); Glucose 88 mg/dL (80-110); HEMOLYSIS < 15 (0-50); Potassium 4.2 mmol/L (3.4-5.1); Sodium 136 mmol/L (137-145); Total Protein 7.3 g/dL (6.3-8.2)
[2023-06-05 16:23] LABS: Percent Iron Saturation 9 % (20-50); Total Iron Binding Capacity 518 ug/dL (261-462); Transferrin 400 mg/dL (206-381)
[2023-06-05 16:49] LABS: Prostate Specific Antigen < 0.064 ng/mL (0.10-4.00)
[2023-06-05 17:07] LABS: Vitamin B12 823 pg/mL (239-931)
== END ==
PROVIDERS: Family Provider Family Medicine; PCP Family Medicine; Referring Provider Family Medicine; Visit Provider Family Medicine
DX: D64.9 Anemia, unspecified (principal); I10 Essential (primary) hypertension; Z85.46 Personal history of malignant neoplasm of prostate
CPT/HCPCS: 36415; 80053; 82607; 83540; 83550; 84153; 85025; 85045

== ENCOUNTER → 2023-06-15 11:23 | Outpatient (CLI) | payer OTHER, SELFPAY ==
[2022-07-03 21:24] VITALS: BMI 30.4
--- NOTE | 2023-06-15 11:25 | DI.MRI.S_ITS ---
PROCEDURE: MR KNEE LT WO CON INDICATIONS: Left knee pain/arthritis TECHNIQUE: Noncontrast sagittal PD fast spin echo and T2 fast spin echo with fat saturation, sagittal 3-D FLASH with fat saturation; coronal T1 spin echo and PD fast spin echo with fat saturation, and axial PD fast spin echo with fat saturation through the knee. COMPARISON: [facility], [place], XR KNEE LT 3V, 03/09/2023, 9:32. FINDINGS: Image quality: Excellent. Menisci: There is linear oblique high T2 signal intensity traversing the inner, middle, and peripheral thirds of the medial meniscal body and posterior horn. Radial tearing of the posterior horn medial meniscus is present. Discoid lateral meniscus is present without tear. Cruciate ligaments: The anterior and posterior cruciate ligaments appear intact. Medial structures: The medial collateral ligament appears intact. Mild T2 signal elevation surrounds the medial collateral ligament. Visualized portions of the pes anserinus tendons appear normal. No abnormal bursal fluid. Lateral structures: The lateral collateral ligament demonstrates mild T2 signal elevation at the femoral origin. The long and short heads of the biceps femoris tendon appear intact. The popliteus tendon appears normal. Iliotibial band appears normal. Anterior structures: The quadriceps and patellar tendons appear intact. Patellar alignment is normal. No femoral trochlear dysplasia or ventral trochlear prominence. No edema in the infrapatellar fat pad. Bones and cartilage: No bone marrow contusions or fractures. There is mild subchondral degenerative marrow edema within the patellar apex, medial patellar facet, as well as the medial and lateral tibial plateau. Mild tricompartmental periarticular osteophyte formation is present. Severe articular cartilage loss diffusely overlies the weight-bearing aspects of the medial femoral condyle and medial tibial plateau. Severe articular cartilage loss overlies the medial patellar apex. Joint space: There is a small knee joint effusion. No Short's cyst. Normal appearing synovial plicae are incidentally noted. IMPRESSION: 1. Complex tearing of the medial meniscus. 2. Discoid lateral meniscus without tear. 3. Medial collateral ligament strain. 4. Low-grade lateral collateral ligament tear. 5. Tricompartmental osteoarthritis with associated articular cartilage loss. 6. Small knee joint effusion. Dictated by: Donna Sellers M.D. on 06/15/2023 at 12:06 Approved by: Donna Sellers M.D. on 06/15/2023 at 12:12
== END ==
PROVIDERS: Family Provider Family Medicine; PCP Family Medicine; Referring Provider Family Medicine; Visit Provider Family Medicine
DX: S83.232A Complex tear of medial meniscus, current injury, left knee, initial encounter (principal); S83.412A Sprain of medial collateral ligament of left knee, initial encounter; S83.422A Sprain of lateral collateral ligament of left knee, initial encounter; M17.12 Unilateral primary osteoarthritis, left knee; M25.462 Effusion, left knee; M25.562 Pain in left knee
CPT/HCPCS: 73721

== ENCOUNTER → 2023-07-02 10:52 | Outpatient (CLI) | payer OTHER, SELFPAY ==
[2022-07-03 21:24] VITALS: BMI 30.4
--- NOTE | 2023-07-02 10:53 | DI.NM.S_ITS ---
PROCEDURE: [place] BONE SCAN WHOLE BODY RADIOPHARMACEUTICAL: 20 mCi Tc-99m MDP IV. INDICATIONS: eval and treat progressive arthitis TECHNIQUE: Delayed whole-body scintigrams were obtained approximately 3-4 hours after intravenous injection of radiotracer. Anterior and posterior views were acquired from vertex to feet. Additional left and right oblique views of the pelvis were obtained. COMPARISON: [place], [place], [place] BONE SCAN WHOLE BODY, 02/09/2020, 13:39. FINDINGS: Physiologic uptake is noted within the kidneys and bladder. There is increased uptake within the knees, small bones of the feet as well as risk bilaterally. Mild area of increased uptake is noted at L5 with minimal punctate areas scattered in the remaining thoracic and lumbar spine. IMPRESSION: Scattered areas of uptake most suggestive of arthritic change. Dictated by: Nichole Trammell M.D. on 07/02/2023 at 17:00 Approved by: Nichole Trammell M.D. on 07/02/2023 at 17:02
[2023-07-02 12:35] LABS: Albumin 4.6 g/dL (3.5-5.0); Blood Urea Nitrogen 14 mg/dL (9-20); Calcium 9.8 mg/dL (8.4-10.2); Carbon Dioxide 26 mmol/L (22-32); Chloride 96 mmol/L (98-107); Cholesterol 211 mg/dL (140-199); Estimated Glomerular Filt Rate > 60 mL/min (>60); Glucose 81 mg/dL (80-110); HDL Cholesterol 55 mg/dL (40-60); HEMOLYSIS < 15 (0-50); LDL Cholesterol Calculated 138 mg/dL (<100); Phosphorous 4.6 mg/dL (2.3-3.7); Potassium 4.8 mmol/L (3.4-5.1); Sodium 132 mmol/L (137-145); Triglycerides 90 mg/dL (35-150)
[2023-07-02 12:51] LABS: Creatinine Urine Random 104.7 mg/dL
[2023-07-02 12:55] LABS: Microalbumin Urine Random < 0.6 mg/dL (0-1.6)
== END ==
PROVIDERS: Student in an Organized Health Care Education/Training Program; Family Provider Family Medicine; PCP Family Medicine; Referring Provider Family Medicine; Visit Provider Family Medicine
DX: E11.43 Type 2 diabetes mellitus with diabetic autonomic (poly)neuropathy (principal); M19.90 Unspecified osteoarthritis, unspecified site; M25.80 Other specified joint disorders, unspecified joint; Z79.4 Long term (current) use of insulin
CPT/HCPCS: 36415; 78306; 80061; 80069; 82043; 82570; A9503

== ENCOUNTER → 2023-08-14 13:32 | Outpatient (CLI) | payer OTHER, SELFPAY ==
[2022-07-03 21:24] VITALS: BMI 30.4
[2023-08-14 15:20] LABS: Prostate Specific Antigen 0.178 ng/mL (0.10-4.00)
== END ==
PROVIDERS: Family Provider Family Medicine; PCP Family Medicine; Referring Provider Specialist; Visit Provider Specialist
DX: Z85.46 Personal history of malignant neoplasm of prostate (principal)
CPT/HCPCS: 36415; 84153

== ENCOUNTER → 2023-09-04 09:01 | Outpatient (CLI) | payer OTHER, SELFPAY ==
[2022-07-03 21:24] VITALS: BMI 30.4
[2023-09-04 10:33] LABS: Albumin 4.6 g/dL (3.5-5.0); Blood Urea Nitrogen 13 mg/dL (9-20); Calcium 10.2 mg/dL (8.4-10.2); Carbon Dioxide 25 mmol/L (22-32); Chloride 100 mmol/L (98-107); Cholesterol 173 mg/dL (140-199); Estimated Glomerular Filt Rate > 60 mL/min (>60); Glucose 105 mg/dL (80-110); HDL Cholesterol 50 mg/dL (40-60); HEMOLYSIS < 15 (0-50); LDL Cholesterol Calculated 96 mg/dL (<100); Phosphorous 4.3 mg/dL (2.3-3.7); Potassium 4.4 mmol/L (3.4-5.1); Sodium 138 mmol/L (137-145); Triglycerides 134 mg/dL (35-150)
[2023-09-04 16:09] LABS: Creatinine Urine Random 248.8 mg/dL
[2023-09-04 16:12] LABS: Microalbumi Creatinin Ratio Ur 4.8 ug/mg CR (<30); Microalbumin Urine Random 1.2 mg/dL (0-1.6)
== END ==
PROVIDERS: Family Provider Family Medicine; PCP Family Medicine; Referring Provider Student in an Organized Health Care Education/Training Program; Visit Provider Student in an Organized Health Care Education/Training Program
DX: E11.43 Type 2 diabetes mellitus with diabetic autonomic (poly)neuropathy (principal); Z79.4 Long term (current) use of insulin
CPT/HCPCS: 36415; 80061; 80069; 82043; 82570

== ENCOUNTER → 2023-11-19 09:50 | Outpatient (CLI) | payer OTHER, SELFPAY ==
[2022-07-03 21:24] VITALS: BMI 30.4
[2023-11-19 11:33] LABS: Hemoglobin A1C% w Est Avg Glu 5.1 % (4.0-6.0)
[2023-11-19 11:47] LABS: Alanine Aminotransferase 20 IU/L (<50); Albumin 4.6 g/dL (3.5-5.0); Albumin Globulin Ratio 1.5 (1.0-2.8); Alkaline Phosphatase 91 U/L (38-126); Aspartate Aminotransferase 25 IU/L (17-59); BUN Creatinine Ratio 17.9 (6-22); Bilirubin Total 0.5 mg/dL (0.2-1.3); Blood Urea Nitrogen 15 mg/dL (9-20); Calcium 10.2 mg/dL (8.4-10.2); Carbon Dioxide 31 mmol/L (22-32); Chloride 96 mmol/L (98-107); Estimated Glomerular Filt Rate > 60 mL/min (>60); Globulin 3.1 g/dL (1.7-4.1); Glucose 104 mg/dL (80-110); HEMOLYSIS < 15 (0-50); Potassium 4.8 mmol/L (3.4-5.1); Sodium 133 mmol/L (137-145); Total Protein 7.7 g/dL (6.3-8.2)
[2023-11-19 12:12] LABS: Prostate Specific Antigen 0.795 ng/mL (0.10-4.00)
== END ==
LOC: LAB 09:51
PROVIDERS: Family Provider Family Medicine; PCP Family Medicine; Referring Provider Specialist; Visit Provider Specialist
DX: C61 Malignant neoplasm of prostate (principal); E11.9 Type 2 diabetes mellitus without complications; Z79.4 Long term (current) use of insulin; I10 Essential (primary) hypertension
CPT/HCPCS: 36415; 80053; 83036; 84153

== ENCOUNTER → 2024-02-13 13:44 | Outpatient (CLI) | payer OTHER, SELFPAY ==
[2022-07-03 21:24] VITALS: BMI 30.4
[2024-02-13 14:26] LABS: Add Manual Diff / Slide Review NO; Basophils Absolute Auto 100 /uL (0-100); Basophils Percent Auto 1.3 % (0-2); Eosinophils Absolute Auto 100 /uL (0-450); Eosinophils Percent Auto 1.1 % (2-4); Hemoglobin 13.2 g/dL (13.5-17.5); Lymphocytes Absolute Auto 1100 /uL (1100-4500); Mean Corpuscular HGB Conc 34.8 % (30-36); Mean Corpuscular Hemoglobin 32.4 PG (26-34); Mean Corpuscular Volume 93.3 fL (80-100); Monocytes Absolute Auto 400 /uL (0-900); Monocytes Percent Auto 7.9 % (3-14); Neutrophils Absolute Auto 3500 /uL (1500-7000); Neutrophils Percent Auto 68.7 % (50-75); Platelet Count 298 X10^3/uL (150-400); Red Blood Cell Count 4.07 X10^6/uL (4.5-5.9); Red Cell Distribution Width 12.8 % (11.6-14.8); White Blood Cell Count 5.2 X10^3/uL (4.5-11.0)
[2024-02-13 14:37] LABS: HEMOLYSIS < 15 (0-50); Iron 87 ug/dL (49-181)
[2024-02-13 14:39] LABS: Alanine Aminotransferase 15 IU/L (<50); Albumin 4.9 g/dL (3.5-5.0); Albumin Globulin Ratio 1.8 (1.0-2.8); Alkaline Phosphatase 84 U/L (38-126); Aspartate Aminotransferase 21 IU/L (17-59); BUN Creatinine Ratio 17.8 (6-22); Bilirubin Total 0.5 mg/dL (0.2-1.3); Blood Urea Nitrogen 13 mg/dL (9-20); Calcium 10.1 mg/dL (8.4-10.2); Carbon Dioxide 24 mmol/L (22-32); Chloride 99 mmol/L (98-107); Estimated Glomerular Filt Rate > 60 mL/min (>60); Globulin 2.8 g/dL (1.7-4.1); Glucose 89 mg/dL (80-110); HEMOLYSIS < 15 (0-50); Sodium 135 mmol/L (137-145); Total Protein 7.7 g/dL (6.3-8.2)
[2024-02-13 14:48] LABS: Percent Iron Saturation 26 % (20-50); Total Iron Binding Capacity 336 ug/dL (261-462); Transferrin 284 mg/dL (206-381)
[2024-02-13 15:09] LABS: Prostate Specific Antigen 1.68 ng/mL (0.10-4.00)
[2024-02-13 15:15] LABS: Ferritin 93 ng/mL (18-464)
== END ==
PROVIDERS: Specialist; Family Provider Family Medicine; PCP Family Medicine; Referring Provider Nurse Practitioner; Visit Provider Nurse Practitioner
DX: D50.0 Iron deficiency anemia secondary to blood loss (chronic) (principal); Z09 Encounter for follow-up examination after completed treatment for conditions other than malignant neoplasm; C61 Malignant neoplasm of prostate; R97.21 Rising PSA following treatment for malignant neoplasm of prostate
CPT/HCPCS: 36415; 80053; 82728; 83540; 83550; 84153; 85025

== ENCOUNTER → 2024-06-24 10:04 | Outpatient (CLI) | payer OTHER, SELFPAY ==
[2022-07-03 21:24] VITALS: BMI 30.4
[2024-06-24 11:11] LABS: Add Manual Diff / Slide Review NO; Basophils Absolute Auto 100 /uL (0-100); Basophils Percent Auto 1.5 % (0-2); Eosinophils Absolute Auto 100 /uL (0-450); Eosinophils Percent Auto 1.8 % (2-4); Hematocrit 32.8 % (41-53); Hemoglobin 11.4 g/dL (13.5-17.5); Lymphocytes Absolute Auto 1000 /uL (1100-4500); Lymphocytes Percent Auto 23.9 % (25-40); Mean Corpuscular HGB Conc 34.6 % (30-36); Mean Corpuscular Hemoglobin 32.7 PG (26-34); Mean Corpuscular Volume 94.3 fL (80-100); Monocytes Absolute Auto 400 /uL (0-900); Monocytes Percent Auto 10.2 % (3-14); Neutrophils Absolute Auto 2700 /uL (1500-7000); Neutrophils Percent Auto 62.6 % (50-75); Platelet Count 256 X10^3/uL (150-400); Red Blood Cell Count 3.48 X10^6/uL (4.5-5.9); Red Cell Distribution Width 13.3 % (11.6-14.8); White Blood Cell Count 4.3 X10^3/uL (4.5-11.0)
[2024-06-24 11:36] LABS: Alanine Aminotransferase 22 IU/L (<50); Albumin 4.2 g/dL (3.5-5.0); Albumin Globulin Ratio 2.1 (1.0-2.8); Alkaline Phosphatase 73 U/L (38-126); Aspartate Aminotransferase 26 IU/L (17-59); BUN Creatinine Ratio 21.4 (6-22); Bilirubin Total 0.5 mg/dL (0.2-1.3); Blood Urea Nitrogen 12 mg/dL (9-20); Calcium 9.4 mg/dL (8.4-10.2); Carbon Dioxide 22 mmol/L (22-32); Chloride 103 mmol/L (98-107); Estimated Glomerular Filt Rate > 60 mL/min (>60); Glucose 156 mg/dL (80-110); HEMOLYSIS < 15 (0-50); Lactate Dehydrogenase 139 U/L (120-246); Potassium 3.1 mmol/L (3.4-5.1); Sodium 137 mmol/L (137-145); Total Protein 6.2 g/dL (6.3-8.2)
[2024-06-24 11:45] LABS: HEMOLYSIS < 15 (0-50); Iron 93 ug/dL (49-181)
[2024-06-24 11:58] LABS: Transferrin 265 mg/dL (206-381)
[2024-06-24 12:02] LABS: Prostate Specific Antigen 0.172 ng/mL (0.10-4.00)
[2024-06-24 12:07] LABS: Ferritin 44 ng/mL (18-464); Testosterone 52.2 ng/dL (71.8-623)
== END ==
PROVIDERS: Family Provider Family Medicine; PCP Family Medicine; Referring Provider Internal Medicine Hematology & Oncology; Visit Provider Internal Medicine Hematology & Oncology
DX: C61 Malignant neoplasm of prostate (principal); R97.20 Elevated prostate specific antigen [PSA]; D50.0 Iron deficiency anemia secondary to blood loss (chronic); E11.9 Type 2 diabetes mellitus without complications; I10 Essential (primary) hypertension; D64.9 Anemia, unspecified
CPT/HCPCS: 36415; 80053; 82728; 83540; 83550; 83615; 84153; 84403; 85025

== ENCOUNTER → 2024-09-15 13:31 | Outpatient (CLI) | payer OTHER, SELFPAY ==
[2022-07-03 21:24] VITALS: BMI 30.4
[2024-09-15 14:46] LABS: Add Manual Diff / Slide Review NO; Basophils Absolute Auto 100 /uL (0-100); Basophils Percent Auto 1.4 % (0-2); Eosinophils Absolute Auto 0 /uL (0-450); Eosinophils Percent Auto 0.9 % (2-4); Hematocrit 33.3 % (41-53); Hemoglobin 11.7 g/dL (13.5-17.5); Lymphocytes Absolute Auto 700 /uL (1100-4500); Mean Corpuscular HGB Conc 35.1 % (30-36); Mean Corpuscular Hemoglobin 33.1 PG (26-34); Mean Corpuscular Volume 94.4 fL (80-100); Monocytes Absolute Auto 300 /uL (0-900); Monocytes Percent Auto 7.3 % (3-14); Neutrophils Absolute Auto 3100 /uL (1500-7000); Neutrophils Percent Auto 73.4 % (50-75); Platelet Count 230 X10^3/uL (150-400); Red Blood Cell Count 3.52 X10^6/uL (4.5-5.9); Red Cell Distribution Width 12.6 % (11.6-14.8); White Blood Cell Count 4.2 X10^3/uL (4.5-11.0)
[2024-09-15 14:59] LABS: Alanine Aminotransferase 16 IU/L (<50); Albumin 4.3 g/dL (3.5-5.0); Albumin Globulin Ratio 1.9 (1.0-2.8); Alkaline Phosphatase 59 U/L (38-126); Aspartate Aminotransferase 26 IU/L (17-59); Bilirubin Total 0.5 mg/dL (0.2-1.3); Blood Urea Nitrogen 17 mg/dL (9-20); Calcium 9.5 mg/dL (8.4-10.2); Carbon Dioxide 28 mmol/L (22-32); Chloride 96 mmol/L (98-107); Estimated Glomerular Filt Rate > 60 mL/min (>60); Globulin 2.3 g/dL (1.7-4.1); Glucose 112 mg/dL (80-110); HEMOLYSIS < 15 (0-50); Lactate Dehydrogenase 142 U/L (120-246); Potassium 4.2 mmol/L (3.4-5.1); Sodium 132 mmol/L (137-145); Total Protein 6.6 g/dL (6.3-8.2)
[2024-09-15 15:28] LABS: Prostate Specific Antigen 0.085 ng/mL (0.10-4.00)
[2024-09-15 15:31] LABS: Testosterone 30.9 ng/dL (71.8-623)
== END ==
PROVIDERS: Family Provider Family Medicine; PCP Family Medicine; Referring Provider Internal Medicine Hematology & Oncology; Visit Provider Internal Medicine Hematology & Oncology
DX: C61 Malignant neoplasm of prostate (principal); R97.20 Elevated prostate specific antigen [PSA]; I10 Essential (primary) hypertension; D64.9 Anemia, unspecified
CPT/HCPCS: 36415; 80053; 83615; 84153; 84403; 85025

== ENCOUNTER → 2024-12-16 12:55 | Outpatient (CLI) | payer OTHER, SELFPAY ==
[2022-07-03 21:24] VITALS: BMI 30.4
[2024-12-16 13:40] LABS: Add Manual Diff / Slide Review NO; Basophils Absolute Auto 100 /uL (0-100); Eosinophils Absolute Auto 0 /uL (0-450); Eosinophils Percent Auto 0.4 % (2-4); Hematocrit 35.1 % (41-53); Hemoglobin 11.9 g/dL (13.5-17.5); Lymphocytes Absolute Auto 800 /uL (1100-4500); Lymphocytes Percent Auto 15.4 % (25-40); Mean Corpuscular HGB Conc 34.1 % (30-36); Mean Corpuscular Hemoglobin 31.9 PG (26-34); Mean Corpuscular Volume 93.5 fL (80-100); Monocytes Absolute Auto 300 /uL (0-900); Neutrophils Absolute Auto 4000 /uL (1500-7000); Neutrophils Percent Auto 78.2 % (50-75); Platelet Count 265 X10^3/uL (150-400); Red Blood Cell Count 3.75 X10^6/uL (4.5-5.9); Red Cell Distribution Width 13.3 % (11.6-14.8); White Blood Cell Count 5.1 X10^3/uL (4.5-11.0)
[2024-12-16 13:58] LABS: Erythrocyte Sedimentation Rate 9 MM/HR (0-15)
[2024-12-16 14:11] LABS: HEMOLYSIS < 15 (0-50)
[2024-12-16 14:18] LABS: Alanine Aminotransferase 26 IU/L (<50); Albumin 4.8 g/dL (3.5-5.0); Albumin Globulin Ratio 2.1 (1.0-2.8); Alkaline Phosphatase 71 U/L (38-126); Aspartate Aminotransferase 34 IU/L (17-59); Bilirubin Total 0.5 mg/dL (0.2-1.3); Blood Urea Nitrogen 13 mg/dL (9-20); Calcium 9.8 mg/dL (8.4-10.2); Carbon Dioxide 26 mmol/L (22-32); Chloride 99 mmol/L (98-107); Estimated Glomerular Filt Rate > 60 mL/min (>60); Globulin 2.3 g/dL (1.7-4.1); Glucose 140 mg/dL (80-110); Lactate Dehydrogenase 179 U/L (120-246); Potassium 4.1 mmol/L (3.4-5.1); Sodium 135 mmol/L (137-145); Total Protein 7.1 g/dL (6.3-8.2)
[2024-12-16 14:48] LABS: Prostate Specific Antigen < 0.064 ng/mL (0.10-4.00)
[2024-12-16 14:52] LABS: Testosterone 24.7 ng/dL (71.8-623)
== END ==
LOC: LAB 12:56
PROVIDERS: Family Provider Family Medicine; PCP Family Medicine; Referring Provider Internal Medicine Hematology & Oncology; Visit Provider Internal Medicine Hematology & Oncology
DX: C61 Malignant neoplasm of prostate (principal); R97.20 Elevated prostate specific antigen [PSA]; I10 Essential (primary) hypertension; D64.9 Anemia, unspecified
CPT/HCPCS: 36415; 80053; 83615; 84153; 84403; 85025; 85651

== ENCOUNTER → 2025-03-02 13:59 | Outpatient (CLI) | payer OTHER, SELFPAY ==
[2022-07-03 21:24] VITALS: BMI 30.4
[2025-03-02 14:45] LABS: Hematocrit 35.2 % (41-53); Hemoglobin 11.9 g/dL (13.5-17.5); Mean Corpuscular HGB Conc 33.8 % (30-36); Mean Corpuscular Hemoglobin 31.5 PG (26-34); Mean Corpuscular Volume 93.1 fL (80-100); Platelet Count 235 X10^3/uL (150-400); Red Blood Cell Count 3.78 X10^6/uL (4.5-5.9); Red Cell Distribution Width 12.9 % (11.6-14.8)
[2025-03-02 14:47] LABS: Alanine Aminotransferase 22 IU/L (<50); Albumin 4.9 g/dL (3.5-5.0); Albumin Globulin Ratio 2.1 (1.0-2.8); Alkaline Phosphatase 62 U/L (38-126); Aspartate Aminotransferase 30 IU/L (17-59); BUN Creatinine Ratio 24.2 (6-22); Bilirubin Total 0.6 mg/dL (0.2-1.3); Blood Urea Nitrogen 15 mg/dL (9-20); Calcium 9.8 mg/dL (8.4-10.2); Carbon Dioxide 27 mmol/L (22-32); Chloride 97 mmol/L (98-107); Estimated Glomerular Filt Rate > 60 mL/min (>60); Globulin 2.3 g/dL (1.7-4.1); Glucose 127 mg/dL (80-110); HEMOLYSIS < 15 (0-50); Lactate Dehydrogenase 157 U/L (120-246); Potassium 3.8 mmol/L (3.4-5.1); Sodium 134 mmol/L (137-145); Total Protein 7.2 g/dL (6.3-8.2)
[2025-03-02 15:19] LABS: Prostate Specific Antigen < 0.064 ng/mL (0.10-4.00)
[2025-03-02 15:22] LABS: Testosterone 14.7 ng/dL (71.8-623)
[2025-03-02 15:23] LABS: Erythrocyte Sedimentation Rate 9 MM/HR (0-15)
== END ==
PROVIDERS: Family Provider Family Medicine; PCP Family Medicine; Referring Provider Internal Medicine Hematology & Oncology; Visit Provider Internal Medicine Hematology & Oncology
DX: C61 Malignant neoplasm of prostate (principal)
CPT/HCPCS: 36415; 80053; 83615; 84153; 84403; 85027; 85651

== ENCOUNTER → 2025-03-17 11:12 | Outpatient (CLI) | payer OTHER, SELFPAY ==
[2022-07-03 21:24] VITALS: BMI 30.4
--- NOTE | 2025-03-17 11:13 | DI.US.S_ITS ---
PROCEDURE: US CHEST TECHNIQUE: Real-time grayscale and color flow imaging at the area of concern with image documentation. COMPARISON: None. INDICATIONS: mass on chest, right upper FINDINGS: In the subcutaneous tissues at the area of concern there is a 1.0 x 0.3 x 1.0 hypoechoic lesion abutting the undersurface of the dermis. Suspected tract to the skin surface. Mild adjacent vascularity. IMPRESSION: Subcutaneous hypoechoic 1.0 cm lesion at the palpable area of concern abutting the dermis is most suspicious for a special cyst although other benign and malignant soft tissue lesions are not excluded. Approved by: Cecilio Baron M.D. on 03/17/2025 at 19:25
== END ==
LOC: US 11:12
PROVIDERS: Family Provider Family Medicine; PCP Family Medicine; Referring Provider Family Medicine; Visit Provider Family Medicine
DX: R22.2 Localized swelling, mass and lump, trunk (principal)
CPT/HCPCS: 76604

== ENCOUNTER → 2025-05-20 10:10 | Outpatient (CLI) | payer OTHER, SELFPAY ==
[2022-07-03 21:24] VITALS: BMI 30.4
[2025-05-20 10:50] LABS: Appearance Urine UA CLEAR; Bilirubin Urine UA NEGATIVE (NEGATIVE); Color Urine UA YELLOW; Glucose Urine UA NEGATIVE (Negative); Ketones Urine UA NEGATIVE (NEGATIVE); Leukocyte Esterase Urine UA NEGATIVE (NEGATIVE); Nitrite Urine UA NEGATIVE (Negative); Occult Blood Urine UA 1+ (Negative); Protein Urine UA NEGATIVE (Negative); Specific Gravity Urine UA 1.010 (1.000-1.035); Urobilinogen Urine UA 0.2 E.U./dL (0.2); pH Urine UA 6.5 (4.5-8.0)
[2025-05-20 11:05] LABS: Culture Indicated Urine Cult Not Indicated
== END ==
PROVIDERS: Family Provider Family Medicine; PCP Family Medicine; Visit Provider Urology
DX: N30.40 Irradiation cystitis without hematuria (principal); R31.0 Gross hematuria
CPT/HCPCS: 81001

== ENCOUNTER → 2025-06-11 14:00 | Outpatient (CLI) | payer OTHER, SELFPAY ==
[2022-07-03 21:24] VITALS: BMI 30.4
[2025-06-11 14:31] LABS: Add Manual Diff / Slide Review NO; Hematocrit 34.2 % (41-53); Hemoglobin 11.9 g/dL (13.5-17.5); Lymphocytes Absolute Auto 800 /uL (1100-4500); Mean Corpuscular HGB Conc 34.8 % (30-36); Mean Corpuscular Hemoglobin 32.2 PG (26-34); Mean Corpuscular Volume 92.5 fL (80-100); Platelet Count 270 X10^3/uL (150-400)
[2025-06-11 14:46] LABS: Alanine Aminotransferase 16 IU/L (<50); Albumin 4.7 g/dL (3.5-5.0); Albumin Globulin Ratio 2.0 (1.0-2.8); Alkaline Phosphatase 73 U/L (38-126); Blood Urea Nitrogen 11 mg/dL (9-20); Calcium 9.5 mg/dL (8.4-10.2); Carbon Dioxide 23 mmol/L (22-32); Chloride 98 mmol/L (98-107); Cholesterol 199 mg/dL (140-199); Estimated Glomerular Filt Rate > 60 mL/min (>60); Globulin 2.3 g/dL (1.7-4.1); Glucose 100 mg/dL (70-99); HDL Cholesterol 96 mg/dL (40-60); HEMOLYSIS < 15 (0-50); Potassium 4.0 mmol/L (3.4-5.1); Sodium 130 mmol/L (137-145); Total Protein 7.0 g/dL (6.3-8.2); Triglycerides 59 mg/dL (35-150)
[2025-06-11 15:17] LABS: Prostate Specific Antigen < 0.064 ng/mL (0.10-4.00)
== END ==
PROVIDERS: Family Provider Family Medicine; PCP Family Medicine; Referring Provider Internal Medicine Hematology & Oncology; Visit Provider Internal Medicine Hematology & Oncology
DX: C61 Malignant neoplasm of prostate (principal); D64.9 Anemia, unspecified; E11.9 Type 2 diabetes mellitus without complications; I10 Essential (primary) hypertension; R97.20 Elevated prostate specific antigen [PSA]
CPT/HCPCS: 36415; 80053; 80061; 83615; 84153; 84403; 85025; 85651

== ENCOUNTER → 2025-09-02 14:09 | Outpatient (CLI) | payer OTHER, SELFPAY ==
[2022-07-03 21:24] VITALS: BMI 30.4
[2025-09-02 14:43] LABS: Add Manual Diff / Slide Review NO; Hematocrit 33.2 % (41-53); Hemoglobin 11.5 g/dL (13.5-17.5); Lymphocytes Absolute Auto 800 /uL (1100-4500); Mean Corpuscular HGB Conc 34.6 % (30-36); Mean Corpuscular Hemoglobin 31.2 PG (26-34); Mean Corpuscular Volume 90.0 fL (80-100); Platelet Count 247 X10^3/uL (150-400)
[2025-09-02 15:32] LABS: HEMOLYSIS < 15 (0-50); Iron 59 ug/dL (49-181)
[2025-09-02 15:33] LABS: Alanine Aminotransferase 17 IU/L (<50); Albumin 4.7 g/dL (3.5-5.0); Albumin Globulin Ratio 1.9 (1.0-2.8); Alkaline Phosphatase 48 U/L (38-126); Blood Urea Nitrogen 9 mg/dL (9-20); Calcium 9.4 mg/dL (8.4-10.2); Carbon Dioxide 25 mmol/L (22-32); Chloride 96 mmol/L (98-107); Estimated Glomerular Filt Rate > 60 mL/min (>60); Globulin 2.5 g/dL (1.7-4.1); Glucose 89 mg/dL (70-99); HEMOLYSIS < 15 (0-50); Potassium 3.5 mmol/L (3.4-5.1); Sodium 131 mmol/L (137-145); Total Protein 7.2 g/dL (6.3-8.2)
[2025-09-02 15:43] LABS: Percent Iron Saturation 15 % (20-50); Total Iron Binding Capacity 388 ug/dL (261-462); Transferrin 342 mg/dL (206-381)
[2025-09-02 16:06] LABS: Prostate Specific Antigen < 0.064 ng/mL (0.10-4.00)
[2025-09-02 16:09] LABS: Ferritin 11 ng/mL (18-464)
== END ==
LOC: LAB 14:11
PROVIDERS: Family Provider Family Medicine; PCP Family Medicine; Referring Provider Internal Medicine Hematology & Oncology; Visit Provider Internal Medicine Hematology & Oncology
DX: C61 Malignant neoplasm of prostate (principal); D64.9 Anemia, unspecified
CPT/HCPCS: 36415; 80053; 82728; 83540; 83550; 84153; 84403; 85025; 85651

== ENCOUNTER → 2025-10-06 09:39 | Outpatient (CLI) | payer OTHER, SELFPAY ==
[2022-07-03 21:24] VITALS: BMI 30.4
== END ==
LOC: WC 10:17
PROVIDERS: Family Provider Family Medicine; PCP Family Medicine; Referring Provider Urology; Visit Provider Surgery
DX: L59.8 Other specified disorders of the skin and subcutaneous tissue related to radiation (principal); N30.41 Irradiation cystitis with hematuria
CPT/HCPCS: 99203; 99212

== ENCOUNTER → 2025-10-23 10:47 | Outpatient (CLI) | payer OTHER, SELFPAY ==
[2022-07-03 21:24] VITALS: BMI 30.4
== END ==
PROVIDERS: Family Provider Family Medicine; PCP Family Medicine; Referring Provider Surgery; Visit Provider Surgery
DX: N30.40 Irradiation cystitis without hematuria (principal)
CPT/HCPCS: 71046

== ENCOUNTER → 2025-10-29 11:37 | Outpatient (CLI) | payer OTHER, SELFPAY ==
[2022-07-03 21:24] VITALS: BMI 30.4
== END ==
LOC: WC 11:38
PROVIDERS: Family Provider Family Medicine; PCP Family Medicine; Referring Provider Urology; Visit Provider Surgery
DX: L59.8 Other specified disorders of the skin and subcutaneous tissue related to radiation (principal); N30.41 Irradiation cystitis with hematuria; C61 Malignant neoplasm of prostate; E11.9 Type 2 diabetes mellitus without complications
CPT/HCPCS: 99211; 99213

== ENCOUNTER → 2025-11-09 16:29 | Outpatient (CLI) | payer OTHER, SELFPAY ==
[2022-07-03 21:24] VITALS: BMI 30.4
== END ==
LOC: WC 16:30
PROVIDERS: Family Provider Family Medicine; PCP Family Medicine; Referring Provider Family Medicine; Visit Provider Surgery
DX: L59.8 Other specified disorders of the skin and subcutaneous tissue related to radiation (principal); N30.41 Irradiation cystitis with hematuria
CPT/HCPCS: 99183; G0277

== ENCOUNTER → 2025-11-10 10:53 | Outpatient (CLI) | payer OTHER, SELFPAY ==
[2022-07-03 21:24] VITALS: BMI 30.4
== END ==
LOC: WC 10:56
PROVIDERS: Family Provider Family Medicine; PCP Family Medicine; Referring Provider Family Medicine; Visit Provider Surgery
DX: L59.8 Other specified disorders of the skin and subcutaneous tissue related to radiation (principal); N30.41 Irradiation cystitis with hematuria
CPT/HCPCS: 99183; G0277

== ENCOUNTER → 2025-11-11 10:39 | Outpatient (CLI) | payer OTHER, SELFPAY ==
[2022-07-03 21:24] VITALS: BMI 30.4
== END ==
LOC: WC 10:39
PROVIDERS: Family Provider Family Medicine; PCP Family Medicine; Referring Provider Family Medicine; Visit Provider Surgery
DX: L59.8 Other specified disorders of the skin and subcutaneous tissue related to radiation (principal); N30.41 Irradiation cystitis with hematuria
CPT/HCPCS: 99183; G0277